=== PATIENT | female | born 1950 | race Caucasian/White ===

== ENCOUNTER → 2017-08-04 15:47 | Outpatient (CLI) | payer MEDICARE, OTHER, SELFPAY ==
[2017-08-04 18:26] LABS: Anion Gap 6 (5-15); BUN 20 mg/dL (7-18); BUN/Creat Ratio 32.7 RATIO (10-20); Calcium,Total 9.3 mg/dL (8.5-10.1); Chloride 106 mmol/L (98-107); Creatinine, Serum 0.61 mg/dL (0.55-1.02); EST Glomerular Filtration Rate 104 mL/min (>60); Est Glom Filt Rate - Afr Amer 125 mL/min (>60); Glucose 88 mg/dL (74-106); Potassium 3.8 mmol/L (3.5-5.1); Sodium Level 140 mmol/L (136-145); T4 Free Direct 0.89 ng/dL (0.76-1.46); Thyroid Stim Hormone (TSH) 2.71 uIU/mL (0.358-3.74)
== END ==
PROVIDERS: Family Provider Family Medicine; PCP Family Medicine; Visit Provider Family Medicine
DX: E03.9 Hypothyroidism, unspecified (principal); R73.01 Impaired fasting glucose
CPT/HCPCS: 36415; 80048; 84439; 84443

== ENCOUNTER 2017-12-09 03:29 | Emergency (ER) | payer MEDICARE, OTHER, SELFPAY ==
[2017-12-09 03:30] VITALS: BP 166/92; PULSE 70; RESP 17; TEMP 36.6; O2SAT 96; BMI 38.3
--- NOTE | 2017-12-09 03:46 | EKG12_ITS ---
Test Reason : ABD PAIN Blood Pressure : / mmHG Vent. Rate : 062 BPM Atrial Rate : 062 BPM P-R Int : 162 ms QRS Dur : 092 ms QT Int : 406 ms P-R-T Axes : 018 026 031 degrees QTc Int : 412 ms Normal sinus rhythm Normal ECG Confirmed by CAROLE CORRAL ([id number]), editor magazine RADHA CORDOVA ([id number]) on 12/15/2017 2:00:29 PM Referred By: NELLY Confirmed By:CAROLE CORRAL
[2017-12-09 04:03] LABS: Mucous, Urine 0 SEEN /hpf (<or=2+); Squamous Epithelial Cells - UA 0 SEEN /hpf (5-10)
[2017-12-09 04:05] LABS: Color, Urine Yellow (Yellow); Glucose, Dipstick Normal (Normal); Ketone-Dipstick Negative (Negative); Leukocyte Esterase-Dipstick 25 /ul (Negative); Nitrite-Dipstick Negative (Negative); Occult Blood-Urine 10 /ul (Negative); Protein-Dipstick Negative (Negative); Specific Gravity, Urine 1.015 (1.002-1.030); Urine Bilirubin Dipstick Negative (Negative); Urine Clarity Clear (Clear); Urine Urobilinogen Normal (Normal)
[2017-12-09] MEDS: Ondansetron 4 MG/2 ML Vial IV (04:05)
[2017-12-09] MEDS: Morphine 4 MG/ML Syringe IV (04:05)
[2017-12-09] MEDS: 0.9% Normal Saline 1,000 ML 1000 ML IV (04:05)
[2017-12-09 04:14] LABS: White Blood Cells 0-5 SEEN /hpf (0-5)
[2017-12-09 04:15] LABS: Bacteria RARE /hpf (None Seen)
[2017-12-09 04:16] LABS: Absolute Lymphocyte Count 1.74 X10^3/ul (0.83-4.51); Absolute Neutrophil Count 4.9 X10^3/uL (2.0-7.7); Basophil# 0.03 X10^3/uL; Basophil% 0.4 % (0-1); Eosinophil# 0.18 X10^3/uL; Eosinophils% 2.4 % (0-5); Hemoglobin 13.8 g/dl (12.0-15.0); Lymphocyte # 1.74 X10^3/ul (4.0); Lymphocyte % 23.6 % (19-41); Mean Corp Hgb Conc 33.7 g/gl (32-36); Mean Corpuscular Hgb 30.1 pg (27.0-32.0); Mean Corpuscular Volume 89.3 fL (81-99); Mean Platelet Vol. 10.5 fl (6.2-12.0); Monocyte# 0.49 X10^3/uL; Monocyte% 6.6 % (0-10); Neutrophil # 4.92 X10^3/uL (2.7-7.7); Neutrophil % 66.9 % (47-70); Platelet Count 280 K/mm3 (150-450); RBC Distribution Width CV 13.1 % (11.6-14.6); RBC Distribution Width SD 42.4 fl (35.1-43.9); Red Blood Count 4.59 M/mm3 (4.2-5.4); White Blood Count 7.4 K/mm3 (4.4-11.0)
--- NOTE | 2017-12-09 04:16 | ED.VISSUMM ---
- ER Visit Summary Date of Service: 12/09/17 Chief Complaint: Abdominal pain History of Present Illness: The patient is a 67 F who presents for 16 hours of abdominal pain. Pain is gradually worsened and is burning, located in the epigastrium and radiating outward into the diffuse upper abdomen bilaterally. Patient denies any associated vomiting or diarrhea but has felt nauseated. She has constipation at baseline and states she has been passing flatus and belching. No fever, chest pain, shortness of breath. No other complaints. She tried Melisa-[place] without relief. She has had decreased p.o. intake and increased bloating secondary to her pain. Patient has history of type 2 diabetes that has resolved, hypothyroidism. No cardiac history. Physical Examination: Vital signs: afebrile, hemodynamically stable, no hypoxia on room air General: well nourished, well developed, in no distress Skin: warm, dry, no rash, no pallor HEENT: normocephalic and atraumatic; PERRL, EOMI, moist mucous membranes Cardiovascular: regular rate and rhythm without murmurs, no peripheral edema, 2+ pulses all distal extremities Respiratory: No increased work of breathing, lungs are clear to auscultation bilaterally, no rales, rhonchi or wheezing Abdominal: Abdomen is soft, diffusely tender in the upper quadrants and epigastrium with hyperactive bowel sounds, no guarding or rebound, no masses MSK: Moves all extremities, no deformities, normal strength Neuro: Awake and alert, oriented ?4. No facial droop, sensation and motor function intact and symmetric Test Results: Abnormal Lab Results 12/09/17 12/09/17 12/09/17 04:00 04:05 04:05 WBC 7.4 RBC 4.59 Hgb 13.8 Hct 41.0 MCV 89.3 MCH 30.1 MCHC 33.7 RDW 13.1 RDW Differential 42.4 Plt Count 280 MPV 10.5 Immature Gran % (Auto) 0.100 Neut % (Auto) 66.9 Lymph % (Auto) 23.6 [place] % (Auto) 6.6 Eos % (Auto) 2.4 Baso % (Auto) 0.4 Absolute Neuts (auto) 4.9 Absolute Lymphs (auto) 1.74 Total Counted Not Reportable Sodium 142 Potassium 3.9 Chloride 103 Carbon Dioxide 29.0 Anion Gap 10 BUN 19 H Creatinine 0.78 Estim Creat Clear Calc 48.45 Est GFR (MDRD) Af Amer 94 Est GFR (MDRD) Non-Af 78 BUN/Creatinine Ratio 24.3 H Glucose 105 Lactic Acid Calcium 10.5 H Total Bilirubin 0.60 AST 23 ALT 26 Alkaline Phosphatase 91 Troponin I < 0.015 Total Protein 6.9 Albumin 3.3 Globulin 3.6 Albumin/Globulin Ratio 0.9 Lipase 98 Urine Color Yellow Urine Clarity Clear Urine pH 7.0 Ur Specific [place] 1.015 Urine Protein Negative Urine Glucose (UA) Normal Urine Ketones Negative Urine Occult Blood 10 H Urine Nitrite Negative Urine Bilirubin Negative Urine Urobilinogen Normal Ur Leukocyte Esterase 25 H Urine RBC 0-5 SEEN Urine WBC 0-5 SEEN Ur Squamous Epith Cells 0 SEEN Urine Bacteria RARE Urine Mucus 0 SEEN 12/09/17 04:05 WBC RBC Hgb Hct MCV MCH MCHC RDW RDW Differential Plt Count MPV Immature Gran % (Auto) Neut % (Auto) Lymph % (Auto) [place] % (Auto) Eos % (Auto) Baso % (Auto) Absolute Neuts (auto) Absolute Lymphs (auto) Total Counted Sodium Potassium Chloride Carbon Dioxide Anion Gap BUN Creatinine Estim Creat Clear Calc Est GFR (MDRD) Af Amer Est GFR (MDRD) Non-Af BUN/Creatinine Ratio Glucose Lactic Acid 1.5 Calcium Total Bilirubin AST ALT Alkaline Phosphatase Troponin I Total Protein Albumin Globulin Albumin/Globulin Ratio Lipase Urine Color Urine Clarity Urine pH Ur Specific [place] Urine Protein Urine Glucose (UA) Urine Ketones Urine Occult Blood Urine Nitrite Urine Bilirubin Urine Urobilinogen Ur Leukocyte Esterase Urine RBC Urine WBC Ur Squamous Epith Cells Urine Bacteria Urine Mucus Clinical Impression(s) from Imaging Studies Abdomen/Pelvis CT 12/09/17 03:46 IMPRESSION: No acute findings in the abdomen or pelvis. No evidence of bowel obstruction. Normal appendix. Low-attenuation lesions in the liver probably representing cysts or hemangiomas. Correlate with ultrasound. Cholelithiasis. Bilateral renal cysts. Left ovarian cyst probably representing a physiologic cyst. Additional nonemergent findings as above. Electronically Signed: Flakito King MD at 5:27 EDT , Service support , Chest X-Ray 12/09/17 04:10 IMPRESSION: Mild left basilar atelectasis. No evidence for acute cardiopulmonary pathology. Electronically Signed: Bret Garcia MD at 5:21 EDT , Service support , Medications Given Discontinued Medications Al Hydroxide/Mg Hydroxide (Mylanta Ii) 30 ml PO X1 ONE Stop: 12/09/17 05:44 Sodium Chloride () 1,000 mls @ 1,000 mls/hr IV .Q1H ONE Stop: 12/09/17 04:45 Last Admin: 12/09/17 04:05 Dose: 1,000 mls/hr Lidocaine HCl (Xylocaine Viscous) 15 ml PO X1 ONE Stop: 12/09/17 05:44 Morphine Sulfate () 4 mg IV X1 ONE Stop: 12/09/17 03:47 Last Admin: 12/09/17 04:05 Dose: 4 mg Multi-Ingredient GI Drug () 1 ea PO X1 ONE Stop: 12/09/17 05:44 Ondansetron HCl (Zofran) 4 mg IV X1 ONE Stop: 12/09/17 03:47 Last Admin: 12/09/17 04:05 Dose: 4 mg Emergency Department Course and Treatment: Patient presents with a diffuse upper abdominal pain and burning, including the epigastrium. Because of the upper abdominal pain in an elderly female, cardiac workup was included. EKG showed sinus rhythm without ischemic changes. Troponin negative. Chest x-ray showed no acute process. CBC showed no leukocytosis or anemia. Chemistry panel showed no electrolyte derangements, no hepatic abnormalities, and a normal lipase. Urine was normal and negative for infection. CT abdomen and pelvis was performed because of patient's complaints and history of prior abdominal surgery. It showed no bowel obstruction and did show cholelithiasis without cholecystitis. There was no acute findings to explain patient's symptoms. She had morphine, Zofran and IV hydration, with great improvement in her symptoms. She was given a GI cocktail for mild residual symptoms. We discussed that patient may be having biliary colic, especially if her symptoms began after rich or fatty meals. Patient will monitor this to see if this is a recurrent issue. We discussed return precautions. She was given a prescription for Mylanta or she can use [id number] medications as she needs for symptomatic relief. Patient is to follow-up with her primary care doctor. She was discharged home in improved condition. Treatment Plan: [] Disposition: [] Impression: Abdominal pain, cholelithiasis without cholecystitis, dyspepsia This note was generated with [employer] dictation software. It may contain incorrect words, spelling, and punctuation that were not noted in review of the chart prior to signing ED Disposition - Plan for ED Patient: Disposition: Home or Assisted Living Chief Complaint: Abd Pain Instructions: ED Abdominal Pain Unkn Cause, ED Abdominal Pain Gallstone Poss Prescriptions: Mag Hydrox/Al Hydrox/Simeth [Mylanta II] 15 ml PO Q4H PRN PRN #1 bottle PRN Reason: Indigestion Referrals: Negrito Méndez MD [Primary Care Provider] - 1-2 Days if not improving Additional Instructions: Your lab work today was normal. Your CAT scan of your abdomen showed a gallstone but no signs of infection, bowel obstruction, or other obvious cause of your abdominal pain and bloating/burning. It is possible that your gallstone could be causing this upper abdominal pain. If you notice that it occurs after you eat a fatty, rich or heavy meal, please follow-up with your doctor or a surgeon to discuss whether your gallbladder needs to be removed. If at any time you have severe abdominal pain, fever, uncontrolled vomiting, severe diarrhea, or any other concerning symptoms, please return immediately to the emergency department for another evaluation.
[2017-12-09 04:19] LABS: Red Blood Cells-Urine 0-5 SEEN /hpf (0-5)
--- NOTE | 2017-12-09 04:19 | ED.DCSUM_ITS ---
- ER Visit Summary Date of Service: 12/09/17 Chief Complaint: Abdominal pain History of Present Illness: The patient is a 67 F who presents for 16 hours of abdominal pain. Pain is gradually worsened and is burning, located in the epigastrium and radiating outward into the diffuse upper abdomen bilaterally. Patient denies any associated vomiting or diarrhea but has felt nauseated. She has constipation at baseline and states she has been passing flatus and belching. No fever, chest pain, shortness of breath. No other complaints. She tried Melisa-[place] without relief. She has had decreased p.o. intake and increased bloating secondary to her pain. Patient has history of type 2 diabetes that has resolved, hypothyroidism. No cardiac history. Physical Examination: Vital signs: afebrile, hemodynamically stable, no hypoxia on room air General: well nourished, well developed, in no distress Skin: warm, dry, no rash, no pallor HEENT: normocephalic and atraumatic; PERRL, EOMI, moist mucous membranes Cardiovascular: regular rate and rhythm without murmurs, no peripheral edema, 2 + pulses all distal extremities Respiratory: No increased work of breathing, lungs are clear to auscultation bilaterally, no rales, rhonchi or wheezing Abdominal: Abdomen is soft, diffusely tender in the upper quadrants and epigastrium with hyperactive bowel sounds, no guarding or rebound, no masses MSK: Moves all extremities, no deformities, normal strength Neuro: Awake and alert, oriented ?4. No facial droop, sensation and motor function intact and symmetric Test Results: Abnormal Lab Results 12/09/17 12/09/17 12/09/17 04:00 04:05 04:05 WBC 7.4 RBC 4.59 Hgb 13.8 Hct 41.0 MCV 89.3 MCH 30.1 MCHC 33.7 RDW 13.1 RDW Differential 42.4 Plt Count 280 MPV 10.5 Immature Gran % (Auto) 0.100 Neut % (Auto) 66.9 Lymph % (Auto) 23.6 [place] % (Auto) 6.6 Eos % (Auto) 2.4 Baso % (Auto) 0.4 Absolute Neuts (auto) 4.9 Absolute Lymphs (auto) 1.74 Total Counted Not Reportable Sodium 142 Potassium 3.9 Chloride 103 Carbon Dioxide 29.0 Anion Gap 10 BUN 19 H Creatinine 0.78 Estim Creat Clear Calc 48.45 Est GFR (MDRD) Af Amer 94 Est GFR (MDRD) Non-Af 78 BUN/Creatinine Ratio 24.3 H Glucose 105 Lactic Acid Calcium 10.5 H Total Bilirubin 0.60 AST 23 ALT 26 Alkaline Phosphatase 91 Troponin I < 0.015 Total Protein 6.9 Albumin 3.3 Globulin 3.6 Albumin/Globulin Ratio 0.9 Lipase 98 Urine Color Yellow Urine Clarity Clear Urine pH 7.0 Ur Specific [place] 1.015 Urine Protein Negative Urine Glucose (UA) Normal Urine Ketones Negative Urine Occult Blood 10 H Urine Nitrite Negative Urine Bilirubin Negative Urine Urobilinogen Normal Ur Leukocyte Esterase 25 H Urine RBC 0-5 SEEN Urine WBC 0-5 SEEN Ur Squamous Epith Cells 0 SEEN Urine Bacteria RARE Urine Mucus 0 SEEN 12/09/17 04:05 WBC RBC Hgb Hct MCV MCH MCHC RDW RDW Differential Plt Count MPV Immature Gran % (Auto) Neut % (Auto) Lymph % (Auto) [place] % (Auto) Eos % (Auto) Baso % (Auto) Absolute Neuts (auto) Absolute Lymphs (auto) Total Counted Sodium Potassium Chloride Carbon Dioxide Anion Gap BUN Creatinine Estim Creat Clear Calc Est GFR (MDRD) Af Amer Est GFR (MDRD) Non-Af BUN/Creatinine Ratio Glucose Lactic Acid 1.5 Calcium Total Bilirubin AST ALT Alkaline Phosphatase Troponin I Total Protein Albumin Globulin Albumin/Globulin Ratio Lipase Urine Color Urine Clarity Urine pH Ur Specific [place] Urine Protein Urine Glucose (UA) Urine Ketones Urine Occult Blood Urine Nitrite Urine Bilirubin Urine Urobilinogen Ur Leukocyte Esterase Urine RBC Urine WBC Ur Squamous Epith Cells Urine Bacteria Urine Mucus Clinical Impression(s) from Imaging Studies Abdomen/Pelvis CT 12/09/17 03:46 IMPRESSION: No acute findings in the abdomen or pelvis. No evidence of bowel obstruction. Normal appendix. Low-attenuation lesions in the liver probably representing cysts or hemangiomas. Correlate with ultrasound. Cholelithiasis. Bilateral renal cysts. Left ovarian cyst probably representing a physiologic cyst. Additional nonemergent findings as above. Electronically Signed: Flakito King MD at 5:27 EDT , Service support , Chest X-Ray 12/09/17 04:10 IMPRESSION: Mild left basilar atelectasis. No evidence for acute cardiopulmonary pathology. Electronically Signed: Bret Garcia MD at 5:21 EDT , Service support , Medications Given Discontinued Medications Al Hydroxide/Mg Hydroxide (Mylanta Ii) 30 ml PO X1 ONE Stop: 12/09/17 05:44 Sodium Chloride () 1,000 mls @ 1,000 mls/hr IV .Q1H ONE Stop: 12/09/17 04:45 Last Admin: 12/09/17 04:05 Dose: 1,000 mls/hr Lidocaine HCl (Xylocaine Viscous) 15 ml PO X1 ONE Stop: 12/09/17 05:44 Morphine Sulfate () 4 mg IV X1 ONE Stop: 12/09/17 03:47 Last Admin: 12/09/17 04:05 Dose: 4 mg Multi-Ingredient GI Drug () 1 ea PO X1 ONE Stop: 12/09/17 05:44 Ondansetron HCl (Zofran) 4 mg IV X1 ONE Stop: 12/09/17 03:47 Last Admin: 12/09/17 04:05 Dose: 4 mg Emergency Department Course and Treatment: Patient presents with a diffuse upper abdominal pain and burning, including the epigastrium. Because of the upper abdominal pain in an elderly female, cardiac workup was included. EKG showed sinus rhythm without ischemic changes. Troponin negative. Chest x-ray showed no acute process. CBC showed no leukocytosis or anemia. Chemistry panel showed no electrolyte derangements, no hepatic abnormalities, and a normal lipase. Urine was normal and negative for infection. CT abdomen and pelvis was performed because of patient's complaints and history of prior abdominal surgery. It showed no bowel obstruction and did show cholelithiasis without cholecystitis. There was no acute findings to explain patient's symptoms. She had morphine, Zofran and IV hydration, with great improvement in her symptoms. She was given a GI cocktail for mild residual symptoms. We discussed that patient may be having biliary colic, especially if her symptoms began after rich or fatty meals. Patient will monitor this to see if this is a recurrent issue. We discussed return precautions. She was given a prescription for Mylanta or she can use [id number] medications as she needs for symptomatic relief. Patient is to follow-up with her primary care doctor. She was discharged home in improved condition. Treatment Plan: [] Disposition: [] Impression: Abdominal pain, cholelithiasis without cholecystitis, dyspepsia This note was generated with [employer] dictation software. It may contain incorrect words, spelling, and punctuation that were not noted in review of the chart prior to signing ED Disposition - Plan for ED Patient: Disposition: Home or Assisted Living Chief Complaint: Abd Pain Instructions: ED Abdominal Pain Unkn Cause, ED Abdominal Pain Gallstone Poss Prescriptions: Mag Hydrox/Al Hydrox/Simeth [Mylanta II] 15 ml PO Q4H PRN PRN #1 bottle PRN Reason: Indigestion Referrals: Negrito Méndez MD [Primary Care Provider] - 1-2 Days if not improving Additional Instructions: Your lab work today was normal. Your CAT scan of your abdomen showed a gallstone but no signs of infection, bowel obstruction, or other obvious cause of your abdominal pain and bloating/burning. It is possible that your gallstone could be causing this upper abdominal pain. If you notice that it occurs after you eat a fatty, rich or heavy meal, please follow-up with your doctor or a surgeon to discuss whether your gallbladder needs to be removed. If at any time you have severe abdominal pain, fever, uncontrolled vomiting, severe diarrhea, or any other concerning symptoms, please return immediately to the emergency department for another evaluation.
[2017-12-09 04:29] LABS: POSITIVE COUNT NO; POSITIVE DIFFERENTIAL NO; POSITIVE MORPHOLOGY NO
[2017-12-09 04:40] LABS: ALB/GLOB Ratio 0.9 RATIO (0.9-2.4); AST(SGOT) 23 U/L (15-37); Alanine Aminotransfer ALT/SGPT 26 U/L (13-56); Albumin, Serum 3.3 g/dL (3.2-5.0); Alkaline Phosphatase 91 U/L (45-117); Anion Gap 10 (5-15); BUN 19 mg/dL (7-18); BUN/Creat Ratio 24.3 RATIO (10-20); Calcium,Total 10.5 mg/dL (8.5-10.1); Chloride 103 mmol/L (98-107); Creatinine, Serum 0.78 mg/dL (0.55-1.02); EST Glomerular Filtration Rate 78 mL/min (>60); Est Glom Filt Rate - Afr Amer 94 mL/min (>60); Estimated Creatinine Clearance 48.45 ml/min; Globulin 3.6 g/dL (2.2-4.2); Glucose 105 mg/dL (74-106); Lipase 98 U/L (73-393); Potassium 3.9 mmol/L (3.5-5.1); Protein, Total 6.9 g/dL (6.4-8.2); Sodium Level 142 mmol/L (136-145)
[2017-12-09 04:45] LABS: Lactic Acid 1.5 mmol/L (0.4-2.0)
--- NOTE | 2017-12-09 05:44 | ED.DEP ---
ED Disposition - Plan for ED Patient: Disposition: Home or Assisted Living Chief Complaint: Abd Pain Instructions: ED Abdominal Pain Gallstone Poss, ED Abdominal Pain Unkn Cause Prescriptions: Mag Hydrox/Al Hydrox/Simeth [Mylanta II] 15 ml PO Q4H PRN PRN #1 bottle PRN Reason: Indigestion Referrals: Negrito Méndez MD [Primary Care Provider] - 1-2 Days if not improving Additional Instructions: Your lab work today was normal. Your CAT scan of your abdomen showed a gallstone but no signs of infection, bowel obstruction, or other obvious cause of your abdominal pain and bloating/burning. It is possible that your gallstone could be causing this upper abdominal pain. If you notice that it occurs after you eat a fatty, rich or heavy meal, please follow-up with your doctor or a surgeon to discuss whether your gallbladder needs to be removed. If at any time you have severe abdominal pain, fever, uncontrolled vomiting, severe diarrhea, or any other concerning symptoms, please return immediately to the emergency department for another evaluation.
[2017-12-09] MEDS: Mag Hydrox/Al Hydrox/Simeth 30 ML UDC PO (05:53)
[2017-12-09 05:58] VITALS: BP 126/74; PULSE 59; RESP 18; O2SAT 94
== END 2017-12-09 06:05 | disposition home or self-care (01) ==
PROVIDERS: Emergency Provider Emergency Medicine; Family Provider Family Medicine; PCP Family Medicine
DX: K80.20 Calculus of gallbladder without cholecystitis without obstruction (principal); E03.9 Hypothyroidism, unspecified
CPT/HCPCS: 71045; 74177; 80053; 81001; 83605; 83690; 84484; 85025; 93005; 96361; 96374; 96375; 99285; J7030; Q9967; A4216; J2405

== ENCOUNTER → 2018-08-10 10:07 | Outpatient (CLI) | payer MEDICARE, OTHER, SELFPAY ==
[2018-03-26 10:45] VITALS: BMI 38.3
[2018-08-10 12:35] LABS: Absolute Lymphocyte Count 1.75 X10^3/ul (0.83-4.51); Absolute Neutrophil Count 3.7 X10^3/uL (2.0-7.7); Basophil# 0.03 X10^3/uL; Basophil% 0.5 % (0-1); Eosinophil# 0.19 X10^3/uL; Eosinophils% 3.2 % (0-5); Hematocrit 42.2 % (37-47); Lymphocyte # 1.75 X10^3/ul (4.0); Lymphocyte % 29.1 % (19-41); Mean Corp Hgb Conc 33.2 g/gl (32-36); Mean Corpuscular Volume 87.6 fL (81-99); Mean Platelet Vol. 11.4 fl (6.2-12.0); Monocyte# 0.39 X10^3/uL; Monocyte% 6.5 % (0-10); Neutrophil # 3.65 X10^3/uL (2.7-7.7); Neutrophil % 60.5 % (47-70); Platelet Count 269 K/mm3 (150-450); RBC Distribution Width CV 13.9 % (11.6-14.6); RBC Distribution Width SD 44.1 fl (35.1-43.9); Red Blood Count 4.82 M/mm3 (4.2-5.4)
[2018-08-10 12:42] LABS: POSITIVE COUNT NO; POSITIVE DIFFERENTIAL NO; POSITIVE MORPHOLOGY NO
[2018-08-10 13:08] LABS: Vitamin B12 463 pg/mL (211-911)
[2018-08-10 13:20] LABS: BUN 22 mg/dL (7-18); Creatinine, Serum 0.67 mg/dL (0.55-1.02); EST Glomerular Filtration Rate 92 mL/min (>60); Glucose 84 mg/dL (74-106)
[2018-08-10 13:21] LABS: Anion Gap 2 (5-15); BUN/Creat Ratio 32.7 RATIO (10-20); Calcium,Total 9.2 mg/dL (8.5-10.1); Chloride 107 mmol/L (98-107); Est Glom Filt Rate - Afr Amer 112 mL/min (>60); Sodium Level 139 mmol/L (136-145); T4 Free Direct 0.93 ng/dL (0.76-1.46); Thyroid Stim Hormone (TSH) 0.51 uIU/mL (0.358-3.74)
== END ==
PROVIDERS: Family Provider Family Medicine; PCP Family Medicine; Visit Provider Family Medicine
DX: E03.9 Hypothyroidism, unspecified (principal); R53.83 Other fatigue; E53.8 Deficiency of other specified B group vitamins
CPT/HCPCS: 36415; 80048; 82607; 84439; 84443; 85025

== ENCOUNTER → 2019-02-02 08:00 | Outpatient (CLI) | payer MEDICARE, OTHER, SELFPAY ==
[2018-09-03 13:28] VITALS: BMI 38.3
[2019-02-02 12:30] LABS: Absolute Lymphocyte Count 1.61 X10^3/uL (0.83-4.51); Absolute Neutrophil Count 3.6 X10^3/uL (2.0-7.7); Basophil# 0.05 X10^3/uL; Basophil% 0.9 % (0-1); Eosinophil# 0.13 X10^3/uL; Eosinophils% 2.2 % (0-5); Hemoglobin 13.7 g/dL (12.0-15.0); Lymphocyte # 1.61 X10^3/ul (4.0); Lymphocyte % 27.4 % (19-41); Mean Corp Hgb Conc 32.6 g/dL (32-36); Mean Corpuscular Hgb 29.7 pg (27.0-32.0); Mean Corpuscular Volume 91.1 fL (81-99); Mean Platelet Vol. 10.8 fl (6.2-12.0); Monocyte# 0.48 X10^3/uL; Monocyte% 8.2 % (0-10); NRBC Flagged by Analyzer 0 % (0-5); Neutrophil # 3.58 X10^3/uL (2.7-7.7); Platelet Count 284 K/mm3 (150-450); RBC Distribution Width CV 12.6 % (11.6-14.6); RBC Distribution Width SD 41.6 fl (35.1-43.9); Red Blood Count 4.61 M/mm3 (4.2-5.4); White Blood Count 5.9 K/mm3 (4.4-11.0)
[2019-02-02 12:50] LABS: Hemoglobin A1c 5.5 % (4.2-6.3)
[2019-02-02 13:02] LABS: ALB/GLOB Ratio 0.9 RATIO (0.9-2.4); AST(SGOT) 15 U/L (15-37); Alanine Aminotransfer ALT/SGPT 21 U/L (13-56); Albumin, Serum 3.5 g/dL (3.2-5.0); Alkaline Phosphatase 95 U/L (45-117); Anion Gap 6 (5-15); BUN 18 mg/dL (7-18); BUN/Creat Ratio 29.8 RATIO (10-20); Calcium,Total 9.1 mg/dL (8.5-10.1); Chloride 108 mmol/L (98-107); Cholesterol 191 mg/dL (200); EST Glomerular Filtration Rate 104 mL/min (>60); Est Glom Filt Rate - Afr Amer 126 mL/min (>60); Globulin 3.8 g/dL (2.2-4.2); Glucose 94 mg/dL (74-106); High Density Lipoprotein 49 mg/dL; Potassium 3.7 mmol/L (3.5-5.1); Protein, Total 7.3 g/dL (6.4-8.2); Sodium Level 141 mmol/L (136-145); T4 Free Direct 1.16 ng/dL (0.76-1.46); Thyroid Stim Hormone (TSH) 0.11 uIU/mL (0.358-3.74); Triglycerides 169 mg/dL; Very Low Density Lipoprotein 34 mg/dL (5-40)
== END ==
PROVIDERS: Family Provider Family Medicine; PCP Family Medicine; Visit Provider Family Medicine
DX: E03.9 Hypothyroidism, unspecified (principal); R73.01 Impaired fasting glucose; E78.5 Hyperlipidemia, unspecified; R53.83 Other fatigue
CPT/HCPCS: 36415; 80053; 80061; 83036; 84439; 84443; 85025

== ENCOUNTER → 2019-04-08 09:22 | Outpatient (CLI) | payer MEDICARE, OTHER, SELFPAY ==
[2018-09-03 13:28] VITALS: BMI 38.3
[2019-04-08 13:16] LABS: Anion Gap 6 (5-15); BUN 18 mg/dL (7-18); BUN/Creat Ratio 23.4 RATIO (10-20); Calcium,Total 9.3 mg/dL (8.5-10.1); Chloride 106 mmol/L (98-107); Creatinine, Serum 0.77 mg/dL (0.55-1.02); EST Glomerular Filtration Rate 79 mL/min (>60); Est Glom Filt Rate - Afr Amer 96 mL/min (>60); Glucose 85 mg/dL (74-106); Potassium 3.6 mmol/L (3.5-5.1); Sodium Level 141 mmol/L (136-145); T4 Free Direct 0.91 ng/dL (0.76-1.46); Thyroid Stim Hormone (TSH) 4.54 uIU/mL (0.358-3.74)
== END ==
PROVIDERS: Family Provider Family Medicine; PCP Family Medicine; Visit Provider Family Medicine
DX: E03.9 Hypothyroidism, unspecified (principal); E78.5 Hyperlipidemia, unspecified
CPT/HCPCS: 36415; 80048; 84439; 84443

== ENCOUNTER 2019-06-05 20:15 | Emergency (ER) | payer MEDICARE, OTHER, SELFPAY ==
[2018-09-03 13:28] VITALS: BMI 38.3
[2019-06-05 20:33] VITALS: BP 159/88; PULSE 74; RESP 15; TEMP 36.9; O2SAT 95; BMI 38.2
--- NOTE | 2019-06-05 21:34 | ED.VISSUMM ---
- ER Visit Summary Date of Service: 06/05/19 Chief Complaint: Facial swelling History of Present Illness: The patient is a [address] Negrito Méndez and Dr. Derek Young. She reports that approximately 1 hour ago they were sitting watching TV when all of a sudden she had the abrupt onset of swelling just anterior to her left ear. She denies any pain. States that when she put her hand on it it felt hot. States that the swelling has essentially resolved. She denies any dental pain. No fever or chills. She does report that she has a cough is productive green sputum without blood. However, her cough is actually been improving. She has been using Mucinex for this. She denies any other complaints. Physical Examination: Vitals: Stable. Afebrile. General: Well-nourished and well-developed. Head: Normocephalic atraumatic. Mild swelling just anterior to her left ear. She has a normal Stensen's duct. There is narrowing edema or warmth to suggest infection. I do not appreciate any cervical lymphadenopathy or palpable submandibular glands. Neck: Supple, no lymphadenopathy. No JVD. Nontender. Cardiovascular: Regular rate and rhythm. No murmurs. Respiratory: No respiratory distress. Clear to auscultation bilaterally. Abdominal: Soft, nontender, nondistended, normal bowel sounds. No guarding, rebound, or peritoneal signs. Back: Nontender. Extremities: Nontender, no edema. Skin: Normal color, no rash. Neurologic: Alert and oriented ?3. Cranial nerves II through XII are intact. Normal strength and sensation. Psych: Normal affect. Emergency Department Course and Treatment: Patient was reassured. With abrupt onset of swelling and swelling that is resolved already I really do not think that there is anything it could be other than a salivary duct. She refused an x-ray for her cough. Treatment Plan: Patient be discharged with instructions to push fluids. Use lemon drops. Follow-up with Dr. Derek Young in 3 to 5 days for another exam. Return to the emergency department for any worsening symptoms. Disposition: To home in improved and stable condition. Impression: 1. Facial swelling. This note was generated with [employer] dictation software. It may contain incorrect words, spelling, and punctuation that were not noted in review of the chart prior to signing ED Disposition - Plan for ED Patient: Disposition: Home or Assisted Living Instructions: SALIVARY GLAND SWELLING, Unk Cause Referrals: Derek Alberts MD [STAFF PHYSICIAN] - 3-5 Days
== END 2019-06-05 21:49 | disposition home or self-care (01) ==
LOC: ED 21:23
PROVIDERS: Emergency Provider Emergency Medicine; PCP Family Medicine
DX: R22.0 Localized swelling, mass and lump, head (principal); R05 Cough
CPT/HCPCS: 99282

== ENCOUNTER → 2019-10-27 14:11 | Outpatient (CLI) | payer MEDICARE, OTHER, SELFPAY ==
[2018-09-03 13:28] VITALS: BMI 38.3
[2019-10-27 17:10] LABS: Thyroid Stim Hormone (TSH) 0.12 uIU/mL (0.358-3.74)
[2019-10-28 08:23] LABS: SARS-COV-2 TOTAL ABS Nonreactive (Nonreactive)
== END ==
PROVIDERS: Family Provider Family Medicine; PCP Family Medicine; Visit Provider Family Medicine
DX: E03.9 Hypothyroidism, unspecified (principal); Z13.0 Encounter for screening for diseases of the blood and blood-forming organs and certain disorders involving the immune mechanism; Z03.818 Encounter for observation for suspected exposure to other biological agents ruled out
CPT/HCPCS: 84443; 86769; 86900; 86901; G2023

== ENCOUNTER → 2020-02-01 10:07 | Outpatient (CLI) | payer MEDICARE, OTHER, SELFPAY ==
[2020-02-01 12:27] LABS: Absolute Lymphocyte Count 1.64 X10^3/uL (0.83-4.51); Absolute Neutrophil Count 3.7 X10^3/uL (2.0-7.7); Basophil# 0.05 X10^3/uL; Basophil% 0.9 % (0-1); Eosinophil# 0.12 X10^3/uL; Eosinophils% 2.1 % (0-5); Hematocrit 42.9 % (37-47); Hemoglobin 13.7 g/dL (12.0-15.0); Lymphocyte # 1.64 X10^3/ul (4.0); Mean Corp Hgb Conc 31.9 g/dL (32-36); Mean Corpuscular Hgb 29.5 pg (27.0-32.0); Mean Corpuscular Volume 92.3 fL (81-99); Mean Platelet Vol. 10.8 fl (6.2-12.0); Monocyte# 0.37 X10^3/uL; Monocyte% 6.3 % (0-10); NRBC Flagged by Analyzer 0 % (0-5); Neutrophil # 3.65 X10^3/uL (2.7-7.7); Neutrophil % 62.4 % (47-70); Platelet Count 322 K/mm3 (150-450); RBC Distribution Width CV 13.5 % (11.6-14.6); RBC Distribution Width SD 45.8 fl (35.1-43.9); Red Blood Count 4.65 M/mm3 (4.2-5.4); White Blood Count 5.9 K/mm3 (4.4-11.0)
[2020-02-01 13:16] LABS: ALB/GLOB Ratio 0.8 RATIO (0.9-2.4); AST(SGOT) 24 U/L (15-37); Alanine Aminotransfer ALT/SGPT 28 U/L (13-56); Albumin, Serum 3.5 g/dL (3.2-5.0); Alkaline Phosphatase 98 U/L (45-117); Anion Gap 7 (5-15); BUN 17 mg/dL (7-18); BUN/Creat Ratio 25.2 RATIO (10-20); Calcium,Total 8.9 mg/dL (8.5-10.1); Chloride 103 mmol/L (98-107); Creatinine, Serum 0.67 mg/dL (0.55-1.02); EST Glomerular Filtration Rate 92 mL/min (>60); Est Glom Filt Rate - Afr Amer 111 mL/min (>60); Globulin 4.3 g/dL (2.2-4.2); Glucose 93 mg/dL (74-106); Potassium 3.8 mmol/L (3.5-5.1); Protein, Total 7.8 g/dL (6.4-8.2); Sodium Level 138 mmol/L (136-145); T4 Free Direct 1.15 ng/dL (0.76-1.46); Thyroid Stim Hormone (TSH) 4.25 uIU/mL (0.358-3.74)
== END ==
PROVIDERS: PCP Family Medicine; Visit Provider Family Medicine
DX: E03.9 Hypothyroidism, unspecified (principal); E78.5 Hyperlipidemia, unspecified; R53.83 Other fatigue
CPT/HCPCS: 36415; 80053; 84439; 84443; 85025

== ENCOUNTER 2020-06-12 06:10 | Outpatient (RCR) | payer MEDICARE, SELFPAY ==
[2020-06-12] MEDS: COVID-19 VACC, MRNA(PFIZER)/PF 30 MCG/0.3 ML SYRINGE IM (08:18)
[2020-07-03] MEDS: COVID-19 VACC, MRNA(PFIZER)/PF 30 MCG/0.3 ML SYRINGE IM (08:12)
== END 2020-09-11 23:59 ==
LOC: IMMUN 06:10
PROVIDERS: PCP Family Medicine; Referring Provider Family Medicine; Visit Provider Family Medicine
DX: Z23 Encounter for immunization (principal)
CPT/HCPCS: 0001A; 0002A; 91300

== ENCOUNTER → 2021-03-14 10:06 | Outpatient (CLI) | payer MEDICARE, SELFPAY ==
--- NOTE | 2021-03-14 15:17 | PFTCOMP_ITS ---
COMPLETE PULMONARY FUNCTION TEST INTERPRETATION Brief HPI: Patient is a 70 year old female, currently under the care of Dr. Méndez, who presents to [facility] [place] for complete pulmonary function tests secondary to diagnosis of dyspnea. Respiratory therapist reports good effort and reproducible results. Interpretation: Forced expiration spirometry shows no large airways obstructive ventilatory defect with an FEV1 of 85% predicted. There is no significant bronchodilator response by strict ATS criteria. Spirograms are of good quality and plateau normally. The respiratory flow volume loop shows a normal pattern. Lung volumes by body plethysmography show a decreased total lung capacity at 4 L, 80% predicted. All other lung volumes are reduced symmetrically. Diffusion capacity by carbon monoxide is at the lower limit of normal at 68% predicted. The airway resistance is elevated. No previous pulmonary function tests were available for review. Impression: Mild restrictive ventilatory defect with a symmetric reduction in diffusion capacity. Consider chest imaging if not completed previously.
== END ==
PROVIDERS: PCP Family Medicine; Referring Provider Family Medicine; Visit Provider Family Medicine
DX: U09.9 Post COVID-19 condition, unspecified (principal); R06.00 Dyspnea, unspecified; R53.83 Other fatigue
CPT/HCPCS: 94060; 94726; 94729

== ENCOUNTER → 2021-03-18 10:11 | Outpatient (CLI) | payer MEDICARE, SELFPAY ==
[2021-03-18 10:47] VITALS: PULSE 100; PULSE 101; PULSE 73; PULSE 74; PULSE 87; PULSE 99; O2SAT 96; O2SAT 97; O2SAT 98
--- NOTE | 2021-03-21 08:36 | PCM.PSN.6M ---
PSN 6 Minute Walk Test 6 Minute Walk Test 6 Minute Walk Test: 6 Minute Walk Test PSN:6-Minute Walk Test Start: 03/18/21 10:47 Freq: Status: Active Protocol: [id number] Document 03/18/21 10:47 MAI (Rec: 03/18/21 10:50 MAI [id number]) 6 Minute Walk Test Date Performed 03/18/21 Time Performed 10:30 Height 5 ft 5 in Weight: 102.965 kg Weight in Pounds 227.[address]: Negrito Méndez Assistive device used: None Pre-test Oxygen Delivery Method Room Air Pulse Ox (%) 98 Pulse Rate (60-100 beats/min) 73 Dyspnea Sharif Scale (0-10) 0 Exertion Sharif Scale (6-20) 6 1st minute Oxygen Delivery Method Room Air Pulse Ox (%) 96 Pulse Rate (60-100 beats/min) 87 2nd minute Oxygen Delivery Method Room Air Pulse Ox (%) 96 Pulse Rate (60-100 beats/min) 99 3rd minute Oxygen Delivery Method Room Air Pulse Ox (%) 96 Pulse Rate (60-100 beats/min) 101 H 4th minute Oxygen Delivery Method Room Air Pulse Ox (%) 97 Pulse Rate (60-100 beats/min) 100 5th minute Oxygen Delivery Method Room Air Pulse Ox (%) 96 Pulse Rate (60-100 beats/min) 99 6th minute Oxygen Delivery Method Room Air Pulse Ox (%) 97 Pulse Rate (60-100 beats/min) 99 Dyspnea Sharif Scale (0-10) 3 Exertion Sharif Scale (6-20) 12 Post-test Oxygen Delivery Method Room Air Pulse Ox (%) 98 Pulse Rate (60-100 beats/min) 74 Full Laps Walked 20 Partial Lap, Number of Tiles Walked 26 Total Distance Walked (ft) 1206 Interpretation Interpretation: The patient ambulated 1206 feet over the course of 6 minutes beginning on room air without assistive devices. Pretesting oxygen saturation was noted to be 98% on room air. With ambulation, the kartik oxygen saturation was 96%. There was no significant exertional oxygen desaturation. Recommendations Recommendations: There is no indication for the use of supplemental oxygen at this time.
== END ==
PROVIDERS: PCP Family Medicine; Referring Provider Family Medicine; Visit Provider Family Medicine
DX: U09.9 Post COVID-19 condition, unspecified (principal); R06.00 Dyspnea, unspecified; R53.83 Other fatigue
CPT/HCPCS: 94618

== ENCOUNTER → 2021-03-21 12:55 | Outpatient (CLI) | payer MEDICARE, SELFPAY ==
--- NOTE | 2021-03-21 12:58 | US_ITS ---
STUDY: ULTRASOUND OF THE FEMALE PELVIS - COMPLETE REASON FOR EXAM: Female, 70 years old. Right pelvic pain LMP: The patient is postmenopausal. TECHNIQUE: Transabdominal and Transvaginal TECHNICAL QUALITY: Adequate. COMPARISON: None. FINDINGS: The uterus is anteverted and is in a midline position. The uterus measures 5.2 cm x 4.2 cm x 2.9 cm. There is a Nabothian cyst of the cervix. The endometrium is slightly thickened and measures 2.8 mm in thickness, and is hyperechoic. There is no demonstrated endometrial mass. There is no demonstrated myometrial mass. I.U.D. - The patient does not have an I.U.D. The right ovary is non-visualized. The left ovary is visualized. The left ovary measures 2.7 cm x 2 cm x 1.6 cm. There is a 1 cm x 1 cm x 1 cm follicle in the left ovary. There is no visualized left adnexal mass or complex lesion. There is normal arterial and normal venous vascularity. There is no fluid in the cul-de-sac. The pre void volume of the bladder was 461 ml. US/Transvaginal Non- IMPRESSION: Slightly thickened endometrium. 1 cm x 1 cm x 1 cm left ovarian follicle. Electronically Signed: Manoj Moraes MD at 15:39 EST , Service support ,
--- NOTE | 2021-03-21 12:58 | BI_ITS ---
MAMMOGRAPHY - BILATERAL SCREENING REASON FOR EXAM: Female, 70 years old. Routine annual screening examination. PERTINENT HISTORY: Grandmother with breast cancer. TECHNIQUE: Digital bilateral breast shawnee (3D mammographic acquisition) in the CC and MLO projections. 2-D mediolateral oblique (MLO) and craniocaudad (CC) views of both breasts were obtained. CAD: Full Field Digital Mammography with Computer Added Detection was performed. COMPARISON: No comparison mammograms available at this time. If any prior films become available, an addendum to this report can be generated. FINDINGS: Breast Composition: There are scattered areas of fibroglandular density. There are no dominant masses or suspicious calcifications. There are small benign appearing bilateral axillary lymph nodes. No other significant abnormalities are identified. BI/SCRN MAMM (CAD)W/SHAWNEE BILAT IMPRESSION: Negative screening mammogram. Yearly followup mammogram recommended. (A) ASSESSMENT CATEGORY: BIRADS Category 2: Benign. A letter regarding these results will be sent to the patient by the facility within 30 days. Approximately 10% of breast cancers are not detected by mammography. A normal mammogram should not delay biopsy of a clinically suspicious abnormality. [id number] Electronically Signed: Manoj Moraes MD at 15:13 EST , Service support ,
--- NOTE | 2021-03-21 12:58 | US_ITS ---
STUDY: ULTRASOUND OF THE FEMALE PELVIS - COMPLETE REASON FOR EXAM: Female, 70 years old. Right pelvic pain LMP: The patient is postmenopausal. TECHNIQUE: Transabdominal and Transvaginal TECHNICAL QUALITY: Adequate. COMPARISON: None. FINDINGS: The uterus is anteverted and is in a midline position. The uterus measures 5.2 cm x 4.2 cm x 2.9 cm. There is a Nabothian cyst of the cervix. The endometrium is slightly thickened and measures 2.8 mm in thickness, and is hyperechoic. There is no demonstrated endometrial mass. There is no demonstrated myometrial mass. I.U.D. - The patient does not have an I.U.D. The right ovary is non-visualized. The left ovary is visualized. The left ovary measures 2.7 cm x 2 cm x 1.6 cm. There is a 1 cm x 1 cm x 1 cm follicle in the left ovary. There is no visualized left adnexal mass or complex lesion. There is normal arterial and normal venous vascularity. There is no fluid in the cul-de-sac. The pre void volume of the bladder was 461 ml. US/Pelvic (Non ) IMPRESSION: Slightly thickened endometrium. 1 cm x 1 cm x 1 cm left ovarian follicle. Electronically Signed: Manoj Moraes MD at 15:39 EST , Service support ,
== END ==
PROVIDERS: PCP Family Medicine; Referring Provider Nurse Practitioner Women's Health; Visit Provider Nurse Practitioner Women's Health
DX: Z12.31 Encounter for screening mammogram for malignant neoplasm of breast (principal); R10.2 Pelvic and perineal pain
CPT/HCPCS: 76830; 76856; 77063; 77067

== ENCOUNTER 2021-07-30 12:36 | Observation (INO) | payer MEDICARE, SELFPAY ==
[2021-07-30 12:37] VITALS: BP 158/87; PULSE 71; RESP 18; TEMP 37.2; O2SAT 94; BMI 38.2
--- NOTE | 2021-07-30 12:58 | US_ITS ---
STUDY: ABDOMINAL ULTRASOUND - RIGHT UPPER QUADRANT REASON FOR VISIT: Female, 70 years old. Pain TECHNIQUE: Ultrasound evaluation of the right upper quadrant was performed with real-time and static greenberg-scale imaging. TECHNICAL QUALITY: Adequate. COMPARISON: [address] FINDINGS: Liver: The liver measures 14.4 cm. There is increased echogenicity of the liver. The bile ducts are within normal limits. There is hepatic color flow. The direction of portal flow is hepatopetal. There is no demonstrated mass lesion. There is a 1.5 cm left hepatic lobe cyst. Gallbladder: Normal distended gallbladder. The gallbladder wall measures 3 mm. There is a negative sonographic Diehl''s sign. There is no pericholecystic fluid. There are multiple gallstones Common Bile Duct (C.B.D.): The common bile duct measures 7 mm. Pancreas: Normal size of the head, body and tail of the pancreas. There is normal echogenicity of the pancreas. There is no demonstrated pancreatic mass or cyst. Right Kidney: Normal size of the right kidney. The right kidney measures 11.4 x 5.1 x 5.1 cm. Normal renal cortex. The right cortex measures 1.8 cm. There is no demonstrated renal mass or cyst. There is no right hydronephrosis. US/Gallbladder IMPRESSION: Hepatic steatosis. Cholecystolithiasis without cholecystitis. Electronically Signed: Guillermo Ron MD at 14:29 EDT ,
--- NOTE | 2021-07-30 12:58 | EKG12_ITS ---
Test Reason : ABDOMINAL PAIN Blood Pressure : / mmHG Vent. Rate : 068 BPM Atrial Rate : 068 BPM P-R Int : 180 ms QRS Dur : 094 ms QT Int : 406 ms P-R-T Axes : 069 022 063 degrees QTc Int : 431 ms Normal sinus rhythm Normal ECG Confirmed by IDALIA HECK, JUDITH ([id number]), brands editor ESME MOTLEY ([id number]) on 08/01/2021 7:24:00 AM Referred By: JERICA Confirmed By:JUDITH FRIEDMAN MD
--- NOTE | 2021-07-30 12:59 | EX.ED.DYSGE1 ---
HPI History of Present Illness Chief Complaint: Abd Pain Informant: patient and spouse/S.O. Narrative Narrative: Patient presents with abdominal pain that woke her up at 3 AM this morning. She tried tramadol which she takes for arthritis and this did not help. She tried Maalox and Tums. Most of the pain is in the right upper quadrant. However it seems to spread over the entire torso at times. She has a history of gallbladder problems but is never had cholecystectomy. For dinner last night she had a [employer] mora cheese hamburger along with [place] fries. Nothing so far is made the pain better or worse. She has no history of any intra-abdominal surgery other than tubal ligation. [facility] Medical History (Updated 07/30/21 @ 14:[address] Freedom Navarro MD) Diabetes Hemorrhoids Knee pain Thyroid disease unexplained bruising Home Medications atorvastatin 10 mg tablet 10 mg PO DAILY 03/12/21 [History Last Taken Unknown] clobetasol 0.05 % topical cream 1 applic TOPICAL .COMPLEX #30 g 03/12/21 [Rx Last Taken Unknown] levothyroxine 150 mcg tablet 150 mcg PO DAILY 30 Days #30 tab 03/12/21 [History Last Taken Unknown] multivitamin 1 tab PO DAILY 03/12/21 [History Last Taken Unknown] nirvia PO 03/12/21 [History Last Taken Unknown] omega-3 fatty acids 1,000 mg capsule 1,000 mg PO DAILY 03/12/21 [History Last Taken Unknown] Allergy/AdvReac Type Severity Reaction Status Date / Time No Known Allergies Allergy Verified 07/30/21 12:38 Family History Other Colon cancer Heart disease Social History household members: spouse current occupational status: retired Smoking Status: Former smoker alcohol intake: current alcohol intake frequency: holidays/special occasions only substance use type: does not use what type of physical activity do you participate in: none seatbelt use: always do you feel safe at home: Yes additional social history: - Noel GUPTA ED Constitutional Constitutional ED: Denies chills or fever(s) ENT ENT ED: Denies rhinorrhea Cardiovascular Cardiovascular: Reports other Details: Pain has referred up into the chest but not the main source of pain and it is not there now. ; Denies chest pain or palpitations Respiratory/Chest Respiratory/Chest: Denies cough or dyspnea Gastrointestinal Gastrointestinal: Reports abdominal pain, nausea and vomiting; Denies constipation, diarrhea or melena Genitourinary Genitourinary ED: Denies dysuria or hematuria Musculoskeletal Musculoskeletal: Denies back pain or myalgias Integumentary Denies rash Neurologic Neurologic: Denies headache(s) Psychiatric Psychiatric: Denies anxiety or depression Endocrine Endocrinology: Denies polydipsia or polyuria Allergic/Immunologic Allergic/Immunologic ED: Denies urticaria EXAM Physical Exam Const Vital Signs: 07/30/21 12:37 Temperature 98.9 F Temperature Source Temporal Pulse Rate 71 Respiratory Rate 18 Blood Pressure 158/87 H Blood Pressure Mean 110 Pulse Ox 94 Oxygen Delivery Method Room Air Positive well nourished, well developed and obese Constitutional Narrative: Patient does look mildly uncomfortable General Appearance ED: well developed; Negative for cyanotic or diaphoretic Nutritional Appearance: obese HEENT Reports moist mucous membranes Negative for trauma Eyes General Eye ED: Negative for pale conjunctiva or scleral icterus Neck no JVD Chest Wall inspection of chest normal Resp normal respiratory effort and clear to auscultation bilaterally Effort and Inspection: Negative for pain with movement Auscultation: Negative for rales, rhonchi or wheezes Cardio regular rate and regular rhythm GI normal to inspection, nondistended, normoactive bowel sounds GI Narrative: Patient has mostly right upper quadrant tenderness without rebound or guarding. She has a mildly positive Diehl sign. Mild epigastric tenderness. Rest of her abdomen is relatively benign. Auscultation: normoactive bowel sounds Palpation: soft Back/Spine no CVA tenderness Extremity normal to inspection Neuro oriented x3 Sensorium / Orientation: alert MDM MDM MDM Narrative Medical decision making narrative: Patient CBC is overall normal. Electrolytes are normal. However, her LFTs are all elevated. Lipase is normal. I did do troponin because this had radiated up toward her chest. But her troponin after well over 8 hours of symptoms is still negative. I do not think this is heart disease. Her ultrasound showed multiple gallstones but no pericholecystic fluid or ultrasonic Diehl's. Common bile duct was upper limit of normal at 7 mm for her age. I rechecked the patient. She had gotten good relief from pain meds but the pain is starting to come back and she is uncomfortable again. She still has tenderness in that area although it is less. I will redose her pain meds. I did discuss the case with surgery, Dr. Quevedo. He is going to come down to evaluate the patient in the ED. Lab Data Attestation: I reviewed the patient's lab results. Labs: Laboratory Results - last 24 hr 07/30/21 07/30/21 13:00 13:00 WBC 6.6 RBC 5.01 Hgb 15.3 H Hct 44.8 MCV 89.4 MCH 30.5 MCHC 34.2 RDW Std Deviation 42.3 RDW Coeff of Rona 12.9 Plt Count 316 MPV 10.8 Immature Gran % (Auto) 0.300 Neut % (Auto) 72.4 H Lymph % (Auto) 18.4 L Drew % (Auto) 7.5 Eos % (Auto) 0.8 Baso % (Auto) 0.6 Absolute Neuts (auto) 4.8 Absolute Lymphs (auto) 1.22 Nucleated RBC % 0 Sodium 137 Potassium 3.9 Chloride 101 Carbon Dioxide 31.0 Anion Gap 5 BUN 15 Creatinine 0.68 Estim Creat Clear Calc 46.43 Est GFR (MDRD) Af Amer 109 Est GFR (MDRD) Non-Af 90 BUN/Creatinine Ratio 21.9 H Glucose 133 H Calcium 10.4 H Total Bilirubin 2.20 H AST 518 H ALT 415 H Alkaline Phosphatase 141 H Troponin I High Sens < 3 L Total Protein 8.0 Albumin 3.5 Globulin 4.5 H Albumin/Globulin Ratio 0.8 L Lipase 68 L Radiography Diagnostic Testing: Clinical Impression(s) from Imaging Studies Gallbladder Ultrasound 07/30/21 12:58 IMPRESSION: Hepatic steatosis. Cholecystolithiasis without cholecystitis. Electronically Signed: Guillermo Ron MD at 14:29 EDT , EKG Initial EKG: Comments: EKG done for upper abdominal pain in a 70-year-old female. EKG read by me shows normal sinus rhythm with overall rate of 68. No ventricular ectopy. No acute ST elevation or depression. TN interval, QRS duration and QTc normal. Discharge Plan Triage Chief Complaint: Abd Pain ED Provider: Freedom Navarro Dx/Rx/DC Orders Clinical Impression: Cholelithiasis, Biliary colic Prescriptions: No Action levothyroxine 150 mcg tablet 150 mcg PO DAILY 30 Days Qty: 30 RF: 0 atorvastatin 10 mg tablet 10 mg PO DAILY RF: 0 multivitamin Tablet 1 tab PO DAILY RF: 0 omega-3 fatty acids 1,000 mg capsule 1,000 mg PO DAILY RF: 0 nirvia PO RF: 0 clobetasol 0.05 % cream 1 applic TOPICAL .COMPLEX Qty: 30 RF: 2 Primary Care Provider: Negrito Méndez Referrals: Negrito Méndez MD [Primary Care Provider] -
[2021-07-30] MEDS: Morphine 4 MG/ML Syringe IV ×2 (13:10→14:53)
[2021-07-30] MEDS: Ondansetron 4 MG/2 ML Vial IV ×2 (13:10→18:35)
[2021-07-30 13:30] LABS: Absolute Lymphocyte Count 1.22 X10^3/uL (0.83-4.51); Absolute Neutrophil Count 4.8 X10^3/uL (2.0-7.7); Basophil# 0.04 X10^3/uL; Basophil% 0.6 % (0-1); Eosinophil# 0.05 X10^3/uL; Eosinophils% 0.8 % (0-5); Hematocrit 44.8 % (37-47); Hemoglobin 15.3 g/dL (12.0-15.0); Lymphocyte # 1.22 X10^3/ul (0.83-4.51); Lymphocyte % 18.4 % (19-41); Mean Corp Hgb Conc 34.2 g/dL (32-36); Mean Corpuscular Hgb 30.5 pg (27.0-32.0); Mean Corpuscular Volume 89.4 fL (81-99); Mean Platelet Vol. 10.8 fl (6.2-12.0); Monocyte% 7.5 % (0-10); NRBC Flagged by Analyzer 0 % (0-5); Neutrophil % 72.4 % (47-70); Platelet Count 316 K/mm3 (150-450); RBC Distribution Width CV 12.9 % (11.6-14.6); RBC Distribution Width SD 42.3 fl (35.1-43.9); Red Blood Count 5.01 M/mm3 (4.2-5.4); White Blood Count 6.6 K/mm3 (4.4-11.0)
[2021-07-30 13:57] LABS: ALB/GLOB Ratio 0.8 RATIO (0.9-2.4); AST(SGOT) 518 U/L (15-37); Alanine Aminotransfer ALT/SGPT 415 U/L (13-56); Albumin, Serum 3.5 g/dL (3.2-5.0); Alkaline Phosphatase 141 U/L (45-117); Anion Gap 5 (5-15); BUN 15 mg/dL (7-18); BUN/Creat Ratio 21.9 RATIO (10-20); Calcium,Total 10.4 mg/dL (8.5-10.1); Chloride 101 mmol/L (98-107); Creatinine, Serum 0.68 mg/dL (0.55-1.02); EST Glomerular Filtration Rate 90 mL/min (>60); Est Glom Filt Rate - Afr Amer 109 mL/min (>60); Estimated Creatinine Clearance 46.43 ml/min; Globulin 4.5 g/dL (2.2-4.2); Glucose 133 mg/dL (74-106); Lipase 68 U/L (73-393); Potassium 3.9 mmol/L (3.5-5.1); Sodium Level 137 mmol/L (136-145); Troponin-I HS < 3 pg/mL (3.0-54.0)
[2021-07-30 15:05] VITALS: BP 175/87; PULSE 69; RESP 18; O2SAT 94
--- NOTE | 2021-07-30 16:42 | HP.PCM_ITS ---
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 Patient states that she was woken out of sleep with pain that began in her shoulders and upper chest but then moved to the right upper quadrant of her abdomen. This pain became associated with nausea and vomiting. Given this constellation, patient was concerned for food poisoning initially. She states that last evening she had a mora cheesenator from [employer] and thought this may be causing her upset stomach. She tried to control her symptoms unsuccessfully with Tums, Mylanta, and tramadol (prescribed for a chronic back pain issue). Patient's then awoke around 7 AM and heard his 's complaints and recommended they proceed to the ER for evaluation given this could be her gallbladder. Patient notes that this is not the first time she has had gallbladder problems as she was told approximately 3 to 5 years ago that she may have gallstones. Her ER work-up is notable for a CBC that demonstrates normal white blood count, but there is evidence of a left shift. Patient's comprehensive metabolic panel demonstrated transaminitis and hyperbilirubinemia. Right upper quadrant ultra sound was ordered on hearing patient's history and noting these lab abnormalities, but was read as relatively unremarkable. Gallbladder wall is of normal thickness, the common bile duct was measured at 7 mm. There is no pericholecystic fluid noted. There is no sonographic Diehl sign appreciated. Patient states that she normally enjoys rather good health, but was just recently overcoming cold?like symptoms which she believed came from spending time outside watching her grandchildren's sporting events. She admits to being told she has long haulers from a COVID infection in the fall 2019. In the room, her oxygen saturation alarms repeatedly. [facility] Medical History (Updated 07/30/21 @ 16:[address] Doug Quevedo MD) Diabetes Hemorrhoids Knee pain Thyroid disease unexplained bruising Home Medications atorvastatin 10 mg tablet 10 mg PO DAILY 03/12/21 [History Last Taken Unknown] clobetasol 0.05 % topical cream 1 applic TOPICAL .COMPLEX #30 g 03/12/21 [Rx Last Taken Unknown] levothyroxine 150 mcg tablet 150 mcg PO DAILY 30 Days #30 tab 03/12/21 [History Last Taken Unknown] multivitamin 1 tab PO DAILY 03/12/21 [History Last Taken Unknown] nirvia PO 03/12/21 [History Last Taken Unknown] omega-3 fatty acids 1,000 mg capsule 1,000 mg PO DAILY 03/12/21 [History Last Taken Unknown] Allergy/AdvReac Type Severity Reaction Status Date / Time No Known Allergies Allergy Verified 07/30/21 12:38 Family History Other Colon cancer Heart disease Social History household members: spouse current occupational status: retired Smoking Status: Former smoker alcohol intake: current alcohol intake frequency: holidays/special occasions only substance use type: does not use what type of physical activity do you participate in: none seatbelt use: always do you feel safe at home: Yes additional social history: - Noel Vital Signs Vital Signs Vital Signs: 07/30/21 12:37 07/30/21 15:05 Temperature 98.9 F Temperature Source Temporal Pulse Rate 71 69 Respiratory Rate 18 18 Blood Pressure 158/87 H 175/87 H Blood Pressure Mean 110 116 Pulse Ox 94 94 Oxygen Delivery Method Room Air Room Air Weight Weight: 230 lb Body Mass Index (BMI) 38.2 Physical Exam Const alert and oriented x3 Constitutional Narrative: Mild distress from abdomen and back discomfort General Appearance: cooperative Eyes Eyes Narrative: No scleral icterus Resp normal respiratory effort GI GI Narrative: Obese, nondistended, soft. Tender to palpation across the epigastrium and right upper quadrant. Mildly positive Diehl sign Results Lab / Micro Data Result Diagrams: 07/30/21 13:00 07/30/21 13:00 Labs: Laboratory Results - last 24 hr 07/30/21 13:00: WBC 6.6, RBC 5.01, Hgb 15.3 H, Hct 44.8, MCV 89.4, MCH 30.5, MCHC 34.2, RDW Std Deviation 42.3, RDW Coeff of Rona 12.9, Plt Count 316, MPV 10.8, Immature Gran % (Auto) 0.300, Neut % (Auto) 72.4 H, Lymph % (Auto) 18.4 L, Dundy % (Auto) 7.5, Eos % (Auto) 0.8, Baso % (Auto) 0.6, Absolute Neuts (auto) 4 .8, Absolute Lymphs (auto) 1.22, Nucleated RBC % 0 07/30/21 13:00: Sodium 137, Potassium 3.9, Chloride 101, Carbon Dioxide 31.0, Anion Gap 5, BUN 15, Creatinine 0.68, Estim Creat Clear Calc 46.43, Est GFR (MDRD) Af Amer 109, Est GFR (MDRD) Non-Af 90, BUN/Creatinine Ratio 21.9 H, Glucose 133 H, Calcium 10.4 H, Total Bilirubin 2.20 H, AST 518 H, ALT 415 H, Alkaline Phosphatase 141 H, Troponin I High Sens < 3 L, Total Protein 8.0, Albumin 3.5, Globulin 4.5 H, Albumin/Globulin Ratio 0.8 L, Lipase 68 L Radiology Impression Gallbladder Ultrasound 07/30/21 12:58 IMPRESSION: Hepatic steatosis. Cholecystolithiasis without cholecystitis. Electronically Signed: Guillermo Ron MD at 14:29 EDT , Assessment & Plan Assessment/Plan (1) Cholelithiasis: PLAN: This is a 70-year-old female who presents with acute onset right upper quadrant pain that is associated with nausea and vomiting. Signs and symptoms are concerning for possible early cholecystitis with possible choledocholithiasis (given elevated LFTs). Patient's discomfort is improved but not remitted with the use of IV pain medications. Given her discomfort and the possibility of an obstructing biliary stone, I recommend admission and laparoscopic cholecystectomy with intraoperative cholangiogram. Patient and her agree with this recommendation and the remaining questions around the operation as well as postoperative expectations were discussed in detail include schematic drawings. Patient has no antibiotic allergies I have requested initi ation of Zosyn monotherapy while patient is in the ER. We will plan to make her n.p.o. at midnight in anticipation of surgery tomorrow. Additionally, patient is mildly hypoxic and hypertensive in the room and has a history of diabetes?for these issues, I have requested hospitalist consultation (2) Abnormal LFTs: Charges/Coding Visit Charges Inpatient E&M: 02927 Init Hosp L2
--- NOTE | 2021-07-30 16:47 | NURSING ---
MED SURG WHITE CHOLECYSTITIS
[2021-07-30 16:48] VITALS: BP 163/78; PULSE 71; RESP 18; TEMP 36.5; O2SAT 93
--- NOTE | 2021-07-30 16:52 | NURSING ---
DR CHEEMA FOR DR LONG
--- NOTE | 2021-07-30 17:03 | PCM.CONS.GEN ---
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 She rates pain 8 out of 10 in severity, worse with any movement or palpation of the region. #1. Cholelithiasis with elevated LFTs, bilirubin with possible choledocholithiasis: Patient is being admitted to medical surgical floor per general surgery, diet per surgery discretion especially given acute presentation, plan repeat CBC, CMP in a.m., noted intention per ER discussions for continuation of Zosyn therapy, continue judicious fluids, PPI/famotidine per surgery discretion given plan transition n.p.o. status, as needed pain regimen. #2. Diet-Controlled Diabetes mellitus type II: Not on regimen, notes its been sometime since an A1c, will obtain hemoglobin A1c be cautious, n.p.o. per surgery discretion given acute presentation as noted, will maintain on every 6 hours accu checks w/ ISS. #3. Hypertension: Noted history however patient not on regimen, potentially improved with weight loss and lifestyle changes especially given patient is a diet-controlled diabetic, will monitor and if oral regimen is appropriate we will add, as needed IV hydralazine in interim. #4. Hyperlipidemia: Not on statin therapy current regimen however she has been prescribed this in the past. #5. Hypothyroidism: Continue home synthroid regimen. #6. Obesity: Weight loss and lifestyle changes encouraged. #7. History COVID-19 illness with long hauler syndrome: Patient with history of COVID with long-haul her symptoms, following outpatient with pulmonary medicine, mild hypoxia with oxygenation 93-94 upon ED presentation. #8. Former tobacco use: Encourage continued tobacco cessation. #9. DVT prophylaxis: SCDs, defer chemoprophylaxis to general surgery given planned OR. HPI Consult Data Date of Consult: 07/30/21 HPI Narrative Reason for Consultation: Medical management. 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 She rates pain 8 out of 10 in severity, worse with any movement or palpation of the region. She notes that the discomfort is more dull aching and throbbing and describes it sometimes as a burning. Work-up in the ED included T98.9, heart rate 71, BP 115/87, respiratory rate 18, 94% on room air, CBC with WC 6.6, hemoglobin 15.3, platelets 316 without marked shift, CMP with glucose 133, total bilirubin 2.20, AST/ALT 518/415, alk phos 141, troponin less than 3, lipase 68, gallbladder ultrasound with hepatic steatosis and cholecystolithiasis with a negative sonographic Diehl sign and no pericholecystic fluid with multiple stones evident. ED physician discussed case with Dr. Quevedo, general surgeon who admitted patient with initiation of IV Zosyn therapy to be cautious and planned cholecystectomy 07/31/2021. General surgery requested medical consultation. [facility] Medical History (Updated 07/30/21 @ 17:[address] Shama Bajwa MD) Diet-controlled type 2 diabetes mellitus Former tobacco use HLD (hyperlipidemia) HTN (hypertension) Hypothyroidism Lichen sclerosus et atrophicus of the vulva Obesity Home Medications levothyroxine 150 mcg tablet 150 mcg PO DAILY 30 Days #30 tab 03/12/21 [History Last Taken 07/29/21] omega-3 fatty acids 1,000 mg capsule 2,000 mg PO DAILY 03/12/21 [History Last Taken 07/29/21] Collagen Gummies 4 ea PO/SL DAILY 07/30/21 [History Last Taken 07/29/21] clobetasol 1 applic TOPICAL PRN PRN 07/30/21 [History Last Taken 1 Week Ago ~07/23/21] diclofenac sodium [Voltaren] 1 g TOPICAL DAILY PRN 07/30/21 [History Last Taken 07/28/21] magnesium oxide 400 mg PO QHS 07/30/21 [History Last Taken 07/29/21] multivit with min-folic acid [Multivitamin Gummies] 1 tab PO DAILY 07/30/21 [History Last Taken 07/29/21] nabumetone 500 mg PO BID 07/30/21 [History Last Taken 07/29/21] Allergy/AdvReac Type Severity Reaction Status Date / Time No Known Allergies Allergy Verified 07/30/21 12:38 Family History (Updated 07/30/21 @ 17:[address] Shama Bajwa MD) Father Colon cancer Diagnosed age 76. Mother Heart disease CHF (congestive heart failure) Surgical History (Updated 07/30/21 @ 17:[address] Shama Bajwa MD) History of bilateral tubal ligation S/P endometrial ablation Social History (Updated 07/30/21 @ 17:[address] Shama Bajwa MD) household members: spouse current occupational status: retired Smoking Status: Former smoker how long ago did patient quit smoking: Quit 33 years prior, smoked intermittently since college, ~ 1/2 ppd. alcohol intake: current alcohol intake frequency: holidays/special occasions only substance use type: does not use what type of physical activity do you participate in: none seatbelt use: always do you feel safe at home: Yes additional social history: - Noel GUPTA CANDY Narrative Admission Review of Systems: CONSTITUTIONAL: No weight loss, fever, chills, + weakness or fatigue. HEENT: Eyes: No visual loss, blurred vision, double vision or yellow sclerae. Ears, Nose, Throat: No hearing loss, sneezing, congestion, runny nose or sore throat. SKIN: No rash or itching, lesions, wounds. CARDIOVASCULAR: No chest pain, chest pressure or chest discomfort, palpitations, edema, orthopnea, syncopal events. RESPIRATORY: No shortness of breath, cough or sputum, wheezing, hemoptysis. GASTROINTESTINAL: + Anorexia, nausea, vomiting, abdominal pain, constipation, No diarrhea, melena, BRBPR. GENITOURINARY: + Hx atrophic vaginitis, No dysuria, frequency, urgency or retention. NEUROLOGICAL: No headache, dizziness, syncope, paralysis, ataxia, numbness or tingling in the extremities, focal weakness, change in bowel or bladder control, seizure. MUSCULOSKELETAL: No muscle, back pain, joint pain or stiffness. HEMATOLOGIC: No anemia, bleeding or bruising. LYMPHATICS: No enlarged nodes. No history of splenectomy. PSYCHIATRIC: No history of depression or anxiety. ENDOCRINOLOGIC: No reports of sweating, cold or heat intolerance. No polyuria or polydipsia. ALLERGIES: No history of asthma, hives, eczema or rhinitis. Physical Exam Narrative Physical Examination: General: Awake, alert, oriented x 3 and cooperative, laying in the ED bed, fatigued appearing, notes pain still present RUQ. Skin: Normal color, normal turgor, no icterus, no cyanosis. HEENT: AT/NC, EOMI, PERRLA, moderately dry MM, no carotid bruits or JVD noted. Lungs: Diminished, > bases, distant, moderate effor, no rales, ronchi or wheezing. Heart: Currently regular rate and rhythm; no gallop, rub audible. Abdomen: Soft, obese, RUQ pain with palpation, no marked rebound/guarding noted, no marked distention, distant BS, no obvious HSM however, pain makes exam difficult. Extremities: No cyanosis, clubbing, or edema. Neurological: Patient awake, alert, oriented as noted, cognitive function intact; pupils equally reactive to light and accommodation, cranial nerves II-XII grossly normal, moving all 4 extremities, no focal deficits, strength moderately globally decreased secondary to acute presentation. Psychiatric: Affect appears fatigued, no acute evidence of depressive or anxiety feelings. Lab / Micro Data Result Diagrams: 07/30/21 13:00 07/30/21 13:00 Labs: Laboratory Results - last 24 hr 07/30/21 13:00: WBC 6.6, RBC 5.01, Hgb 15.3 H, Hct 44.8, MCV 89.4, MCH 30.5, MCHC 34.2, RDW Std Deviation 42.3, RDW Coeff of Rona 12.9, Plt Count 316, MPV 10.8, Immature Gran % (Auto) 0.300, Neut % (Auto) 72.4 H, Lymph % (Auto) 18.4 L, [place] % (Auto) 7.5, Eos % (Auto) 0.8, Baso % (Auto) 0.6, Absolute Neuts (auto) 4.8, Absolute Lymphs (auto) 1.22, Nucleated RBC % 0 07/30/21 13:00: Sodium 137, Potassium 3.9, Chloride 101, Carbon Dioxide 31.0, Anion Gap 5, BUN 15, Creatinine 0.68, Estim Creat Clear Calc 46.43, Est GFR (MDRD) Af Amer 109, Est GFR (MDRD) Non-Af 90, BUN/Creatinine Ratio 21.9 H, Glucose 133 H, Calcium 10.4 H, Total Bilirubin 2.20 H, AST 518 H, ALT 415 H, Alkaline Phosphatase 141 H, Troponin I High Sens < 3 L, Total Protein 8.0, Albumin 3.5, Globulin 4.5 H, Albumin/Globulin Ratio 0.8 L, Lipase 68 L Radiology Impression Gallbladder Ultrasound 07/30/21 12:58 IMPRESSION: Hepatic steatosis. Cholecystolithiasis without cholecystitis. Electronically Signed: Guillermo Ron MD at 14:29 EDT , Charges/Coding Visit Charges Office Visits / Consults: [id number] IP Consult L3
[2021-07-30 18:07] VITALS: BMI 38.8
[2021-07-30 18:15] VITALS: BP 144/74; PULSE 62; RESP 18; TEMP 36.6; O2SAT 95
[2021-07-30 18:26] LABS: Bedside Glucose 115 mg/dL (74-106)
[2021-07-30] MEDS: 0.9% Normal Saline 1,000 ML 125 ML IV (18:35)
[2021-07-30] MEDS: HYDROmorphone 0.5 MG/0.5 ML SYRINGE IV (18:37)
[2021-07-30] MEDS: 0.9% Saline Lock 10 ML Syringe IV (18:38)
[2021-07-30 19:09] LABS: Hemoglobin A1c 5.3 % (3.8-5.6)
[2021-07-30 22:02] VITALS: BP 128/66; PULSE 89; RESP 18; TEMP 36.6; O2SAT 93
[2021-07-30 22:10] VITALS: O2SAT 93
[2021-07-31] VITALS (14 sets, daily range): BP systolic 107–146; BP diastolic 63–84; PULSE 65–88; RESP 12–18; TEMP 36.5–37.1; O2SAT 91–99; BMI 38.8
--- NOTE | 2021-07-31 | GALL_PTH ---
PATIENT: ISAURO PLUNKETT LOC: MS3 U#:[id number] AGE/SX: 70/F ROOM: [facility] RE07/30/[address]: Dr. Doug Quevedo MD : 1950 BED: 1 DIS: 08/02/2021 SPEC #: [id number] RECD: 07/31/21 13:58 STATUS: LATONIA HURD #: [id number] RENETTA: 07/31/21 00:[address]: Doug Quevedo DEPT: SURGICAL PATHOLOGY RECD BY: Judson Carbajal ENTERED: 08/01/21 08:35 SP TYPE: MARIO ELIZABETH DR: Dr. Negrito Méndez MD Tissues: Gallbladder, NOS Procedures: Special Stain Group II Surgery Specimen Level III Alcian Blue/PAS (control) HEADER OPERATION: Laparoscopic cholecystectomy with IOC PRE-OP DIAGNOSIS: Cholelithiasis TISSUE SUBMITTED: Gallbladder MICROSCOPIC DIAGNOSIS Gallbladder, cholecystectomy: Chronic cholecystitis and cholelithiasis. Focal reactive epithelial changes and intestinal metaplasia. See comment. /SJ 08/02/21 COMMENT Inflammatory cells infiltrates consist of lymphocytes and numerous eosinophils. Alcian blue/PAS stain with matched control is used in the evaluation of the specimen. MICROSCOPIC DESCRIPTION Slides are reviewed. GROSS DESCRIPTION Received is one container labeled with the patient's name and designated gallbladder. The specimen consists of a gallbladder measuring 8.5 cm in length and up to 4 cm in diameter. The external surface is pink-smith, smooth and glistening for the most part. Focally it is granular, hemorrhagic and contains cautery artifact. The gallbladder contains green-yellow mucoid bile and multiple multifaceted zpefxaxc-sroxyy-jyfxqa stones and stone fragments measuring in aggregate 5.0 x 4.0 x 3.0 cm and 0.1 to 0.3 cm in greatest dimension. The mucosa is bile-stained and without any mass lesions. The gallbladder wall measures up to 0.3 cm in thickness. Manager Clinical Applications sections from the gallbladder and the cystic duct are submitted in one cassette. / ALIYA:FREDDY 08/02/2021 TC:3 CPT: 19615, 85190
[2021-07-31 01:06] LABS: Bedside Glucose 119 mg/dL (74-106)
[2021-07-31 05:40] LABS: Absolute Lymphocyte Count 1.24 X10^3/uL (0.83-4.51); Absolute Neutrophil Count 3.6 X10^3/uL (2.0-7.7); Basophil# 0.04 X10^3/uL; Basophil% 0.7 % (0-1); Eosinophil# 0.12 X10^3/uL; Eosinophils% 2.2 % (0-5); Hemoglobin 12.5 g/dL (12.0-15.0); Lymphocyte # 1.24 X10^3/ul (0.83-4.51); Lymphocyte % 22.3 % (19-41); Mean Corp Hgb Conc 32.9 g/dL (32-36); Mean Corpuscular Hgb 29.9 pg (27.0-32.0); Mean Corpuscular Volume 90.9 fL (81-99); Mean Platelet Vol. 10.5 fl (6.2-12.0); Monocyte# 0.54 X10^3/uL; Monocyte% 9.7 % (0-10); NRBC Flagged by Analyzer 0 % (0-5); Neutrophil % 64.7 % (47-70); Platelet Count 238 K/mm3 (150-450); RBC Distribution Width CV 13.2 % (11.6-14.6); RBC Distribution Width SD 44.2 fl (35.1-43.9); Red Blood Count 4.18 M/mm3 (4.2-5.4); White Blood Count 5.6 K/mm3 (4.4-11.0)
[2021-07-31] MEDS: 0.9% Normal Saline 1,000 ML 125 ML IV ×3 (06:09→22:23)
[2021-07-31 06:41] LABS: Bedside Glucose 111 mg/dL (74-106)
[2021-07-31 06:57] LABS: ALB/GLOB Ratio 0.8 RATIO (0.9-2.4); AST(SGOT) 721 U/L (15-37); Alanine Aminotransfer ALT/SGPT 801 U/L (13-56); Albumin, Serum 2.8 g/dL (3.2-5.0); Alkaline Phosphatase 144 U/L (45-117); Anion Gap 7 (5-15); BUN 11 mg/dL (7-18); BUN/Creat Ratio 17.2 RATIO (10-20); Calcium,Total 8.4 mg/dL (8.5-10.1); Chloride 107 mmol/L (98-107); Creatinine, Serum 0.64 mg/dL (0.55-1.02); EST Glomerular Filtration Rate 97 mL/min (>60); Est Glom Filt Rate - Afr Amer 118 mL/min (>60); Estimated Creatinine Clearance 46.43 ml/min; Globulin 3.3 g/dL (2.2-4.2); Glucose 108 mg/dL (74-106); Potassium 3.8 mmol/L (3.5-5.1); Protein, Total 6.1 g/dL (6.4-8.2); Sodium Level 140 mmol/L (136-145)
[2021-07-31 07:09] LABS: Thyroid Stim Hormone (TSH) 0.28 uIU/mL (0.358-3.74)
--- NOTE | 2021-07-31 07:27 | PN.SURG_ITS ---
Subjective Subjective Patient seen and examined during AM rounds. She is found resting peacefully. She states that her abdominal pain is significantly improved and has not required any pain medication overnight. Objective Data Objective Data Vital Signs: Vital Signs Temp Pulse Resp BP Pulse Ox 98 F 77 18 113/66 92 07/31/21 03:12 07/31/21 03:12 07/31/21 03:12 07/31/21 03:12 07/31/21 03:12 Oxygen Delivery Method Room Air Weight: 233 lb 6.4 oz Body Mass Index (BMI) 38.8 Intake & Output: Intake and Output for Last 24 Hours 07/29/21 07/30/21 07/31/21 23:59 23:59 23:59 Intake Total 100 / 100 1450 / 1450 Output Total 400 / 400 Balance 100 / 100 1050 / 1050 Lab / Micro Data Result Diagrams: 07/31/21 05:17 07/31/21 05:17 Labs: Laboratory Results - last 24 hr 07/30/21 13:00: WBC 6.6, RBC 5.01, Hgb 15.3 H, Hct 44.8, MCV 89.4, MCH 30.5, MCHC 34.2, RDW Std Deviation 42.3, RDW Coeff of Rona 12.9, Plt Count 316, MPV 1 0.8, Immature Gran % (Auto) 0.300, Neut % (Auto) 72.4 H, Lymph % (Auto) 18.4 L, [place] % (Auto) 7.5, Eos % (Auto) 0.8, Baso % (Auto) 0.6, Absolute Neuts (auto) 4.8, Absolute Lymphs (auto) 1.22, Nucleated RBC % 0 07/30/21 13:00: Sodium 137, Potassium 3.9, Chloride 101, Carbon Dioxide 31.0, Anion Gap 5, BUN 15, Creatinine 0.68, Estim Creat Clear Calc 46.43, Est GFR (MDRD) Af Amer 109, Est GFR (MDRD) Non-Af 90, BUN/Creatinine Ratio 21.9 H, Glucose 133 H, Calcium 10.4 H, Total Bilirubin 2.20 H, AST 518 H, ALT 415 H, Alkaline Phosphatase 141 H, Troponin I High Sens < 3 L, Total Protein 8.0, Albumin 3.5, Globulin 4.5 H, Albumin/Globulin Ratio 0.8 L, Lipase 68 L 07/30/21 13:00: Hemoglobin A1c 5.3 07/30/21 18:17: POC Glucose 115 H 07/31/21 00:53: POC Glucose 119 H 07/31/21 05:17: WBC 5.6, RBC 4.18 L, Hgb 12.5, Hct 38.0, MCV 90.9, MCH 29.9, MCHC 32.9, RDW Std Deviation 44.2 H, RDW Coeff of Rona 13.2, Plt Count 238, MPV 10.5, Immature Gran % (Auto) 0.400, Neut % (Auto) 64.7, Lymph % (Auto) 22.3, [place] % (Auto) 9.7, Eos % (Auto) 2.2, Baso % (Auto) 0.7, Absolute Neuts (auto) 3.6, Absolute Lymphs (auto) 1.24, Nucleated RBC % 0 07/31/21 05:17: Sodium 140, Potassium 3.8, Chloride 107, Carbon Dioxide 26.0, Anion Gap 7, BUN 11, Creatinine 0.64, Estim Creat Clear Calc 46.43, Est GFR (MDRD) Af Amer 118, Est GFR (MDRD) Non-Af 97, BUN/Creatinine Ratio 17.2, Glucose 108 H, Calcium 8.4 L, Total Bilirubin 4.10 H, AST 721 H, ALT 801 H, Alkaline Phosphatase 144 H, Total Protein 6.1 L, Albumin 2.8 L, Globulin 3.3, Albumin/Globulin Ratio 0.8 L 07/31/21 05:17: TSH 0.28 L 07/31/21 05:46: POC Glucose 111 H Micro: Microbiology 07/31/21 01:00 Nasal Secretion SARS-CoV-2 Antigen (Rapid) - Final Radiography Diagnostic Testing: Radiology Impression Gallbladder Ultrasound 07/30/21 12:58 IMPRESSION: Hepatic steatosis. Cholecystolithiasis without cholecystitis. Electronically Signed: Guillermo Ron MD at 14:29 EDT , Physical Exam Const oriented x3 and no apparent distress Resp normal respiratory effort GI GI Narrative: Soft, mildly distended, significantly decreased tenderness of the right upper quadrant Assessment & Plan Assessment/Plan (1) Cholelithiasis: QUALIFIERS: Cholelithiasis location: gallbladder and bile duct Cholecystitis presence: without cholecystitis Biliary obstruction: without biliary obstruction Qualified Code(s): K80.70 - Calculus of gallbladder and bile duct without cholecystitis without obstruction PLAN: Patient with significantly improved right upper quadrant abdominal tenderness now hospital day 2 for this complaint as well as laboratory abnormalities demonstrating transaminitis and hyperbilirubinemia. Patient currently n.p.o. on IV antibiotics anticipating laparoscopic cholecystectomy with intraoperative cholangiogram. (2) Abnormal LFTs: PLAN: Total bilirubin and LFTs both further increased today. We will assess biliary drainage via cholangiogram during today's operative procedure. (3) Constipation: PLAN: Patient complains preadmission constipation with no further bowel activity overnight. Administer 1 dose of MiraLAX this a.m.
[2021-07-31] MEDS: Acetaminophen 325 MG Tablet 650 MG PO ×2 (08:21→23:02)
[2021-07-31] MEDS: Polyethylene Glycol 3350 17 GM PACKET PO (08:22)
--- NOTE | 2021-07-31 10:31 | RAD_ITS ---
EXAM: FL CHOLANGIOGRAPHY AND/OR PANCREATOGRAPHY CLINICAL INDICATION: PAIN TECHNIQUE: Fluoroscopic cholangiogram and/or pancreatography of the right upper quadrant. Fluoroscopic guidance was provided by a physician. This report was created using [employer] report Ezetap technology. COMPARISON: None. FINDINGS: GALLBLADDER: Unremarkable. No gallbladder filling defects. BILE DUCTS: Imaging of the biliary tree performed in the OR with contrast injected into the cystic duct remnant. 2. Videofluoroscopy segments are reviewed. No filling defects within the biliary tree. Contrast extends into the duodenum. RAD/Cholangiogram/ O R,Initial IMPRESSION: Normal operative cholangiogram. Electronically Signed: Nikos Gonzalez MD at 12:07 EDT ,
--- NOTE | 2021-07-31 11:43 | PCM.OPRPT ---
Report of Operation Date of Procedure: 07/31/21 Pre-Operative Diagnosis: Cholelithiasis with abnormal LFTs Post-Operative Diagnosis: 1. Cholecystitis with abnormal LFTs 2. Nilson-Jassi Santo syndrome Surgery/Procedure Performed:: Laparoscopic cholecystectomy with intraoperative cholangiogram Description of Surgical Findings:: ? Numerous adhesions between the anterior abdominal wall and the liver capsule ? Adhesions between the gallbladder and the duodenum as well as the omentum at the infundibulum Surgeon: Doug Quevedo hot knife cutter: Richard Benítez Type of Anesthesia: General/Supplemental Anesthesiologist: Lm Lombardi Specimen's removed: Gallbladder Estimated Blood Loss (mL): 50 Description of Procedure: After proper identification in the preoperative holding area the patient was brought to the operating room where she was positioned supine on the operating room table. Preoperatively SCDs were administered (antibiotics were being given continuously since ER admission). General anesthesia was then induced. Patient's abdomen was prepped and draped in usual sterile fashion. A formal timeout was conducted to confirm both patient and the procedure. Procedure was begun with a stab incision at Merino's point in the left upper quadrant. A Veress needle was carefully inserted after ensuring that the area was appropriate water drop, and low flow insufflation was started while anesthesia monitored end-tidal CO2 until peritoneal pressures 12 mmHg. A supraumbilical incision was created and an optical entry was made with direct laparoscopic visualization at this location using a 5 mm trocar. Laparoscopic investigation revealed no inadvertent injury from the Veress needle in the left upper quadrant and the needle was removed. The bottom margin of the right lobe of the liver was identified and a stab incision was made in the right upper quadrant after administration of local. A 5 mm trocar was placed. Laparoscope was transitioned to this point and the 5 mm trocar in the supraumbilical position was swapped out for a 12 mm trocar. Then I proceeded with placement of a second 5 mm trocar in the right upper quadrant and a second 12 mm trocar in the subxiphoid position?both under laparoscopic guidance. The gallbladder was visualized with a mild degree of inflammation, but there were numerous thin adhesions between the anterior abdominal wall and the liver capsule consistent with Nilson-Jassi Santo syndrome. A number of these adhesions were sharply lysed to facilitate gallbladder retraction. The gallbladder fundus was then grasped and elevated cephalad. Then, using careful dissection, the duodenum was bluntly swept away and the the peritoneum was opened so that the structures of the hepatocystic triangle were delineated. Once the critical view of safety was obtained, A cholangiocatheter was fed into the proximal segment of the cystic duct and clipped into place. A cholangiogram was then obtained showing a standard length cystic duct flowing into a common bile duct with unobstructed antegrade flow of contrast into the duodenum. There was also retrograde flow through the common hepatic duct into the right and left hepatic ducts. The cystic duct was triply clipped and sharply divided. The same process was used for the cystic artery. The gallbladder was then removed from the gallbladder fossa with the use of electrocautery. During this process, an inadvertent rent was made in the body of the gallbladder resulting in local spillage of bile and gallstones. This bile was promptly suctioned free of the peritoneum with a suction daily release and dupe printer and the gallstones were retrieved with a laparoscopic grasper. Copious irrigation was then used in this area to dilute contamination. Selective electrocautery was used to obtain hemostasis adjacent to the gallbladder fossa where there had been a thin adhesion to the liver capsule and was now slightly oozing. The gallbladder was placed in an Endo Catch bag and removed from the peritoneum. Morison's pouch was irrigated and the effluent was suctioned free of the peritoneum. Hemostasis was again confirmed. The fascia of the 12 mm port sites was closed in a [id number] fashion using a José-Linda suture passer under laparoscopic guidance. Pneumoperitoneum was evacuated A total of 20 mL of 0.75% bupivacaine local anesthetic was injected at the port sites for postoperative pain control. The skin of each port site was then closed in subcuticular fashion using 4-0 Monocryl. Steri-Strips and bandages were applied as dressings for both the port sites and the Veress needle insufflation site in the left upper quadrant. Patient tolerated the procedure well without any apparent complications. On emergence from their anesthetic the patient was taken to PACU for ongoing recovery. Procedures Digestive [id number]-[id number]: [id number] Laparo cholecystectomy/graph
[2021-07-31 12:10] LABS: Bedside Glucose 139 mg/dL (74-106)
--- NOTE | 2021-07-31 15:22 | PN.HOSP_ITS ---
Subjective Subjective Seen post operatively. Has some pain in RUQ. Tolerated Jello and coffee. No flatus. Objective Data Objective Data Vital Signs: Vital Signs Temp Pulse Resp BP Pulse Ox 36.5 C L 81 12 135/76 H 98 07/31/21 14:08 07/31/21 14:08 07/31/21 14:08 07/31/21 14:08 07/31/21 14:08 Oxygen Flow Rate (L/min) 3 Oxygen Delivery Method Nasal Cannula Weight: 105.868 kg Body Mass Index (BMI) 38.8 Intake & Output: Intake and Output for Last 24 Hours 07/29/21 07/30/21 07/31/21 23:59 23:59 23:59 Intake Total 100 / 100 2500.25 / 2500.25 Output Total 600 / 600 Balance 100 / 100 1900.25 / 1900.25 Lab / Micro Data Result Diagrams: 07/31/21 05:17 07/31/21 05:17 Labs: Laboratory Results - last 24 hr 07/30/21 13:00: Hemoglobin A1c 5.3 07/30/21 18:17: POC Glucose 115 H 07/31/21 00:53: POC Glucose 119 H 07/31/21 05:17: WBC 5.6, RBC 4.18 L, Hgb 12.5, Hct 38.0, MCV 90.9, MCH 29.9, MCHC 32.9, RDW Std Deviation 44.2 H, RDW Coeff of Rona 13.2, Plt Count 238, MPV 10.5, Immature Gran % (Auto) 0.400, Neut % (Auto) 64.7, Lymph % (Auto) 22.3, [place] % (Auto) 9.7, Eos % (Auto) 2.2, Baso % (Auto) 0.7, Absolute Neuts (auto) 3.6, Absolute Lymphs (auto) 1.24, Nucleated RBC % 0 07/31/21 05:17: Sodium 140, Potassium 3.8, Chloride 107, Carbon Dioxide 26.0, Anion Gap 7, BUN 11, Creatinine 0.64, Estim Creat Clear Calc 46.43, Est GFR (MDRD) Af Amer 118, Est GFR (MDRD) Non-Af 97, BUN/Creatinine Ratio 17.2, Glucose 108 H, Calcium 8.4 L, Total Bilirubin 4.10 H, AST 721 H, ALT 801 H, Alkaline Phosphatase 144 H, Total Protein 6.1 L, Albumin 2.8 L, Globulin 3.3, Albumin/Globulin Ratio 0.8 L 07/31/21 05:17: TSH 0.28 L 07/31/21 05:46: POC Glucose 111 H 07/31/21 12:06: POC Glucose 139 H Micro: Microbiology 07/31/21 01:00 Nasal Secretion SARS-CoV-2 Antigen (Rapid) - Final Radiography Diagnostic Testing: Radiology Impression Cholangiogram 07/31/21 10:31 IMPRESSION: Normal operative cholangiogram. Electronically Signed: Nikos Gonzalez MD at 12:07 EDT , Physical Exam Const Constitutional Narrative: groggy. pleasant. non-toxic. HEENT head/scalp atraumatic and moist oral mucous membranes Head and Scalp: normocephalic Resp normal respiratory effort, no retractions, no use of accessory muscles and clear to auscultation bilaterally Cardio regular rate, regular rhythm, S1 normal heart sound and S2 normal heart sound GI GI Narrative: distended. hypoactive BS. Extremity normal to inspection Assessment & Plan Assessment/Plan (1) Cholelithiasis: QUALIFIERS: Cholelithiasis location: gallbladder and bile duct Cholecystitis presence: without cholecystitis Biliary obstruction: without biliary obstruction Qualified Code(s): K80.70 - Calculus of gallbladder and bile duct without cholecystitis without obstruction (2) Abnormal LFTs: (3) Biliary colic: PLAN: 1. acute cholecystitis * s/p lap ana. complicated by numerous adhesions. * mgmt per general surgery * on pip/tazo 2. DM2 * diet-controlled at baseline * on SSI * fair control at this time. 3. HTN * per history * normotensive here 4. VTE prophylaxis: SCDs DW patient's family at bedside. Charges/Coding Visit Charges Inpatient E&M: 17356 Subs Hosp L2
--- NOTE | 2021-07-31 15:30 | CASEMGMT ---
SHAHEED MARY Assessment: Face to Face with pt for initial transition planning/care coordination assessment. SHAHEED MARY introduced self and role at [facility], pt voices understanding and consents to assessment. Pt is A/O x4 and answers all questions appropriately at this time. Pt lying in bed with dtr and at bedside. Care providers, pharmacy, and demographics verified/updated. Admitting Dx: cholecystitis with abnormal LFT's PCP:[facility]: benjamin Sheppard Preferred Pharmacy: [facility] if covered by insurance. TC to pharmacy [facility] to verify. She states some plans are taken and some not and she cannot tell until a med is prescribed. Pt would like to try [facility] and if expensive, would like changed to [facility] [place]. Insurance: Prescription Benefit: yes LW/HPOA: Pt has a LW/DPOA and her DPOA is her Noel Wisdom. She is aware that this is not on file at [facility] and she may bring in to be scanned into her chart. LNOK: Noel Wisdom, Living Arrangements: Pt lives with in a single story house with a ramp to enter. Pt reports she is I in ADL's and denies concerns at home. Transportation: Pt drives self and denies concerns with transportation. DME/HHC/SNF: Pt mother lived with her and pt has acquired the following DME- cane, FWW, and w/c. Pt denies use of AD. Pt denies hx of HHC or SNF stays. Pt states no concerns with going home at time of dc. Pt dtr will be staying with her for a few days. Pt states no further concerns/needs. CM to follow. Advised pt to ask CM if any further question/concerns/needs arise, voices understanding. Pt Goal: Home Plan: Home
[2021-07-31 16:30] LABS: Bedside Glucose 148 mg/dL (74-106)
[2021-07-31] MEDS: Acetaminophen 500 MG Tablet PO (17:01)
[2021-07-31] MEDS: oxyCODONE 5 MG Tablet PO ×2 (17:01→23:03)
[2021-07-31 23:11] LABS: Bedside Glucose 143 mg/dL (74-106)
[2021-08-01 02:42] VITALS: BP 165/85; PULSE 64; RESP 18; TEMP 36.6; O2SAT 98
[2021-08-01 02:52] VITALS: BP 165/85; PULSE 64
[2021-08-01] MEDS: hydrALAZINE 20 MG/ML Vial 10 MG IV (02:52)
[2021-08-01] MEDS: Acetaminophen 325 MG Tablet 650 MG PO ×2 (03:02→21:38)
[2021-08-01 05:15] LABS: Absolute Lymphocyte Count 1.27 X10^3/uL (0.83-4.51); Absolute Neutrophil Count 6.9 X10^3/uL (2.0-7.7); Basophil# 0.02 X10^3/uL; Basophil% 0.2 % (0-1); Hemoglobin 12.9 g/dL (12.0-15.0); Lymphocyte # 1.27 X10^3/ul (0.83-4.51); Mean Corp Hgb Conc 32.3 g/dL (32-36); Mean Corpuscular Hgb 29.7 pg (27.0-32.0); Mean Corpuscular Volume 92.2 fL (81-99); Mean Platelet Vol. 10.6 fl (6.2-12.0); Monocyte# 0.78 X10^3/uL; Monocyte% 8.6 % (0-10); NRBC Flagged by Analyzer 0 % (0-5); Neutrophil # 6.93 X10^3/uL (2.7-7.7); Neutrophil % 76.5 % (47-70); Platelet Count 244 K/mm3 (150-450); RBC Distribution Width SD 45.1 fl (35.1-43.9); Red Blood Count 4.34 M/mm3 (4.2-5.4); White Blood Count 9.1 K/mm3 (4.4-11.0)
[2021-08-01] MEDS: 0.9% Normal Saline 1,000 ML 125 ML IV ×3 (06:21→21:37)
[2021-08-01] MEDS: oxyCODONE 5 MG Tablet PO ×2 (06:24→13:47)
[2021-08-01 06:26] LABS: ALB/GLOB Ratio 0.8 RATIO (0.9-2.4); AST(SGOT) 633 U/L (15-37); Alanine Aminotransfer ALT/SGPT 991 U/L (13-56); Alkaline Phosphatase 188 U/L (45-117); Anion Gap 3 (5-15); BUN 9 mg/dL (7-18); BUN/Creat Ratio 12.8 RATIO (10-20); Calcium,Total 8.4 mg/dL (8.5-10.1); Chloride 107 mmol/L (98-107); EST Glomerular Filtration Rate 87 mL/min (>60); Est Glom Filt Rate - Afr Amer 105 mL/min (>60); Estimated Creatinine Clearance 46.43 ml/min; Globulin 3.7 g/dL (2.2-4.2); Glucose 122 mg/dL (74-106); Potassium 3.8 mmol/L (3.5-5.1); Protein, Total 6.7 g/dL (6.4-8.2); Sodium Level 138 mmol/L (136-145)
[2021-08-01 06:26] LABS: Bedside Glucose 115 mg/dL (74-106)
--- NOTE | 2021-08-01 08:38 | PN.SURG_ITS ---
Subjective Subjective Patient seen and examined during AM rounds. She states that her abdominal discomfort is improved, however, she remains uncomfortable from her lack of bowel movement. She states that she is burping but not passing gas at this point. She is drinking plenty of fluids and walking the halls. Objective Data Objective Data Vital Signs: Vital Signs Temp Pulse Resp BP Pulse Ox 97.8 F 64 18 165/85 H 98 08/01/21 02:42 08/01/21 02:52 08/01/21 02:42 08/01/21 02:52 08/01/21 02:42 Oxygen Flow Rate (L/min) 2 Oxygen Delivery Method Nasal Cannula Weight: 233 lb 6.4 oz Body Mass Index (BMI) 38.8 Intake & Output: Intake and Output for Last 24 Hours 07/30/21 07/31/21 08/01/21 23:59 23:59 23:59 Intake Total 100 / 100 3550.25 / 3550.25 2009.33 / 2009.33 Output Total 600 / 600 300 / 300 Balance 100 / 100 2950.25 / 2950.25 1710.33 / 1710.33 Lab / Micro Data Result Diagrams: 08/01/21 04:52 08/01/21 04:52 Labs: Laboratory Results - last 24 hr 07/31/21 12:06: POC Glucose 139 H 07/31/21 16:15: POC Glucose 148 H 07/31/21 23:07: POC Glucose 143 H 08/01/21 04:52: WBC 9.1, RBC 4.34, Hgb 12.9, Hct 40.0, MCV 92.2, MCH 29.7, MCHC 32.3, RDW Std Deviation 45.1 H, RDW Coeff of Rona 13.0, Plt Count 244, MPV 10.6, Immature Gran % (Auto) 0.700, Neut % (Auto) 76.5 H, Lymph % (Auto) 14.0 L, [place] % (Auto) 8.6, Eos % (Auto) 0.0, Baso % (Auto) 0.2, Absolute Neuts (auto) 6.9, Absolute Lymphs (auto) 1.27, Nucleated RBC % 0 08/01/21 04:52: Sodium 138, Potassium 3.8, Chloride 107, Carbon Dioxide 28.0, Anion Gap 3 L, BUN 9, Creatinine 0.70, Estim Creat Clear Calc 46.43, Est GFR (MDRD) Af Amer 105, Est GFR (MDRD) Non-Af 87, BUN/Creatinine Ratio 12.8, Glucose 122 H, Calcium 8.4 L, Total Bilirubin 2.60 H, AST 633 H, ALT 991 H, Alkaline [place] sphatase 188 H, Total Protein 6.7, Albumin 3.0 L, Globulin 3.7, Albumin/Globulin Ratio 0.8 L 08/01/21 06:20: POC Glucose 115 H Micro: Microbiology 07/31/21 01:00 Nasal Secretion SARS-CoV-2 Antigen (Rapid) - Final Radiography Diagnostic Testing: Radiology Impression Cholangiogram 07/31/21 10:31 IMPRESSION: Normal operative cholangiogram. Electronically Signed: Nikos Gonzalez MD at 12:07 EDT , Physical Exam Const Constitutional Narrative: Mild distress from her abdominal discomfort Resp normal respiratory effort GI GI Narrative: Mildly distended, surgical dressings intact to right upper quadrant are clean and dry. Appropriately tender to palpation about port sites particularly just lateral to her subxiphoid port site. Assessment & Plan Assessment/Plan (1) Constipation: PLAN: Patient with persistent constipation postoperative day 1. Given the concurrent use of narcotics we will plan to administer a dose of lactulose after providing MiraLAX yesterday without relief. Patient encouraged to continue walking today. (2) Abnormal LFTs: PLAN: Patient with improved T bili and AST today. ALT and alk phos are modestly increased. Cholangiogram yesterday failed to demonstrate any filling defects of the common bile duct. Suspect that there was spontaneous passage of a gallstone. We will plan to obtain outpatient comprehensive metabolic panel to trend these labs. (3) S/P laparoscopic cholecystectomy: PLAN: Postoperative day 1. Patient with some expected right upper quadrant discomfort. Given her discomfort from not having a bowel movement, will try to manage her constipation aggressively this morning. However, a bowel movement is not a precondition for discharge. Charges/Coding Visit Charges Inpatient E&M: 00190 Subs Hosp L2
[2021-08-01] MEDS: Lactulose 20 GM/30 ML UDC PO (08:44)
--- NOTE | 2021-08-01 10:28 | PN.HOSP_ITS ---
Subjective Subjective Feels slightly better. Abdomen is distended. Objective Data Objective Data Vital Signs: Vital Signs Temp Pulse Resp BP Pulse Ox 36.6 C 64 18 165/85 H 98 08/01/21 02:42 08/01/21 02:52 08/01/21 02:42 08/01/21 02:52 08/01/21 02:42 Oxygen Flow Rate (L/min) 2 Oxygen Delivery Method Nasal Cannula Weight: 105.868 kg Body Mass Index (BMI) 38.8 Intake & Output: Intake and Output for Last 24 Hours 07/30/21 07/31/21 08/01/21 23:59 23:59 23:59 Intake Total 100 / 100 3550.25 / 3550.25 2060.33 / 2060.33 Output Total 600 / 600 300 / 300 Balance 100 / 100 2950.25 / 2950.25 1760.33 / 1760.33 Lab / Micro Data Result Diagrams: 08/01/21 04:52 08/01/21 04:52 Labs: Laboratory Results - last 24 hr 07/31/21 12:06: POC Glucose 139 H 07/31/21 16:15: POC Glucose 148 H 07/31/21 23:07: POC Glucose 143 H 08/01/21 04:52: WBC 9.1, RBC 4.34, Hgb 12.9, Hct 40.0, MCV 92.2, MCH 29.7, MCHC 32.3, RDW Std Deviation 45.1 H, RDW Coeff of Rona 13.0, Plt Count 244, MPV 10.6, Immature Gran % (Auto) 0.700, Neut % (Auto) 76.5 H, Lymph % (Auto) 14.0 L, [place] % (Auto) 8.6, Eos % (Auto) 0.0, Baso % (Auto) 0.2, Absolute Neuts (auto) 6.9, Absolute Lymphs (auto) 1.27, Nucleated RBC % 0 08/01/21 04:52: Sodium 138, Potassium 3.8, Chloride 107, Carbon Dioxide 28.0, Anion Gap 3 L, BUN 9, Creatinine 0.70, Estim Creat Clear Calc 46.43, Est GFR (MDRD) Af Amer 105, Est GFR (MDRD) Non-Af 87, BUN/Creatinine Ratio 12.8, Glucose 122 H, Calcium 8.4 L, Total Bilirubin 2.60 H, AST 633 H, ALT 991 H, Alkaline Phosphatase 188 H, Total Protein 6.7, Albumin 3.0 L, Globulin 3.7, Albumin/Globulin Ratio 0.8 L 08/01/21 06:20: POC Glucose 115 H Micro: Microbiology 07/31/21 01:00 Nasal Secretion SARS-CoV-2 Antigen (Rapid) - Final Radiography Diagnostic Testing: Radiology Impression Cholangiogram 07/31/21 10:31 IMPRESSION: Normal operative cholangiogram. Electronically Signed: Nikos Gonzalez MD at 12:07 EDT , Physical Exam Const alert and no apparent distress HEENT head/scalp atraumatic Head and Scalp: normocephalic Resp normal respiratory effort, no retractions, no use of accessory muscles and clear to auscultation bilaterally Cardio regular rate, regular rhythm, S1 normal heart sound and S2 normal heart sound GI normal to inspection, nondistended, normoactive bowel sounds, soft to palpation, non-tender and non-distended GI Narrative: distended. hypoactive BS. Extremity normal to inspection Neuro Sensorium / Orientation: awake and alert Assessment & Plan Assessment/Plan (1) Cholelithiasis: QUALIFIERS: Cholelithiasis location: gallbladder and bile duct Cholecystitis presence: without cholecystitis Biliary obstruction: without biliary obstruction Qualified Code(s): K80.70 - Calculus of gallbladder and bile duct without cholecystitis without obstruction (2) Abnormal LFTs: (3) Biliary colic: PLAN: 1. acute cholecystitis * s/p lap ana. complicated by numerous adhesions. * mgmt per general surgery * on pip/tazo 2. DM2 * diet-controlled at baseline * on SSI * fair control at this time. 3. HTN * per history * normotensive here 4. VTE prophylaxis: SCDs 5. Ileus * suspected * lactulose given * defer to general surgery Charges/Coding Visit Charges Inpatient E&M: 67289 Subs Hosp L2
[2021-08-01 11:31] LABS: Bedside Glucose 120 mg/dL (74-106)
[2021-08-01] MEDS: Bisacodyl 10 MG Suppository RC (14:11)
[2021-08-01 15:04] VITALS: BP 169/82; PULSE 73; RESP 18; TEMP 36.5; O2SAT 95
[2021-08-01] MEDS: Ondansetron 4 MG/2 ML Vial IV (15:10)
[2021-08-01] MEDS: 0.9% Saline Lock 10 ML Syringe IV ×2 (15:10→21:43)
[2021-08-01] MEDS: HYDROmorphone 0.5 MG/0.5 ML SYRINGE IV (15:10)
[2021-08-01 17:05] LABS: Bedside Glucose 114 mg/dL (74-106)
[2021-08-01 21:34] VITALS: BP 154/88; PULSE 82; RESP 18; TEMP 36.4; O2SAT 96
--- NOTE | 2021-08-01 22:01 | NURSING ---
Patient requests four side rails up when sleeping.
[2021-08-01 23:26] LABS: Bedside Glucose 111 mg/dL (74-106)
[2021-08-01 23:42] LABS: Chlamydia Trachomatis by PCR Negative (Negative); Neisserai gonorrhoeae by PCR Negative (Negative); Probe Check PASS; Sample Adequacy Control PASS; Specimen Processing Control PASS
[2021-08-02] VITALS (10 sets, daily range): BP systolic 135–181; BP diastolic 61–89; PULSE 82–95; RESP 16–18; TEMP 36.3–37.1; O2SAT 93–97
[2021-08-02] MEDS: 0.9% Normal Saline 1,000 ML 125 ML IV (05:17)
[2021-08-02] MEDS: hydrALAZINE 20 MG/ML Vial 10 MG IV (05:23)
[2021-08-02 06:50] LABS: Bedside Glucose 100 mg/dL (74-106)
[2021-08-02 07:30] LABS: ALB/GLOB Ratio 0.8 RATIO (0.9-2.4); AST(SGOT) 647 U/L (15-37); Alanine Aminotransfer ALT/SGPT 997 U/L (13-56); Alkaline Phosphatase 191 U/L (45-117); Anion Gap 6 (5-15); BUN 10 mg/dL (7-18); BUN/Creat Ratio 14.4 RATIO (10-20); Calcium,Total 8.9 mg/dL (8.5-10.1); Chloride 110 mmol/L (98-107); EST Glomerular Filtration Rate 88 mL/min (>60); Est Glom Filt Rate - Afr Amer 107 mL/min (>60); Estimated Creatinine Clearance 46.43 ml/min; Globulin 3.8 g/dL (2.2-4.2); Glucose 115 mg/dL (74-106); Potassium 4.1 mmol/L (3.5-5.1); Protein, Total 6.8 g/dL (6.4-8.2); Sodium Level 140 mmol/L (136-145)
[2021-08-02] MEDS: oxyCODONE 5 MG Tablet PO ×2 (07:49→16:13)
[2021-08-02 08:28] LABS: Bilirubin, Direct 2.11 mg/dL (0.00-0.30); Ferritin 45 ng/mL (8-252); Iron 140 ug/dL (50-170); Iron Binding Capacity,Total 266 ug/dL (250-450); PERCENT IRON SATURATION 52.6 % (15.0-55.0)
--- NOTE | 2021-08-02 09:03 | PN.SURG_ITS ---
Subjective Subjective Patient seen and examined during AM rounds. She is found sitting out of bed in a chair. She states that she is feeling better today after having several bowel movements overnight. She does confess that she did not get great sleep but she had a number of trips to the bathroom to urinate. She also expresses an ap petite and wishes to have her diet advanced. Objective Data Objective Data Vital Signs: Vital Signs Temp Pulse Resp BP Pulse Ox 98.8 F 82 18 164/84 H 93 08/02/21 05:13 08/02/21 05:23 08/02/21 05:13 08/02/21 05:23 08/02/21 07:06 Oxygen Flow Rate (L/min) 2 Oxygen Delivery Method Room Air Weight: 233 lb 6.4 oz Body Mass Index (BMI) 38.8 Intake & Output: Intake and Output for Last 24 Hours 07/31/21 08/01/21 08/02/21 23:59 23:59 23:59 Intake Total 3550.25 / 3550.25 4037.66 / 4037.66 1358.33 / 1358.33 Output Total 600 / 600 300 / 300 Balance 2950.25 / 2950.25 3737.66 / 3737.66 1358.33 / 1358.33 Lab / Micro Data Result Diagrams: 08/01/21 04:52 08/02/21 05:58 Labs: Laboratory Results - last 24 hr 08/01/21 11:03: POC Glucose 120 H 08/01/21 16:59: POC Glucose 114 H 08/01/21 20:34: Chlam trachomat DNA PCR Negative, N.gonorrhoeae DNA (PCR) Negative 08/01/21 21:41: POC Glucose 111 H 08/02/21 05:28: POC Glucose 100 08/02/21 05:58: Sodium 140, Potassium 4.1, Chloride 110 H, Carbon Dioxide 24.0, Anion Gap 6, BUN 10, Creatinine 0.70, Estim Creat Clear Calc 46.43, Est GFR (MDRD) Af Amer 107, Est GFR (MDRD) Non-Af 88, BUN/Creatinine Ratio 14.4, Glucose 115 H, Calcium 8.9, Total Bilirubin 2.70 H, AST 647 H, ALT 997 H, Alkaline Phosphatase 191 H, Total Protein 6.8, Albumin 3.0 L, Globulin 3.8, Albumin/Globulin Ratio 0.8 L 08/02/21 05:58: Iron 140, TIBC 266, Iron Saturation 52.6, Ferritin 45, Direct Bilirubin 2.11 H Micro: Microbiology 07/31/21 01:00 Nasal Secretion SARS-CoV-2 Antigen (Rapid) - Final Physical Exam Const oriented x3 and no apparent distress Resp normal respiratory effort GI GI Narrative: Mildly distended, mild ecchymosis about port site incisions. Softer, appropriately tender to palpation in the right upper quadrant about port site incisions Assessment & Plan Assessment/Plan (1) S/P laparoscopic cholecystectomy: PLAN: Postoperative day 2 patient seems to be recovering as expected from a clinical standpoint. She is experiencing left abdominal discomfort and seems to only be tender about her port site incisions. Her incision sites remain appropriate beneath her operative dressings. Unfortunately, her comprehensive metabolic panel today shows further evidence of hepatocellular injury and possible acute hepatitis. Gastroenterology notified of this change and consult has been placed. (2) Constipation: PLAN: Patient with several small bowel movements overnight after use of MiraLAX and lactulose yesterday. Requesting a diet today, however, we must hold on a diet advancement given work-up for abnormal CMP values. (3) Abnormal LFTs: PLAN: Patient with further elevation of ALT and AST as well as bilirubin. Cholangiogram was reviewed and there are certainly no filling defects to see. Patient previously related to a strong family history of hemochromatosis. ? Iron studies ordered ? Acute hepatitis panel ? Gastroenterology consult made?have requested MRCP and coags Charges/Coding Visit Charges Inpatient E&M: 01402 Subs Hosp L2
[2021-08-02] MEDS: 0.9% Saline Lock 10 ML Syringe IV (09:17)
[2021-08-02] MEDS: LORazepam 2 MG/ML Syringe 0.5 MG IV (09:17)
--- NOTE | 2021-08-02 09:35 | MRI_ITS ---
EXAM: MR ABDOMEN WITHOUT INTRAVENOUS CONTRAST, MRCP PROTOCOL CLINICAL INDICATION: eval intrahepatic bile ducts -- Pt w some claustrophobia TECHNIQUE: Multiplanar and multisequence MR images of the abdomen without intravenous contrast obtained with MRCP sequence. Three-dimensional post-processing reconstructions were performed. This report was created using [email or web address] report generation technology. COMPARISON: Operative cholangiogram July 31, 2021 FINDINGS: LOWER THORAX: Minimal right pleural effusion and right lower lobe atelectasis. LIVER: Unremarkable. Normal morphology. GALLBLADDER AND BILE DUCTS: Gallbladder is surgically absent. No intra- or extrahepatic biliary ductal dilation. No choledochal filling defect. PANCREAS: Unremarkable. No focal cystic mass. No pancreatic duct dilation. SPLEEN: Unremarkable. Non-enlarged. ADRENALS: Unremarkable. No nodules. KIDNEYS AND URETERS: 2 cm right renal lesion suggestive of a cyst incompletely interrogated on this exam. Normal renal size and position. No hydronephrosis. INTRAPERITONEAL SPACE: Unremarkable. No ascites or other fluid collection. VASCULATURE: Unremarkable. Abdominal aorta is non-dilated. LYMPH NODES: No enlarged lymph nodes. MRI/MRCP Abdomen without Contrast IMPRESSION: Normal biliary tree. Electronically Signed: Nikos Gonzalez MD at 11:40 EDT ,
[2021-08-02 11:20] LABS: Bedside Glucose 102 mg/dL (74-106)
[2021-08-02 12:01] LABS: Prothrombin Time (Protime)PT. 13.1 SECONDS (11.7-14.9)
[2021-08-02 12:02] LABS: Partial Thromboplast Time 27.2 Seconds (24.1-36.2)
--- NOTE | 2021-08-02 13:22 | PN.HOSP_ITS ---
Subjective Subjective Had BM yesterday and has been able to tolerate PO. Objective Data Objective Data Vital Signs: Vital Signs Temp Pulse Resp BP Pulse Ox 36.3 C L 95 18 178/89 H 95 08/02/21 09:06 08/02/21 10:10 08/02/21 10:10 08/02/21 10:10 08/02/21 10:10 Oxygen Flow Rate (L/min) 2 Oxygen Delivery Method Room Air Weight: 105.868 kg Body Mass Index (BMI) 38.8 Intake & Output: Intake and Output for Last 24 Hours 07/31/21 08/01/21 08/02/21 23:59 23:59 23:59 Intake Total 3550.25 / 3550.25 4037.66 / 4037.66 1358.33 / 1358.33 Output Total 600 / 600 300 / 300 Balance 2950.25 / 2950.25 3737.66 / 3737.66 1358.33 / 1358.33 Lab / Micro Data Result Diagrams: 08/01/21 04:52 08/02/21 05:58 Labs: Laboratory Results - last 24 hr 08/01/21 16:59: POC Glucose 114 H 08/01/21 20:34: Chlam trachomat DNA PCR Negative, N.gonorrhoeae DNA (PCR) Negative 08/01/21 21:41: POC Glucose 111 H 08/02/21 05:28: POC Glucose 100 08/02/21 05:58: Sodium 140, Potassium 4.1, Chloride 110 H, Carbon Dioxide 24.0, Anion Gap 6, BUN 10, Creatinine 0.70, Estim Creat Clear Calc 46.43, Est GFR (MDRD) Af Amer 107, Est GFR (MDRD) Non-Af 88, BUN/Creatinine Ratio 14.4, Glucose 115 H, Calcium 8.9, Total Bilirubin 2.70 H, AST 647 H, ALT 997 H, Alkaline Phosphatase 191 H, Total Protein 6.8, Albumin 3.0 L, Globulin 3.8, Albumin/Globu hanane Ratio 0.8 L 08/02/21 05:58: Iron 140, TIBC 266, Iron Saturation 52.6, Ferritin 45, Direct Bilirubin 2.11 H 08/02/21 11:16: POC Glucose 102 08/02/21 11:45: PT 13.1, INR 1.0, APTT 27.2 Micro: Microbiology 07/31/21 01:00 Nasal Secretion SARS-CoV-2 Antigen (Rapid) - Final Radiography Diagnostic Testing: Radiology Impression MRCP 08/02/21 09:35 IMPRESSION: Normal biliary tree. Electronically Signed: Nikos Gonzalez MD at 11:40 EDT Reading Location ID and State: [address] [place] [address] Tel , Service support , Physical Exam Const alert and no apparent distress GI GI Narrative: distended, but slightly softer than 08/01. Assessment & Plan Assessment/Plan (1) Cholelithiasis: QUALIFIERS: Cholelithiasis location: gallbladder and bile duct Cholecystitis presence: without cholecystitis Biliary obstruction: without biliary obstruction Qualified Code(s): K80.70 - Calculus of gallbladder and bile duct without cholecystitis without obstruction (2) Abnormal LFTs: (3) Biliary colic: PLAN: 1. acute cholecystitis * s/p lap ana. complicated by numerous adhesions. * mgmt per general surgery 2. DM2 * diet-controlled at baseline * on SSI * fair control at this time. 3. HTN * increasing * add amlodipine 4. Elevated liver transaminases and bilirubin * MRCP today showed normal billiary tree * US on admission noted hepatic steatosis * DW pt and her . She had brothers with hemochromatosis, 1 requiring a liver transplant. Thinks she may have been check for it before. * Transferrin ordered * GI consulted. 5. VTE prophylaxis: SCDs 6. Ileus * suspected and now resolved * lactulose given * defer to general surgery Greater than 35 minutes of which greater than 50% was reviewing data and history with the patient and her about cirrhosis. abnormal liver tests. Charges/Coding Visit Charges Inpatient E&M: 08176 Subs Hosp L3
[2021-08-02] MEDS: amLODIPine 5 MG Tablet PO (14:30)
[2021-08-02 15:32] LABS: AST(SGOT) 176 U/L (15-37); Alanine Aminotransfer ALT/SGPT 612 U/L (13-56); Albumin, Serum 2.9 g/dL (3.2-5.0); Alkaline Phosphatase 173 U/L (45-117); Bilirubin, Direct 0.47 mg/dL (0.00-0.30); Globulin 3.6 g/dL (2.2-4.2); Protein, Total 6.5 g/dL (6.4-8.2)
--- NOTE | 2021-08-02 17:32 | PCM.DC ---
Discharge Instructions Diet Discharge Diet: No restrictions (Low-fat diet recommended) and - (Avoid any alcohol for first week postop) Activity Discharge Activity: May Not Drive (May not drive while taking narcotic pain medications) and May Shower (May begin showering 48hours postop. Please avoid baths or submerging surgical incisions before skin is completely healed.) May resume sexual activity in: 2 weeks Ice area for (Minutes): 20 Lifting Restrictions: Limit lifting to <15lbs for 2 weeks following surgery Dressing / Incision Call your doctor if your incision/area has: Sudden Increased Bleeding, Increased Pain/ Swelling, Increased Redness, Foul Smelling Discharge and Swelling at the incision site Call your doctor if you observe: Fever of 101 or Higher, Inability to urinate, Inability to have a bowel movement and Uncontrolled pain Suture Line Care: Avoid Pulling/Pushing Remove Dressing in: 2 days (Please leave steri strips (medical tape) in place until they fall off spontaneously or are removed at your follow-up appointment) Cleanse incision/area with: Keep Dressing Clean & Dry Follow Up Care Please Follow Up With: Doug Quevedo MD When: 7 to 10 days postop Test Results: Test results from this visit will be discussed in further detail at your follow-up appointment, if applicable. Discharge Plan Admission Admit Date/Time: 07/30/21 16:45 Primary Reason for Your Visit: Cholecystitis with abnormal LFTs Attending Provider: Doug Quevedo Primary Care Provider: Negrito Méndez Consulting Providers: Vince Perez Instructions Patient Instructions: After Gallbladder Surgery Additional Instructions / Restrictions: Patient should be instructed to continue MiraLAX while using narcotics. Patient should be cautioned with overuse of NSAIDs given concurrent nabumetone prescription. Discharge Orders/Prescriptions Prescriptions: New oxycodone 5 mg Tablet 5 mg PO Q6H PRN PRN (Reason: Pain Score 6-10) 3 Days Qty: 14 RF: 0 Continued levothyroxine 150 mcg tablet 150 mcg PO DAILY 30 Days Qty: 30 RF: 0 omega-3 fatty acids 1,000 mg capsule 2,000 mg PO DAILY RF: 0 nabumetone 500 mg tablet 500 mg PO BID RF: 0 diclofenac sodium 1 % Gel 1 g TOPICAL DAILY PRN (Reason: ARTHRITIS) RF: 0 Multivitamin Gummies 200 mcg Tablet,Chewable 1 tab PO DAILY RF: 0 magnesium oxide 400 mg magnesium Tablet 400 mg PO QHS RF: 0 Collagen Gummies 4 ea PO/SL DAILY RF: 0 clobetasol 0.05 % cream 1 applic TOPICAL PRN PRN (Reason: Skin Cleansing) RF: 0 Referrals / Follow Up: Negrito Méndez MD [Primary Care Provider] - Disposition Disposition (needs filled in before D/C Order can be placed): Home, Self Care
[2021-08-02 17:36] LABS: Bedside Glucose 145 mg/dL (74-106)
--- NOTE | 2021-08-02 17:41 | PCM.DC.SUM ---
Providers Date of Admission: 07/30/21 Primary Care Physician: Dr. Negrito Méndez MD Consultations 08/02/21 08:39 Consult: Gastroenterology Routine Consulting Provider: Vince Perez Reason for Consult: evidence of acute hepatitis EMERGENT Consult: No MD Notified: Yes Date Notified: 08/02/21 Time Notified: 08:40 Method of Notification: Verbal Reason For Visit: CHOLECYSTITIS WITH ABNORMAL LFTs Diagnosis Discharge Diagnosis (1) Cholelithiasis: Status: Acute Code(s): K80.20 - Calculus of gallbladder without cholecystitis without obstruction Qualifiers: Cholelithiasis location: gallbladder and bile duct Cholecystitis presence: without cholecystitis Biliary obstruction: without biliary obstruction Qualified Code(s): K80.70 - Calculus of gallbladder and bile duct without cholecystitis without obstruction Plan: Status post lap ana (2) Abnormal LFTs: Status: Acute Code(s): R79.89 - Other specified abnormal findings of blood chemistry Plan: Continue to trend CMP (3) Biliary colic: Status: Acute Code(s): K80.50 - Calculus of bile duct without cholangitis or cholecystitis without obstruction Plan: Status post lap ana Medications at Discharge Home Medications levothyroxine 150 mcg tablet 150 mcg PO DAILY 30 Days #30 tab 03/12/21 omega-3 fatty acids 1,000 mg capsule 2,000 mg PO DAILY 03/12/21 Collagen Gummies 4 ea PO/SL DAILY 07/30/21 Multivitamin Gummies 1 tab PO DAILY 07/30/21 clobetasol 1 applic TOPICAL PRN PRN 07/30/21 diclofenac sodium 1 g TOPICAL DAILY PRN 07/30/21 magnesium oxide 400 mg PO QHS 07/30/21 nabumetone 500 mg PO BID 07/30/21 oxycodone 5 mg PO Q6H PRN PRN 3 Days #14 tab 08/02/21 Hospital Course Operations cholecystecomy (With intraoperative cholangiogram on 07/31/2021) Summary of Care Provided Minutes Spent on Discharge: 20 Hospital Course: Patient was admitted through the emergency department at [facility] on 07/30/2021 after a presentation for acute onset abdominal pain that was associated with nausea. ED investigation uncovered abnormal LFTs, left shift, and sonographic evidence of cholelithiasis. Patient has significant tenderness of the right upper quadrant on exam that was only partially responsive to IV narcotics. Combining this with patient's LFTs, I recommended admission and laparoscopic cholecystectomy with intraoperative cholangiogram the following day. Along with this, a consultation was made for the hospitalist service as the patient was noted to be mildly hypoxic and hypertensive during her ER evaluation. Her operation proceeded in a uncomplicated manner on 07/31/2021. Postoperatively, patient complained of abdominal pain of her right upper quadrant as well as cramping in her bilateral lower quadrants. She had made known that she was dealing with constipation prior to her emergency department evaluation. Therefore, more aggressive or measures were made at addressing patient's constipation. Postoperative day 1, patient had ongoing abdominal pain of the right upper quadrant as well as migratory pains of the bilateral lower quadrants. She denied passage of flatus and was quite uncomfortable. Therefore, additional measures were taken to improve her constipated state. Notably, a.m. labs showed some downtrending of her T bili and AST, persistent elevation of her alk phos and ALT. Overnight, patient did experience several bowel movements with some improvement in her abdominal discomfort. However, a.m. labs on postoperative day 2 showed worsening of her transaminitis and hyperbilirubinemia. She had given a history of hereditary hemochromatosis and all 3 of her brothers so a investigation was made for this diagnosis, as well as acute hepatitis. Along with this laboratory evaluation, a consultation was made to gastroenterology. Gastroenterology requested an MRCP to better evaluate the patient's intrahepatic biliary tree. All of the above laboratories (save the acute hepatitis panel which is still pending) returned within normal limits as well as the patient's MRCP. Repeat LFTs were requested by gastroenterology and were shown to be spontaneously downtrending. Patient was also given a regular diet and tolerated this without issue. Now feeling better, patient requested discharge to home. Coupling this with her clinical improvements, and verifying with gastroenterology, her request was granted. Upon granting discharge, I requested patient follow-up with me in 1 week with repeat comprehensive metabolic panel. I also recommended she abstain from any alcohol during this next week as her liver recovered. Patient expressed agreement with these requests and was subsequently discharged. Weight / BMI Weight Weight: 233 lb 7.512 oz Body Mass Index (BMI) 38.8 ABG / Lab / Microbiology Data Result Diagrams: 08/01/21 04:52 08/02/21 05:58 Laboratory: Laboratory Results - last 24 hr 08/01/21 20:34: Chlam trachomat DNA PCR Negative, N.gonorrhoeae DNA (PCR) Negative 08/01/21 21:41: POC Glucose 111 H 08/02/21 05:28: POC Glucose 100 08/02/21 05:58: Sodium 140, Potassium 4.1, Chloride 110 H, Carbon Dioxide 24.0, Anion Gap 6, BUN 10, Creatinine 0.70, Estim Creat Clear Calc 46.43, Est GFR (MDRD) Af Amer 107, Est GFR (MDRD) Non-Af 88, BUN/Creatinine Ratio 14.4, Glucose 115 H, Calcium 8.9, Total Bilirubin 2.70 H, AST 647 H, ALT 997 H, Alkaline Phosphatase 191 H, Total Protein 6.8, Albumin 3.0 L, Globulin 3.8, Albumin/Globulin Ratio 0.8 L 08/02/21 05:58: Iron 140, TIBC 266, Iron Saturation 52.6, Ferritin 45, Direct Bilirubin 2.11 H 08/02/21 11:16: POC Glucose 102 08/02/21 11:45: PT 13.1, INR 1.0, APTT 27.2 08/02/21 14:51: Total Bilirubin 1.30 H, Direct Bilirubin 0.47 H, AST 176 H, ALT 612 H, Alkaline Phosphatase 173 H, Total Protein 6.5, Albumin 2.9 L, Globulin 3.6 08/02/21 17:29: POC Glucose 145 H Microbiology: Microbiology 07/31/21 01:00 Nasal Secretion SARS-CoV-2 Antigen (Rapid) - Final Radiography Diagnostic Testing: Radiology Impression Cholangiogram 07/31/21 10:31 IMPRESSION: Normal operative cholangiogram. Electronically Signed: Nikos Gonzalez MD at 12:07 EDT , ADDENDUM: 08/02/21 1421 IMPRESSION: undefined MRCP 08/02/21 09:35 IMPRESSION: Normal biliary tree. Electronically Signed: Nikos Gonzalez MD at 11:40 EDT , D/C Instructions Discharge Diet: No restrictions (Low-fat diet recommended) and - (Avoid any alcohol for first week postop) May resume sexual activity in: 2 weeks Ice area for (Minutes): 20 Call your doctor if your incision/area has: Sudden Increased Bleeding, Increased Pain/ Swelling, Increased Redness, Foul Smelling Discharge and Swelling at the incision site Call your doctor if you observe: Fever of 101 or Higher, Inability to urinate, Inability to have a bowel movement and Uncontrolled pain Suture Line Care: Avoid Pulling/Pushing Cleanse incision/area with: Keep Dressing Clean & Dry Please Follow Up With: Doug Quevedo MD When: 7 to 10 days postop Meaningful Use Info Meaningful Use Diagnoses (Choose all that apply): None applicable Discharge Plan Admission Admit Date/Time: 07/30/21 16:45 Primary Reason for Your Visit: Cholecystitis with abnormal LFTs Attending Provider: Doug Quevedo Primary Care Provider: Negrito Méndez Consulting Providers: Vince Perez Instructions Patient Instructions: After Gallbladder Surgery Additional Instructions / Restrictions: Patient should be instructed to continue MiraLAX while using narcotics. Patient should be cautioned with overuse of NSAIDs given concurrent nabumetone prescription. Discharge Orders/Prescriptions Prescriptions: New oxycodone 5 mg Tablet 5 mg PO Q6H PRN PRN (Reason: Pain Score 6-10) 3 Days Qty: 14 RF: 0 Continued levothyroxine 150 mcg tablet 150 mcg PO DAILY 30 Days Qty: 30 RF: 0 omega-3 fatty acids 1,000 mg capsule 2,000 mg PO DAILY RF: 0 nabumetone 500 mg tablet 500 mg PO BID RF: 0 diclofenac sodium 1 % Gel 1 g TOPICAL DAILY PRN (Reason: ARTHRITIS) RF: 0 Multivitamin Gummies 200 mcg Tablet,Chewable 1 tab PO DAILY RF: 0 magnesium oxide 400 mg magnesium Tablet 400 mg PO QHS RF: 0 Collagen Gummies 4 ea PO/SL DAILY RF: 0 clobetasol 0.05 % cream 1 applic TOPICAL PRN PRN (Reason: Skin Cleansing) RF: 0 Referrals / Follow Up: Negrito Méndez MD [Primary Care Provider] - Disposition Disposition (needs filled in before D/C Order can be placed): Home, Self Care Charges/Coding Visit Charges Inpatient E&M: 64921 Disch Hosp
[2021-08-03 08:10] LABS: HEPATITIS B SURFACE AG Negative (Negative); Hepatitis A IgM Antibody Negative (Negative); Hepatitis B Core AB IgM Negative (Negative)
[2021-08-03 09:41] LABS: Hep C Antibodies <0.1 s/co ratio (0.0-0.9)
--- NOTE | 2021-08-03 16:29 | PCM.CONS.GEN ---
Assessment & Plan Assessment/Plan (1) Hepatocellular injury: PLAN: Liver function tests possibly secondary to retained gallstone. MRCP did not show any signs of filling defect however that would be the only thing that I could see with normal imaging that it could be. It is high probability that she had an intrahepatic stone states down into the common bile duct and resulted in increased LFTs. At this time she is doing very well. She denies any nausea or abdominal pain. She denies any chest pain shortness of breath. She is tolerating a diet. I think since her labs are improving she can follow-up as an outpatient. There was some concerns about hemochromatosis. I do not think this is an acute exacerbation of chronic disease. By imaging she does have nonalcoholic steatohepatitis which can be addressed as an outpatient. 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 She rates pain 8 out of 10 in severity, worse with any movement or palpation of the region. She notes that the discomfort is more dull aching and throbbing and describes it sometimes as a burning. Work-up in the ED included T98.9, heart rate 71, BP 115/87, respiratory rate 18, 94% on room air, CBC with WC 6.6, hemoglobin 15.3, platelets 316 without marked shift, CMP with glucose 133, total bilirubin 2.20, AST/ALT 518/415, alk phos 141, troponin less than 3, lipase 68, gallbladder ultrasound with hepatic steatosis and cholecystolithiasis with a negative sonographic Diehl sign and no pericholecystic fluid with multiple stones evident. ED physician discussed case with Dr. Quevedo, general surgeon who admitted patient with initiation of IV Zosyn therapy to be cautious and planned cholecystectomy 07/31/2021. General surgery requested medical consultation cholecystectomy and her liver enzymes are starting to trend up. I ordered an MRCP and did not show any signs of obstruction. She get her labs repeated and they have been decreasing accordingly. [facility] Medical History (Updated 08/03/21 @ 16:[address] Clarke Friend, DO) Alcohol use Chronic cough Diabetes Diet-controlled type 2 diabetes mellitus Former tobacco use High cholesterol History of steroid therapy HLD (hyperlipidemia) HTN (hypertension) Hypothyroidism Lichen sclerosus et atrophicus of the vulva Obesity Restless legs Thyroiditis Home Medications levothyroxine 150 mcg tablet 150 mcg PO DAILY 30 Days #30 tab 03/12/21 [History Last Taken 07/29/21] omega-3 fatty acids 1,000 mg capsule 2,000 mg PO DAILY 03/12/21 [History Last Taken 07/29/21] Collagen Gummies 4 ea PO/SL DAILY 07/30/21 [History Last Taken 07/29/21] Multivitamin Gummies 1 tab PO DAILY 07/30/21 [History Last Taken 07/29/21] clobetasol 1 applic TOPICAL PRN PRN 07/30/21 [History Last Taken 1 Week Ago ~07/23/21] diclofenac sodium 1 g TOPICAL DAILY PRN 07/30/21 [History Last Taken 07/28/21] magnesium oxide 400 mg PO QHS 07/30/21 [History Last Taken 07/29/21] nabumetone 500 mg PO BID 07/30/21 [History Last Taken 07/29/21] oxycodone 5 mg PO Q6H PRN PRN 3 Days #14 tab 08/02/21 [Rx Last Taken Unknown] Allergy/AdvReac Type Severity Reaction Status Date / Time No Known Allergies Allergy Verified 07/30/21 12:38 Family History (Updated 07/30/21 @ 17:[address] Shama Bajwa MD) Father Colon cancer Diagnosed age 76. Mother Heart disease CHF (congestive heart failure) Surgical History (Updated 08/01/21 @ 08:[address] Doug Quevedo MD) History of bilateral tubal ligation S/P endometrial ablation S/P tubal ligation Social History (Updated 07/30/21 @ 17:[address] Shama Bajwa MD) household members: spouse current occupational status: retired Smoking Status: Former smoker how long ago did patient quit smoking: Quit 33 years prior, smoked intermittently since college, ~ 1/2 ppd. alcohol intake: current alcohol intake frequency: holidays/special occasions only substance use type: does not use what type of physical activity do you participate in: none seatbelt use: always do you feel safe at home: Yes additional social history: - Noel GUPTA Review of Systems ROS Unobtainable: other Constitutional Constitutional: Denies fatigue, fever(s), poor appetite, weight gain or weight loss ENT HEENT: Denies mouth lesions Cardiovascular Cardiovascular: Denies abdominal bloating, abdominal edema or abdominal pain Respiratory/Chest Respiratory/Chest: Denies change in mental status, change in phlegm color, chest congestion or chest tightness Gastrointestinal Gastrointestinal: Denies belching, bloating, change in bowel habits, change in stool character, chewing difficulty, coffee ground emesis, constipation, cramping, diarrhea, dyspepsia, dysphagia, early satiety, excessive flatus, fecal incontinence, heartburn, hematemesis, hematochezia, hemorrhoids, loose stools, melena, nausea, odynophagia, rectal bleeding, tenesmus, vomiting or weight changes Genitourinary Genitourinary: Denies abdominal discomfort, burning urination or itching Musculoskeletal Musculoskeletal: Reports as per HPI; Denies muscle weakness or myalgias Integumentary Integumentary: Denies jaundice Neurologic Neurologic: Denies lack of coordination or weakness Psychiatric Psychiatric: Denies confusion, depression, memory loss, mood swings, paranoia or suicidal ideation Endocrine Endocrinology: Denies systems reviewed and no addt'l complaints, except as documented Hematologic/Lymphatic Hematologic/Lymphatic: Denies anemia, easy bleeding, easy bruising or lymphadenopathy Allergic/Immunologic Allergic/Immunologic: Denies systems reviewed and no addt'l complaints, except as documented Physical Exam Const alert General Appearance: cooperative Orientation / Consciousness: oriented to person HEENT hearing grossly normal bilaterally Head and Scalp: normal to inspection Face and Sinus: face symmetric Nose: external nose normal Mouth: oral and palatal mucosa normal Eyes conjunctivae normal General Eye: normal appearance of both eyes Neck full ROM General: normal visual inspection Lymph Lymphatic: no lymphadenopathy noted Chest inspection of chest normal and palpation of chest normal Chest: symmetrical chest wall rise Resp normal respiratory effort Effort and Inspection: able to speak in complete sentences Cardio regular rate GI non-distended Percussion: normal to percussion Rectal Exam: deferred Neuro Speech: speech normal Gait (Neuro): normal gait Lab / Micro Data Result Diagrams: 08/01/21 04:52 08/02/21 05:58 Labs: Laboratory Results - last 24 hr 08/02/21 05:58: Hepatitis A IgM Ab Negative, Hep Bs Antigen Negative, Hep B Core IgM Ab Negative, Hepatitis C Ab (EIA) <0.1 08/02/21 17:29: POC Glucose 145 H Charges/Coding Visit Charges Inpatient E&M: 80501 Init Hosp L3
[2021-08-05 08:49] LABS: Transferrin 236 mg/dL (192-364)
== END 2021-08-02 20:28 | disposition home or self-care (01) | DRG 417 ==
LOC: ED 16:54 → MS3 17:01
PROVIDERS: Anesthesiology; Family Medicine; Physician Assistant; Admitting Provider Surgery; Emergency Provider Emergency Medicine; PCP Family Medicine; Visit Provider Surgery
PROC: (CPT 47610; principal; 2021-07-31 09:25)
DX: K80.62 Calculus of gallbladder and bile duct with acute cholecystitis without obstruction (principal); K56.7 Ileus, unspecified; E11.9 Type 2 diabetes mellitus without complications; K85.80 Other acute pancreatitis without necrosis or infection; K75.81 Nonalcoholic steatohepatitis (NASH); E03.9 Hypothyroidism, unspecified; I10 Essential (primary) hypertension; M19.90 Unspecified osteoarthritis, unspecified site; E78.00 Pure hypercholesterolemia, unspecified; Z87.891 Personal history of nicotine dependence; E66.9 Obesity, unspecified; R09.02 Hypoxemia; U09.9 Post COVID-19 condition, unspecified; R74.8 Abnormal levels of other serum enzymes; Z87.42 Personal history of other diseases of the female genital tract; Z79.899 Other long term (current) drug therapy
CPT/HCPCS: 47563; 00790; 36415; 74181; 74300; 76000; 76705; 80053; 80074; 80076; 82248; 82728; 82962; 83036; 83540; 83550; 83690; 84443; 84466; 84484; 85025; 85610; 85730; 87426; 87491; 87591; 88304; 88313; 93005; 96361; 96365; 96366; 96375; 96376; 99218; 99251; 99284; J7030; J7050; A4216; G0378; G0463; J2405

== ENCOUNTER → 2021-08-09 | Outpatient (CLI) | payer MEDICARE, SELFPAY ==
[2021-08-09 14:04] LABS: ALB/GLOB Ratio 0.8 RATIO (0.9-2.4); AST(SGOT) 19 U/L (15-37); Alanine Aminotransfer ALT/SGPT 109 U/L (13-56); Albumin, Serum 3.3 g/dL (3.2-5.0); Alkaline Phosphatase 142 U/L (45-117); Anion Gap 3 (5-15); BUN 23 mg/dL (7-18); BUN/Creat Ratio 33.1 RATIO (10-20); Calcium,Total 9.2 mg/dL (8.5-10.1); Chloride 105 mmol/L (98-107); EST Glomerular Filtration Rate 88 mL/min (>60); Est Glom Filt Rate - Afr Amer 107 mL/min (>60); Globulin 3.9 g/dL (2.2-4.2); Glucose 108 mg/dL (74-106); Potassium 3.8 mmol/L (3.5-5.1); Protein, Total 7.2 g/dL (6.4-8.2); Sodium Level 140 mmol/L (136-145)
== END | disposition home or self-care (01) ==
LOC: LAB 12:58
PROVIDERS: PCP Family Medicine; Referring Provider Surgery; Visit Provider Surgery
DX: K76.9 Liver disease, unspecified (principal)
CPT/HCPCS: 36415; 80053

== ENCOUNTER → 2022-03-19 | Outpatient (CLI) | payer MEDICARE, SELFPAY ==
[2022-03-19 12:03] LABS: Absolute Neutrophil Count 4.2 X10^3/uL (2.0-7.7); Basophil# 0.06 X10^3/uL; Basophil% 0.9 % (0-1); Eosinophil# 0.12 X10^3/uL; Eosinophils% 1.8 % (0-5); Hematocrit 43.6 % (37-47); Hemoglobin 14.2 g/dL (12.0-15.0); Lymphocyte % 26.4 % (19-41); Mean Corp Hgb Conc 32.6 g/dL (32-36); Mean Corpuscular Hgb 30.8 pg (27.0-32.0); Mean Corpuscular Volume 94.6 fL (81-99); Mean Platelet Vol. 10.8 fl (6.2-12.0); Monocyte# 0.57 X10^3/uL; Monocyte% 8.4 % (0-10); NRBC Flagged by Analyzer 0 % (0-5); Neutrophil # 4.24 X10^3/uL (2.7-7.7); Neutrophil % 62.1 % (47-70); Platelet Count 337 K/mm3 (150-450); RBC Distribution Width CV 12.6 % (11.6-14.6); RBC Distribution Width SD 43.8 fl (35.1-43.9); Red Blood Count 4.61 M/mm3 (4.2-5.4); White Blood Count 6.8 K/mm3 (4.4-11.0)
[2022-03-19 12:40] LABS: ALB/GLOB Ratio 0.9 RATIO (0.9-2.4); AST(SGOT) 20 U/L (15-37); Alanine Aminotransfer ALT/SGPT 29 U/L (13-56); Albumin, Serum 3.6 g/dL (3.2-5.0); Alkaline Phosphatase 90 U/L (45-117); Anion Gap 5 (5-15); BUN 19 mg/dL (7-18); BUN/Creat Ratio 26.2 RATIO (10-20); Calcium,Total 9.7 mg/dL (8.5-10.1); Chloride 102 mmol/L (98-107); Creatinine, Serum 0.73 mg/dL (0.55-1.02); EST Glomerular Filtration Rate 84 mL/min (>60); Est Glom Filt Rate - Afr Amer 101 mL/min (>60); Glucose 100 mg/dL (74-106); Potassium 4.2 mmol/L (3.5-5.1); Protein, Total 7.6 g/dL (6.4-8.2); Sodium Level 138 mmol/L (136-145); T4 Free Direct 1.26 ng/dL (0.76-1.46)
== END | disposition home or self-care (01) ==
LOC: BFHLAB 10:33
PROVIDERS: PCP Family Medicine; Visit Provider Family Medicine
DX: E03.9 Hypothyroidism, unspecified (principal); E78.5 Hyperlipidemia, unspecified; R73.01 Impaired fasting glucose
CPT/HCPCS: 36415; 80053; 84439; 84443; 85025

== ENCOUNTER → 2022-03-26 | Outpatient (CLI) | payer MEDICARE, SELFPAY ==
--- NOTE | 2022-03-26 07:48 | BI_ITS ---
MAMMOGRAPHY - BILATERAL SCREENING REASON FOR EXAM: Female, 71 years old. Routine annual screening examination. PERTINENT HISTORY: Grandmother with breast cancer. TECHNIQUE: Digital bilateral breast shawnee (3D mammographic acquisition) in the CC and MLO projections. 2-D mediolateral oblique (MLO) and craniocaudad (CC) views of both breasts were obtained. CAD: Full Field Digital Mammography with Computer Added Detection was performed. COMPARISON: Comparison is made with prior examination dated 03/21/2021. FINDINGS: Breast Composition: There are scattered areas of fibroglandular density. There are no dominant masses or suspicious calcifications. Stable small benign-appearing bilateral axillary lymph nodes. No other significant abnormalities are identified. There has been no significant change since the prior study. BI/SCRN MAMM (CAD)W/SHAWNEE BILAT IMPRESSION: Stable bilateral screening mammogram. Yearly follow-up mammogram recommended. (A) ASSESSMENT CATEGORY: BIRADS Category 2: Benign. A letter regarding these results will be sent to the patient by the facility within 30 days. Approximately 10% of breast cancers are not detected by mammography. A normal mammogram should not delay biopsy of a clinically suspicious abnormality. [id number] Electronically Signed: Manoj Moraes MD at 10:03 [facility] ,
== END | disposition home or self-care (01) ==
LOC: OPBI 07:45
PROVIDERS: PCP Family Medicine; Visit Provider Family Medicine
DX: Z12.31 Encounter for screening mammogram for malignant neoplasm of breast (principal); Z80.3 Family history of malignant neoplasm of breast
CPT/HCPCS: 77063; 77067

== ENCOUNTER → 2022-05-29 | Outpatient (CLI) | payer MEDICARE, SELFPAY ==
[2022-05-29 15:38] LABS: ALB/GLOB Ratio 0.9 RATIO (0.9-2.4); AST(SGOT) 17 U/L (15-37); Alanine Aminotransfer ALT/SGPT 26 U/L (13-56); Albumin, Serum 3.4 g/dL (3.2-5.0); Alkaline Phosphatase 93 U/L (45-117); Anion Gap 6 (5-15); BUN 22 mg/dL (7-18); BUN/Creat Ratio 34.8 RATIO (10-20); Calcium,Total 9.5 mg/dL (8.5-10.1); Chloride 106 mmol/L (98-107); Cholesterol 198 mg/dL (200); Creatinine, Serum 0.63 mg/dL (0.55-1.02); EST Glomerular Filtration Rate 98 mL/min (>60); Est Glom Filt Rate - Afr Amer 119 mL/min (>60); Globulin 3.9 g/dL (2.2-4.2); Glucose 86 mg/dL (74-106); High Density Lipoprotein 55 mg/dL; Potassium 4.2 mmol/L (3.5-5.1); Protein, Total 7.3 g/dL (6.4-8.2); Sodium Level 142 mmol/L (136-145); Triglycerides 113 mg/dL; Very Low Density Lipoprotein 23 mg/dL (5-40)
== END | disposition home or self-care (01) ==
LOC: BFHLAB 12:06
PROVIDERS: PCP Family Medicine; Visit Provider Family Medicine
DX: E78.5 Hyperlipidemia, unspecified (principal); M19.90 Unspecified osteoarthritis, unspecified site
CPT/HCPCS: 36415; 80053; 80061

== ENCOUNTER 2022-09-02 01:31 | Emergency (ER) | payer MEDICARE, SELFPAY ==
[2022-09-02 01:32] VITALS: BP 106/78; PULSE 137; RESP 24; TEMP 36.5; O2SAT 95; BMI 38.4
[2022-09-02 01:42] VITALS: O2SAT 95
[2022-09-02] MEDS: Adenosine 6 MG/2 ML Syringe IV (01:54)
[2022-09-02] MEDS: 0.9% Normal Saline 1,000 ML 999 ML IV (01:54)
[2022-09-02 01:58] LABS: Absolute Lymphocyte Count 3.49 X10^3/uL (0.83-4.51); Absolute Neutrophil Count 6.3 X10^3/uL (2.0-7.7); Basophil# 0.16 X10^3/uL; Basophil% 1.4 % (0-1); Eosinophil# 0.74 X10^3/uL; Eosinophils% 6.4 % (0-5); Hemoglobin 13.6 g/dL (12.0-15.0); Lymphocyte # 3.49 X10^3/ul (0.83-4.51); Lymphocyte % 30.1 % (19-41); Mean Corp Hgb Conc 31.6 g/dL (32-36); Mean Corpuscular Hgb 29.6 pg (27.0-32.0); Mean Corpuscular Volume 93.5 fL (81-99); Mean Platelet Vol. 9.8 fl (6.2-12.0); Monocyte# 0.81 X10^3/uL; NRBC Flagged by Analyzer 0 % (0-5); Neutrophil % 54.3 % (47-70); Platelet Count 410 K/mm3 (150-450); White Blood Count 11.6 K/mm3 (4.4-11.0)
[2022-09-02 01:59] VITALS: BP 122/82; PULSE 94; PULSE 96; RESP 16; O2SAT 95
--- NOTE | 2022-09-02 02:01 | CT_ITS ---
STUDY: CTA CHEST REASON FOR EXAM: Female, 71 years old. Dyspnea s/p surgery RADIATION DOSAGE (If Supplied By Facility): CTDIvol = ( 12.63 ) mGy, DLP = ( 521.14 ) mGycm TECHNIQUE: The examination was performed with the intravenous administration of IV 100mL [id number]-370. Post-processing of the angiographic images was performed, with multiplanar reformation and 3D reconstruction. Individualized dose optimization techniques were used for this CT. COMPARISON: Chest X-ray December 09, 2017 FINDINGS: There is a homogeneous but enlarged appearance of the thyroid. Normal enhancement of the main pulmonary artery and right and left pulmonary arteries. Normal enhancement of the bilateral peripheral pulmonary arteries. There is no demonstrated pulmonary embolism. Normal thoracic aorta and visualized great vessels. There is no demonstrated aortic dissection. Normal heart and pericardium. Normal mediastinum. Normal hilar regions. Normal visualized trachea and bronchi. The lungs are well expanded. There is minimal left lower lobe atelectasis. There is a minimal focus of scarring and/or atelectasis within the left lingula and lung base. Normal pleura. Normal chest wall structures. There are degenerative changes of thoracic spine. Normal visualized upper abdomen. CT/CTA Chest W/WO Contrast IMPRESSION: Left greater than right lower lobe atelectasis. No visualized pulmonary embolism. Homogeneous enlarged thyroid recommend correlation with thyroid laboratory values and appropriate. Electronically Signed: Lizzy Sharp MD at 2:59 EDT ,
[2022-09-02 02:05] LABS: International Normalized Ratio 0.9; Prothrombin Time (Protime)PT. 12.3 SECONDS (11.7-14.9)
[2022-09-02 02:06] LABS: Partial Thromboplast Time 29.9 Seconds (24.1-36.2)
[2022-09-02 02:27] LABS: Anion Gap 9 (5-15); BUN 25 mg/dL (7-18); BUN/Creat Ratio 28.9 RATIO (10-20); Calcium,Total 9.8 mg/dL (8.5-10.1); Chloride 105 mmol/L (98-107); Creatinine, Serum 0.87 mg/dL (0.55-1.02); EST Glomerular Filtration Rate 68 mL/min (>60); Est Glom Filt Rate - Afr Amer 83 mL/min (>60); Glucose 131 mg/dL (74-106); Magnesium 2.4 mg/dL (1.6-2.6); Potassium 3.8 mmol/L (3.5-5.1); Sodium Level 141 mmol/L (136-145); Thyroid Stim Hormone (TSH) 0.89 uIU/mL (0.358-3.74)
--- NOTE | 2022-09-02 02:47 | EX.ED.DYSGE1 ---
HPI History of Present Illness Chief Complaint: Shortness of Breath Narrative Narrative: Patient is a 69-year-old female with past medical history of hypertension hyperlipidemia and hypothyroidism. She had a right knee replacement on August 20. She states she has been doing well and went to bed normally but then awoke around 2 AM with shortness of breath. She denies any chest pain or pleuritic chest pain but states that with the sudden onset shortness of breath she is concerned about a PE because of the recent surgery. Secondary to this she presents for evaluation [facility] Medical History Alcohol use Chronic cough Diabetes Diet-controlled type 2 diabetes mellitus Former tobacco use High cholesterol History of steroid therapy HLD (hyperlipidemia) HTN (hypertension) Hypothyroidism Lichen sclerosus et atrophicus of the vulva Obesity Restless legs Thyroiditis Home Medications levothyroxine 150 mcg tablet 150 mcg PO DAILY THYROID 30 days #30 tabs 03/12/21 [History Last Taken 07/29/21] magnesium oxide 400 mg PO QHS LEGS 07/30/21 [History Last Taken 07/29/21] atorvastatin 10 mg tablet 10 mg PO QHS 09/02/22 [History Last Taken Unknown] celecoxib 100 mg capsule (Celebrex) 100 mg PO BID 09/02/22 [History Last Taken Unknown] gabapentin 300 mg capsule 300 mg PO TID 09/02/22 [History Last Taken Unknown] oxycodone 5 mg tablet 5 mg PO Q6H PRN PRN Pain Score 6-10 09/02/22 [History Last Taken Unknown] Allergy/AdvReac Type Severity Reaction Status Date / Time No Known Allergies Allergy Verified 07/30/21 12:38 Family History (Updated 07/30/21 @ 17:[address] Shama Bajwa MD) Father Colon cancer Diagnosed age 76. Mother Heart disease CHF (congestive heart failure) Surgical History (Updated 08/12/21 @ 18:[address] Doug Quevedo MD) History of bilateral tubal ligation S/P endometrial ablation S/P laparoscopic cholecystectomy S/P tubal ligation Social History (Updated 07/30/21 @ 17:[address] Shama Bajwa MD) household members: spouse current occupational status: retired Smoking Status: Former smoker how long ago did patient quit smoking: Quit 33 years prior, smoked intermittently since college, ~ 1/2 ppd. alcohol intake: current alcohol intake frequency: holidays/special occasions only substance use type: does not use what type of physical activity do you participate in: none seatbelt use: always do you feel safe at home: Yes additional social history: - Noel GUPTA ROS ED Constitutional Constitutional ED: Denies chills or fever(s) ENT ENT ED: Denies sore throat Cardiovascular Cardiovascular: Reports racing heartbeat; Denies chest pain or palpitations Respiratory/Chest Respiratory/Chest: Reports dyspnea; Denies cough Gastrointestinal Gastrointestinal: Denies abdominal pain, diarrhea, nausea or vomiting Genitourinary Genitourinary ED: Denies dysuria Musculoskeletal Musculoskeletal: Reports other Details: Positive right knee pain Integumentary Denies rash Neurologic Neurologic: Denies headache(s) or paresthesias Hematologic/Lymphatic Hematologic/Lymphatic: Denies easy bleeding or easy bruising EXAM Physical Exam Const Vital Signs: 09/02/22 01:32 09/02/22 01:42 09/02/22 01:44 Temperature 97.7 F L Temperature Source Temporal Pulse Rate 137 H Respiratory Rate 24 H Respiratory Effort Short of Breath Labored Short of Breath Labored Respiratory Depth Deep Respiratory Pattern Tachypnea Blood Pressure 106/78 Blood Pressure Mean 87 Pulse Ox 95 Oxygen Delivery Method Room Air Room Air 09/02/22 01:59 09/02/22 01:59 Temperature Temperature Source Pulse Rate 94 96 Respiratory Rate 16 Respiratory Effort Respiratory Depth Respiratory Pattern Blood Pressure 122/82 H Blood Pressure Mean 95 Pulse Ox 95 Oxygen Delivery Method Room Air Positive well nourished, well developed and obese General Appearance ED: well developed Nutritional Appearance: obese HEENT Reports moist mucous membranes HEENT Narrative: No tongue or lip swelling no oral lesions no airway edema or compromise Eyes PERRL and EOMs intact bilaterally Neck supple and no JVD Chest Wall palpation of chest normal Chest Narrative: No bony deformity or crepitance noted Resp normal respiratory effort and clear to auscultation bilaterally Resp Narrative: Patient has mild tachypnea and breath sounds are diminished throughout but overall clear to auscultation Cardio regular rhythm Rate: tachycardic and other Other Details: Tachycardic rate with regular rhythm. Radial pulses are plus 2 out of 4 bilateral they are equal and symmetric GI non-tender, non-distended and no masses GI Narrative: Abdomen is obese soft nontender nondistended with hypoactive bowel sounds. No voluntary guarding or rigidity no pulsatile mass or fluid wave. Auscultation: hypoactive bowel sounds Palpation: soft Extremity Extremity Narrative: Patient has mild soft tissue swelling to the right knee consistent with recent knee surgery and to the dorsal aspect there is a surgical incision that is clean dry and intact without secondary changes to suggest infection Neuro oriented x3 and CN's II-XII intact bilaterally Sensorium / Orientation: alert Psych mental status grossly normal Skin no rashes or lesions noted MDM MDM MDM Narrative Medical decision making narrative: Patient presented to the ER slightly tachypneic but otherwise had a room air pulse ox in the mid to high 90s. With her recent right knee surgery there is concern for pulmonary embolus pneumonia pneumothorax or atelectasis as a cause of her shortness of breath. Cardiac dysrhythmia or acute coronary syndrome is possible as well. A EKG was obtained upon arrival and patient was found to be in supraventricular tachycardia at a rate of approximate 140 bpm. As she did not have chest pain or pleuritic chest pain I felt the chance for PE was less likely despite her recent surgery. Therefore I opted to start with a 6 mg push of adenosine. After giving the patient this her heart rate converted to sinus tachycardia. After a few minutes she then returned to normal sinus rhythm and reported feeling better. Because of her recent surgery and concern for PE a CTA was then added. CT revealed no acute lung pathology or pulmonary embolus. Patient blood work revealed no signs of electrolyte derangement or anemia. Patient was watched in the ER for few hours and she remained in normal sinus rhythm and reported feeling much better at this time and her pulse ox remained in the high 90s on room air. Therefore this time as there is no need for electrolyte replacement she does not have a PE or signs of infection and she is remained in normal sinus rhythm for the ER stay ever since receiving adenosine she is otherwise safe for discharge and can have her SVT worked up on an outpatient basis History & Record Review Discussion w/independent historian: Patient and Significant other Lab Data Attestation: I reviewed the patient's lab results. Labs: Laboratory Results - last 24 hr 09/02/22 09/02/22 09/02/22 01:37 01:37 01:37 WBC 11.6 H RBC 4.60 Hgb 13.6 Hct 43.0 MCV 93.5 MCH 29.6 MCHC 31.6 L RDW Std Deviation 44.0 H RDW Coeff of Rona 13.0 Plt Count 410 MPV 9.8 Immature Gran % (Auto) 0.800 Neut % (Auto) 54.3 Lymph % (Auto) 30.1 Terry % (Auto) 7.0 Eos % (Auto) 6.4 H Baso % (Auto) 1.4 H Absolute Neuts (auto) 6.3 Absolute Lymphs (auto) 3.49 Nucleated RBC % 0 PT 12.3 INR 0.9 APTT 29.9 Sodium 141 Potassium 3.8 Chloride 105 Carbon Dioxide 27.0 Anion Gap 9 BUN 25 H Creatinine 0.87 Estim Creat Clear Calc 52.60 Est GFR (MDRD) Af Amer 83 Est GFR (MDRD) Non-Af 68 BUN/Creatinine Ratio 28.9 H Glucose 131 H Calcium 9.8 Magnesium 2.4 TSH 0.89 Radiography Diagnostic Testing: Clinical Impression(s) from Imaging Studies Chest CTA 09/02/22 02:01 IMPRESSION: Left greater than right lower lobe atelectasis. No visualized pulmonary embolism. Homogeneous enlarged thyroid recommend correlation with thyroid laboratory values and appropriate. Electronically Signed: Lizzy Sharp MD at 2:59 EDT , Discharge Plan Triage Chief Complaint: Shortness of Breath ED Provider: Lee Heredia Dx/Rx/DC Orders Clinical Impression: Supraventricular tachycardia, Type 2 diabetes mellitus, Hypothyroidism Instructions: ED Understanding Supraventricular Tachycardia (SVT), Treatment for Supraventricular ... Prescriptions: No Action levothyroxine 150 mcg tablet 150 mcg PO DAILY 30 Days Qty: 30 Label Comments: magnesium oxide 400 mg magnesium Tablet 400 mg PO QHS atorvastatin 10 mg tablet 10 mg PO QHS Label Comments: 1 tablet by mouth once a day gabapentin 300 mg capsule 300 mg PO TID Label Comments: 1 capsule by mouth three times a day celecoxib [Celebrex] 100 mg capsule 100 mg PO BID Label Comments: Take 1 capsule by mouth twice a day as needed for pain oxycodone 5 mg tablet 5 mg PO Q6H PRN PRN (Reason: Pain Score 6-10) Primary Care Provider: Nel Engle Referrals: Kd Petersen MD [Med Staff - Active Staff] - Nel Engle MD [Primary Care Provider] - Activity Restrictions/Additional Instructions: Please follow-up with cardiology as you went into an abnormal heart rhythm this evening. If the symptoms happen again you may try massaging 1 side of your neck or blowing into a straw or submerging your face in ice water bath which can sometimes help resolve the abnormal heart rhythm. If you have any further concerns please return to the hospital for repeat evaluation Disposition Disposition: Home, Self Care Discharge Date/Time: 09/02/22 03:28
[2022-09-02 03:27] VITALS: BP 145/91; PULSE 89; RESP 16; O2SAT 96
== END 2022-09-02 03:28 | disposition home or self-care (01) ==
PROVIDERS: Emergency Provider Emergency Medicine; PCP Family Medicine; Visit Provider Emergency Medicine
DX: R06.02 Shortness of breath (principal); I47.1 Supraventricular tachycardia; E11.9 Type 2 diabetes mellitus without complications; E78.00 Pure hypercholesterolemia, unspecified; Z87.891 Personal history of nicotine dependence; I10 Essential (primary) hypertension; E03.9 Hypothyroidism, unspecified; Z79.899 Other long term (current) drug therapy; Z90.49 Acquired absence of other specified parts of digestive tract; Z96.651 Presence of right artificial knee joint
CPT/HCPCS: 71275; 80048; 83735; 84443; 85025; 85610; 85730; 93005; 99284; J7030; Q9967; A4216; J0153

== ENCOUNTER 2022-10-30 11:30 | Outpatient (RCR) | payer MEDICARE, SELFPAY ==
--- NOTE | 2022-08-29 16:01 | HP.PTEVAL ---
Patient's Visit Information ISAURO PLUNKETT is a 71 year old F referred to Physical Therapy by Dr. Sp De Jesus MD with a diagnosis of L TKR. Date of Evaluation: 08/29/22 Physical Therapist: Abiel Apple, PT, PRADEEP, SCS, CSCS - Visit Plan Frequency: 2x /Week Duration: 6 Weeks Plan: Lite ROM strengtening, manual therapy to reduce swelling, vaso to reduce swelling,gait training. Gather fucntional outcomes next visit. - Subjective Mrs. Plunkett is a pleasant 71 yo who was referred to our care by Dr De Jesus following L TKR on August 21. She states that she has had a long standing history of knee pain dating back at least 8 years. She states that her knee pain was okay following surgery but it has increase significantly since. - Objective Ambulating with a walker slower than normal. Was using cane at times for long distances. Girth measurement indicate almost 2 inches swelling at patella. 20.0 inc vs 18.5, 3 inches above 21.5 vs 20.5 3 inches below 17 vs 16. ROM -5 ext 80 arom 90 PRM. Tenderness in calf, dorsal peddle pulse palpable. Incision site is healing well with no seeping or drainage. We discussed over the holiday weekend if she has increased swelling, increase pain in calf that she should go to ER to rule out a DVT which she is taking injections preventatively. - Goals Goal 1:: Return demo HEP, Understand symptoms of DVT Goal Time Frame: 1 Week Goal 2:: Improve ROM 10% with 2 weeks Goal Time Frame: 2 Weeks Goal 3:: Wean from walked as appropriate, increase walking distance to community 500+ feet Goal Time Frame: 4-6 Weeks - Rehabilitation Potential Physical Therapy Diagnosis: L TKR with increased swelling Rehabilitation Potential: Good - Anticipated Interventions Patient/Client Instruction: Educate patient on: Condition, Plan of Care, Risk Factors For the Purpose of:: To decrease pain, To decrease swelling/inflammation, To increase ROM, To assume or resume ADL's Therapeutic Exercise to Include: Strength training, Balance training, Coordination, Gait and locomotor training For the Purpose of:: To decrease pain, To decrease swelling/inflammation, To increase ROM, To assume or resume ADL's Manual Therapy Techniques to Include: Massage, Manual lymph drainage, Mobilization, Passive ROM, Soft tissue mobilization For the Purpose of:: To decrease pain, To decrease swelling/inflammation, To increase ROM, To improve safety Functional electric stimulation: Yes TENS: Yes Vasopneumatic device: Yes For the Purpose of:: To decrease pain, To decrease swelling/inflammation, To increase ROM, To assume or resume ADL's Thank you for the opportunity to evaluate your patient. For Medicare and Medicare HMO plans, please review the plan of care and approve it. It will need to be FAXED BACK to us at [phone] for Medicare purposes. For Medicare only, by signing this I certify the plan of care. Please let me know if there are questions or concerns regarding this plan of care. Physician Signature: Date:
--- NOTE | 2022-10-30 14:22 | HP.PTDCSUM_ITS ---
Discharge Summary D/C summary: It has been my pleasure to treat ANA PAULA PLUNKETT referred by Dr. Sp De Jesus MD, with the diagnosis of R TKR for a total of 13 visit(s). Discharge Date: 10/30/22 Please see the following information for a summary of their discharge status. Subjective Subjective: I'm doing pretty good although I may have over did it this week as both my knees are sore. I feel a little over 90% better. I've been working at . Couple of questions for you, can I kneel and how to get up off the floor. Told Ana Paula we would prefer not to kneel but okay once in a while and demo'd a split lunge to get up Pain R knee: Pain Intensity (Out of 10): 1 Overall Improvement % Improvement: 93 Objective Objective/Function: MMT R 39.5 ext. 25 L 40.5 ext R 0 ext 125 flexion which are excellent Goals Goal 1:: Return demo [facility], Understand symptoms of DVT Goal Progress: Goal Met Goal 2:: Improve ROM 10% with 2 weeks Goal Progress: Goal Met Goal 3:: Wean from walker as appropriate, increase walking distance to community 500+ feet Goal Progress: Goal Met Plan Plan: Discharge to [facility] call with any questions D/C Information Discharge Comments: Ana Puala progressed nicely. It appears as her Left knee is giving her issues now. May hold off on another replacement. Couple months out from f/u with ROM , MMT and activity level all improving. d/c sentence: If there are questions or concerns regarding this patient's physical therapy, please feel free to call me at [phone]. Thank you for the referral of this patient. Sincerely, Abiel Apple, PT, PARDEEP, SCS, CSCS Balance/Gait/Functional tests Balance/Special Test Scores WOMAC Total Score: 16 WOMAC Percentage: 82.6100
== END 2022-10-30 19:00 | disposition home or self-care (01) ==
LOC: PT 11:30
PROVIDERS: PCP Family Medicine; Referring Provider Orthopaedic Surgery; Visit Provider Orthopaedic Surgery
DX: M17.11 Unilateral primary osteoarthritis, right knee (principal)
CPT/HCPCS: 97016; 97110; 97140; 97162; 97164

== ENCOUNTER → 2023-03-31 | Outpatient (CLI) | payer MEDICARE, SELFPAY ==
[2023-03-31 12:15] LABS: Absolute Lymphocyte Count 1.88 X10^3/uL (0.83-4.51); Absolute Neutrophil Count 3.7 X10^3/uL (2.0-7.7); Basophil# 0.04 X10^3/uL; Basophil% 0.6 % (0-1); Eosinophil# 0.19 X10^3/uL; Eosinophils% 2.9 % (0-5); Hemoglobin 13.4 g/dL (12.0-15.0); Lymphocyte # 1.88 X10^3/ul (0.83-4.51); Mean Corp Hgb Conc 32.7 g/dL (32-36); Mean Corpuscular Hgb 30.1 pg (27.0-32.0); Mean Corpuscular Volume 92.1 fL (81-99); Mean Platelet Vol. 10.5 fl (6.2-12.0); Monocyte# 0.63 X10^3/uL; Monocyte% 9.7 % (0-10); NRBC Flagged by Analyzer 0 % (0-5); Neutrophil # 3.72 X10^3/uL (2.7-7.7); Neutrophil % 57.5 % (47-70); Platelet Count 264 K/mm3 (150-450); RBC Distribution Width SD 44.1 fl (35.1-43.9); Red Blood Count 4.45 M/mm3 (4.2-5.4); White Blood Count 6.5 K/mm3 (4.4-11.0)
[2023-03-31 12:52] LABS: ALB/GLOB Ratio 0.9 RATIO (0.9-2.4); AST(SGOT) 16 U/L (15-37); Alanine Aminotransfer ALT/SGPT 23 U/L (13-56); Albumin, Serum 3.3 g/dL (3.2-5.0); Alkaline Phosphatase 97 U/L (45-117); Anion Gap 4 (5-15); BUN 19 mg/dL (7-18); BUN/Creat Ratio 33.9 RATIO (10-20); Calcium,Total 8.8 mg/dL (8.5-10.1); Chloride 111 mmol/L (98-107); Cholesterol 194 mg/dL (200); Creatinine, Serum 0.56 mg/dL (0.55-1.02); EST Glomerular Filtration Rate 113 mL/min (>60); Est Glom Filt Rate - Afr Amer 136 mL/min (>60); Globulin 3.7 g/dL (2.2-4.2); Glucose 85 mg/dL (74-106); High Density Lipoprotein 60 mg/dL; Potassium 3.9 mmol/L (3.5-5.1); Sodium Level 142 mmol/L (136-145); Thyroid Stim Hormone (TSH) 0.04 uIU/mL (0.358-3.74); Triglycerides 168 mg/dL; Very Low Density Lipoprotein 34 mg/dL (5-40)
== END | disposition home or self-care (01) ==
LOC: MTLAB 10:21
PROVIDERS: PCP Family Medicine; Referring Provider Family Medicine; Visit Provider Family Medicine
DX: Z00.00 Encounter for general adult medical examination without abnormal findings (principal); E03.9 Hypothyroidism, unspecified; E78.5 Hyperlipidemia, unspecified
CPT/HCPCS: 36415; 80053; 80061; 84443; 85025

== ENCOUNTER → 2023-07-03 | Outpatient (CLI) | payer MEDICARE, SELFPAY ==
[2023-07-03 16:09] LABS: Vitamin B12 911 pg/mL (211-911)
[2023-07-03 16:12] LABS: T4 Free Direct 0.92 ng/dL (0.76-1.46); Thyroid Stim Hormone (TSH) 0.28 uIU/mL (0.358-3.74)
== END | disposition home or self-care (01) ==
LOC: MTLAB 14:19
PROVIDERS: PCP Family Medicine; Referring Provider Family Medicine; Visit Provider Family Medicine
DX: R00.2 Palpitations (principal); E03.9 Hypothyroidism, unspecified; R53.83 Other fatigue
CPT/HCPCS: 36415; 82607; 84439; 84443

== ENCOUNTER 2023-11-16 17:30 | Outpatient (RCR) | payer MEDICARE, SELFPAY ==
--- NOTE | 2023-09-28 19:58 | HP.PTEVAL ---
Patient's Visit Information Visit Information Visit Information: ISAURO PLUNKETT is a 73 year old F referred to Physical Therapy by Dr. Sp De Jesus MD with a diagnosis of S/P L TKR 09/22/2023. Date of Evaluation: 09/28/23 Physical Therapist: Denita Wills, PT, Cert MDT Visit Plan Frequency: 2-3x /Week Duration: 4-6 Weeks Plan: GAIT TRAINING WBAT. EDEMA CONTROL. TKR REHAB FOR ROM AND STRENGTHENING. 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 BABYSIT 2 YEAR OLD GRANDCHILD DURING THE SCHOOL YEAR A COUPLE DAYS A WEEK. Present symptoms: L THIGH, KNEE AND LOWER LEG PAIN. A LOT OF SWELLING AND MORE SWELLING THAN SHE REMEMBERS HAVING THE LAST TIME. Present since: CHRONIC L KNEE PAIN Pain Scale: WORST 9/10, LEAST 4/10 Currently: 7/10 Is it getting better, worse or staying the same: STAYING THE SAME Commenced as a result of: ARTHRITIS Worse: STANDING AND WALKING, EXERCISES, VISITING WITH FAMILY Better: ICING AND ELEVATING, OXICODONE, TYLONOL Disturbed sleep: YES. SLEEPING IN BED Previous history/Previous treatment: GEL AND CORTISNE SHOTS PRIOR TO THIS L TKR. Treatment this episode: ONE PT SESSION. HEP 2X'S A DAY 10 TO 20 REPS Gait: USING FWW Bowel or Bladder Dysfunction: URINARY INCONTINENCE Unexplained weight loss: NO PMH/Recent major surgery: R TKR AUGUST 2022. JULY 2021 GALLBLADDER REMOVAL. HYPOTHYROIDISM. HIGH CHOLESTEROL. RLS. OA. SVT ATTACK SEP 02 2022 AFTER LAST TKR BUT CLEARED BY CARDIO FOR THIS TKR. Objective Objective: GAIT: THIS PATIENT AMBULATES INDEP'LY INTO PT TODAY WITH A FWW, DECREASED CADANCE AND A MILD LIMP ON THE LLE. NO LOB. WOMAC score: 83/96 TU.03 SEC WITH FFW Girth L Patella 52 cm Girth 6 inch suprapatella 69.5 cm L knee flexion AROM: 76 degress L knee ext AROM: -9 MEASURED IN POUNDS OF PEAK FORCE: L knee flex MMT: 8.6, R 11.6 L knee ext MMT: 7.3, R 16.9 L hip MMT: 6.4, R 14.7 MARSHA ANKLE DORSI FLEX MMT: 5/5. Sensory deficit: L LE LIGHT TOUCH SENSATION GROSSLY INTACT EXCEPT DECREASED R LATERAL KNEE DECREASED LIGHT TOUCH SINCE TKR LAST YEAR PER PATIENT REPORT. L TKR BANDAGE PREVENTS FULL L KNEE TESTING. Observation: Large amt. of LLE ecchymosis. There is a small amt. of red drainage on L knee bandage. patient reports she is allowed to remove it tomorrow. Balance/Special Test Scores WOMAC Total Score: 83 WOMAC Percentatge: 13.5500 Goals Goal 1:: PATIENT TO REPORT 3/10 LEFT LE PAIN OR LESS WITH ALL ACTIVITIES. Goal Time Frame: 8-12 Weeks Goal 2:: PATIENT WILL HAVE DECREASED EDEMA IN LLE SYMMETRICAL TO RLE. Goal Time Frame: 8-12 Weeks Goal 3:: PATIENT WILL HAVE INCREASED L KNEE ROM TO AT LEAST 0-120 DEG FLEXION. Goal Time Frame: 8-12 Weeks Goal 4:: PATIENT WILL HAVE INCREASED LLE STRENGTH TO SYMMETRICAL WITH RLE ALLOWING FOR INCREASED STABILITY WITH ALL GAIT ACTIVITIES. Goal Time Frame: 8-12 Weeks Goal 5:: PATIENT WILL HAVE NORMAL GAIT PATTERN WITHOUT USE OF AD. Goal Time Frame: 8-12 Weeks Goal 6:: PATIENT WILL BE ABLE TO NEGOTIATE STEPS WITH 1 HR WITH RECIPROCAL PATTERN WITHOUT LIMITATIONS. Goal Time Frame: 8-12 Weeks Rehabilitation Potential Physical Therapy Diagnosis: PATIENT HAS SIGNS AND SYMPTOMS CONSISTENT WITH L TKA. SHE HAS SUBSEQUENT HYPOMOBILITY, WEAKNESS, SWELLING, DIFFICULTY WALKING AND INCREASED PAIN. SHE WOULD BENEFIT FROM PT TO ADDRESS THE ABOVE LIMITATIONS TO PROGRESS BACK TO ALL RECREATIONAL ACTIVITIES WITHOUT LIMITATIONS. Rehabilitation Potential: Good Anticipated Interventions Patient/Client Instruction: Educate patient on: Condition, Plan of Care and Risk Factors For the Purpose of:: To improve self management Therapeutic Exercise to Include: Strength training, Flexibilty training, Gait and locomotor training, Neuromotor development, Passive ROM and Active ROM For the Purpose of:: To decrease pain, To decrease swelling/inflammation, To increase ROM, To improve muscle performance and motor function, To improve ability to perform ADL's, To increase tolerance to activity/condition/position, To improve performance and independence with ADL's, To improve ability of physical actions for home/community/work/leisure, To improve gait and locomotor functions, To decrease soft tissue restriction and To increase flexibility/ROM Manual Therapy Techniques to Include: Mobilization and Passive ROM Comment: KNEE INCLUDING PATELLA For the Purpose of:: To increase ROM Cryotherapy (ice pack, ice massage): Yes Vasopneumatic device: Yes For the Purpose of:: To decrease pain and To decrease swelling/inflammation Text: Thank you for the opportunity to evaluate your patient. For Medicare and Medicare HMO plans, please review the plan of care and approve it. It will need to be FAXED BACK to us at [phone] for Medicare purposes. For Medicare only, by signing this I certify the plan of care. Please let me know if there are questions or concerns regarding this plan of care. Physician Signature: Date:
--- NOTE | 2023-10-07 13:52 | HP.PTDCSUM_ITS ---
Discharge Summary D/C summary: It has been my pleasure to treat ISAURO PLUNKETT referred by Dr. Sp De Jesus MD, with the diagnosis of S/P L TKR 09/22/2023 for a total of 4 visit(s). Discharge Date: Please see the following information for a summary of their discharge status. Subjective Subjective: pt came w/ new orders for PT for back. Order given to front office help to address this for pt. pt took pain med before PT session today. Saw surgeon yesterday, per pt, Dr is happy w/ progress. Had x-rays done of back yesterday. Pain L knee: Pain Intensity (Out of 10): 8 LB: Pain Intensity (Out of 10): 7 Objective Objective/Function: 5/10 back pain post session. Modified the ex today to reduce pt LB pain. pt did well w/ this and noted the VASO is helpful and helps reduce her swelling . pt is doing well considering. Goals Goal 1:: PATIENT TO REPORT 3/10 LEFT LE PAIN OR LESS WITH ALL ACTIVITIES. Goal 2:: PATIENT WILL HAVE DECREASED EDEMA IN LLE SYMMETRICAL TO RLE. Goal 3:: PATIENT WILL HAVE INCREASED L KNEE ROM TO AT LEAST 0-120 DEG FLEXION. Goal 4:: PATIENT WILL HAVE INCREASED LLE STRENGTH TO SYMMETRICAL WITH RLE ALLOWING FOR INCREASED STABILITY WITH ALL GAIT ACTIVITIES. Goal 5:: PATIENT WILL HAVE NORMAL GAIT PATTERN WITHOUT USE OF AD. Goal 6:: PATIENT WILL BE ABLE TO NEGOTIATE STEPS WITH 1 HR WITH RECIPROCAL PATTERN WITHOUT LIMITATIONS. Plan Plan: GAIT TRAINING WBAT. EDEMA CONTROL. TKR REHAB FOR ROM AND STRENGTHENING. D/C Information d/c sentence: If there are questions or concerns regarding this patient's physical therapy, please feel free to call me at [phone]. Thank you for the referral of this patient. Sincerely, Denita Wills, PT, Cert MDT Balance/Gait/Functional tests Balance/Special Test Scores WOMAC Total Score: 83 WOMAC Percentage: 13.5503
--- NOTE | 2023-10-13 14:20 | HP.PTREVAL ---
Re-Evaluation Intro: Dr. Sp De Jesus MD, It has been my pleasure to treat ISAURO PLUNKETT over the last 6 visits for S/P L TKR 09/22/2023. Please see the progress note below for an update on the physical therapy plan of care! Subjective Subjective: Present symptoms: CENTRAL AND LEFT LOW BACK PAIN. L BUTTOCK, LEFT THIGH, LEFT LEG, ANKLE AND FOOT (DORSOM) PAIN. PATIENT ALSO REPORTS TINGLING TYPE SYMPTOM DOWN LLE. Present since: CHRONIC. FLARED UP PAIN MEDS FOR TKR WERE WEARING OFF. FLARE UP BEFORE TKR TOO BUT GOT BETTER. Pain Scale: WORST 9/10, LEAST 5/10 Currently: 7/10 Is it getting better, worse or staying the same: GETTING WORSE Commenced as a result of: TKR Worse: PROLONGED SITTING, FLEXING KNEE, SLR'S Better: WALKING WITH WALKER, LYING IN BED WITH ICE MACHINE AND OXICODONE Disturbed sleep: YES Previous history/Previous treatment: NO BACK SX. NO COCO'S. A LOT OF CHIROPRRACTIC FOR ABOUT 10 YEARS. GABAPENTIN. CELEBREX. Treatment this episode: PREDNISONE ON DAY 7 OF 3 WKS. OXICODONE. TYLONOL. Coughing/sneezing/straining: NEGATIVE FOR INCREASED BACK PAIN. Bowel or Bladder Dysfunction: NO LOSS OF BOWEL CONTROL. URINARY INCONTINENCE - WEARS A PAD - PCP AWARE. Imaging: RECENT X-RAYS LAST WK WITH DR. DE JESUS AND IN THE PAST WITH DR. TODD - SCOLIOSIS AND L45 DDD PER REPORT. PATIENT REPORTS DR. DE JESUS TOOK AN X-RAY OF HER HIP AND SAID IT LOOKS GOOD. Objective Objective/Function: PATIENT WAS SEEN TODAY FOR ASSESSMENT OF HER LOW BACK PAIN. SHE RESPONDED WELL TODAY TO UNLOADING OF HER SPINE IN HOOKLYING AND TREATMENT BELOW FOR BACK AND LLE SX'S. UPON EXAM TODAY: Sitting/Standing Posture: ANT PELVIC TILT. NO RELEVANT LATERAL SHIFT Other Observations: INDEP GAIT INTO PT WITH ST CANE. FAIR CADANCE. INDEP TRANSFERS. ROM deficit: L KNEE AROM IN SUPINE WITH HEEL SLIDE 0-105 DEG, (113 DEG WITH PATIENT PASSIVE OVER-PRESSURE) Lumbar mvmt loss: flex - NIL - NE ext - MOD - INCREASE - W R SG - MOD - NE L SG - MOD - INCREASE - W Core strength: POOR Palpation: NO ACUTE LUMBAR, SACRAL OR MARSHA HIP TENDERNESS. TREATMENT: NEUROMUSCULAR REEDUCATION - RETRAINING OF MVMT AND POSTURE FOR SITTING, LYING AND STANDING ACTIVITIES. Plan Plan Plan: CONTINUE TKR REHAB AND ADD: SUPINE ISO ABDOMINALS/TA PPT'S SKTC LTR (MAY WANT TO CONSIDER AQUATIC THERAPY IN FUTURE IF NEEDED ONCE INCISION IS FULLY HEALED). CONT: GAIT TRAINING WBAT. EDEMA CONTROL. TKR REHAB FOR ROM AND STRENGTHENING. Balance/Gait/Functional tests Balance/Special Test Scores Oswestry Low Back Score: 31 WOMAC Total Score: 83 WOMAC Percentage: 13.5500 Goals Goals Goal 1:: PATIENT TO REPORT 3/10 LEFT LE PAIN OR LESS WITH ALL ACTIVITIES. Goal Time Frame: 8-12 Weeks Goal 2:: PATIENT WILL HAVE DECREASED EDEMA IN LLE SYMMETRICAL TO RLE. Goal Time Frame: 8-12 Weeks Goal 3:: PATIENT WILL HAVE INCREASED L KNEE ROM TO AT LEAST 0-120 DEG FLEXION. Goal Time Frame: 8-12 Weeks Goal 4:: PATIENT WILL HAVE INCREASED LLE STRENGTH TO SYMMETRICAL WITH RLE ALLOWING FOR INCREASED STABILITY WITH ALL GAIT ACTIVITIES. Goal Time Frame: 8-12 Weeks Goal 5:: PATIENT WILL HAVE NORMAL GAIT PATTERN WITHOUT USE OF AD. Goal Time Frame: 8-12 Weeks Goal 6:: PATIENT WILL BE ABLE TO NEGOTIATE STEPS WITH 1 HR WITH RECIPROCAL PATTERN WITHOUT LIMITATIONS. Goal Time Frame: 8-12 Weeks Anticipated Interventions Anticipated Interventions Patient/Client Instruction: Educate patient on: Condition, Plan of Care and Risk Factors For the Purpose of:: To improve self management Therapeutic Exercise to Include: Strength training, Flexibilty training, Gait and locomotor training, Neuromotor development, Passive ROM and Active ROM For the Purpose of:: To decrease pain, To decrease swelling/inflammation, To increase ROM, To improve muscle performance and motor function, To improve ability to perform ADL's, To increase tolerance to activity/condition/position, To improve performance and independence with ADL's, To improve ability of physical actions for home/community/work/leisure, To improve gait and locomotor functions, To decrease soft tissue restriction and To increase flexibility/ROM Manual Therapy Techniques to Include: Mobilization and Passive ROM Comment: KNEE INCLUDING PATELLA For the Purpose of:: To increase ROM Cryotherapy (ice pack, ice massage): Yes Vasopneumatic device: Yes For the Purpose of:: To decrease pain and To decrease swelling/inflammation Re-Evaluation Ending Re-evaluation ending: Please do not hesitate to contact me at [phone] by phone or if you have questions or concerns regarding this new plan of care! Sincerely, Denita Wills, PT, Cert MDT
--- NOTE | 2023-10-13 14:39 | HP.PTEVAL ---
Patient's Visit Information Visit Information Visit Information: ISAURO PLUNKETT is a 73 year old F referred to Physical Therapy by Dr. Sp De Jesus MD with a diagnosis of S/P L TKR 09/22/2023. Date of Evaluation: 09/28/23 Physical Therapist: Denita Wills, PT, Cert MDT Visit Plan Frequency: 2-3x /Week Duration: 4-6 Weeks Plan: CONTINUE TKR REHAB AND ADD: SUPINE ISO ABDOMINALS/TA PPT'S SK[facility] LTR (MAY WANT TO CONSIDER AQUATIC THERAPY IN FUTURE IF NEEDED ONCE INCISION IS FULLY HEALED). CONT: GAIT TRAINING WBAT. EDEMA CONTROL. TKR REHAB FOR ROM AND STRENGTHENING. 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 BABYSIT 2 YEAR OLD GRANDCHILD DURING THE SCHOOL YEAR A COUPLE DAYS A WEEK. Present symptoms: L THIGH, KNEE AND LOWER LEG PAIN. A LOT OF SWELLING AND MORE SWELLING THAN SHE REMEMBERS HAVING THE LAST TIME. Present since: CHRONIC L KNEE PAIN Pain Scale: WORST 9/10, LEAST 4/10 Currently: 7/10 Is it getting better, worse or staying the same: STAYING THE SAME Commenced as a result of: ARTHRITIS Worse: STANDING AND WALKING, EXERCISES, VISITING WITH FAMILY Better: ICING AND ELEVATING, OXICODONE, TYLONOL Disturbed sleep: YES. SLEEPING IN BED Previous history/Previous treatment: GEL AND CORTISNE SHOTS PRIOR TO THIS L TKR. Treatment this episode: ONE PT SESSION. HEP 2X'S A DAY 10 TO 20 REPS Gait: USING FWW Bowel or Bladder Dysfunction: URINARY INCONTINENCE Unexplained weight loss: NO PMH/Recent major surgery: R TKR AUGUST 2022. JULY 2021 GALLBLADDER REMOVAL. HYPOTHYROIDISM. HIGH CHOLESTEROL. RLS. OA. SVT ATTACK SEP 02 2022 AFTER LAST TKR BUT CLEARED BY CARDIO FOR THIS TKR. Pain L knee: Pain Intensity (Out of 10): 4 LB: Pain Intensity (Out of 10): 7 Comment: down L LE Objective Objective: GAIT: THIS PATIENT AMBULATES INDEP'LY INTO PT TODAY WITH A FWW, DECREASED CADANCE AND A MILD LIMP ON THE LLE. NO LOB. WOMAC score: 83/96 TU.03 SEC WITH FFW Girth L Patella 52 cm Girth 6 inch suprapatella 69.5 cm L knee flexion AROM: 76 degress L knee ext AROM: -9 MEASURED IN POUNDS OF PEAK FORCE: L knee flex MMT: 8.6, R 11.6 L knee ext MMT: 7.3, R 16.9 L hip MMT: 6.4, R 14.7 MARSHA ANKLE DORSI FLEX MMT: 5/5. Sensory deficit: L LE LIGHT TOUCH SENSATION GROSSLY INTACT EXCEPT DECREASED R LATERAL KNEE DECREASED LIGHT TOUCH SINCE TKR LAST YEAR PER PATIENT REPORT. L TKR BANDAGE PREVENTS FULL L KNEE TESTING. Observation: Large amt. of LLE ecchymosis. There is a small amt. of red drainage on L knee bandage. patient reports she is allowed to remove it tomorrow. Balance/Special Test Scores Oswestry Low Back Score: 31 WOMAC Total Score: 83 WOMAC Percentatge: 13.5500 Goals Goal 1:: PATIENT TO REPORT 3/10 LEFT LE PAIN OR LESS WITH ALL ACTIVITIES. Goal Time Frame: 8-12 Weeks Goal 2:: PATIENT WILL HAVE DECREASED EDEMA IN LLE SYMMETRICAL TO RLE. Goal Time Frame: 8-12 Weeks Goal 3:: PATIENT WILL HAVE INCREASED L KNEE ROM TO AT LEAST 0-120 DEG FLEXION. Goal Time Frame: 8-12 Weeks Goal 4:: PATIENT WILL HAVE INCREASED LLE STRENGTH TO SYMMETRICAL WITH RLE ALLOWING FOR INCREASED STABILITY WITH ALL GAIT ACTIVITIES. Goal Time Frame: 8-12 Weeks Goal 5:: PATIENT WILL HAVE NORMAL GAIT PATTERN WITHOUT USE OF AD. Goal Time Frame: 8-12 Weeks Goal 6:: PATIENT WILL BE ABLE TO NEGOTIATE STEPS WITH 1 HR WITH RECIPROCAL PATTERN WITHOUT LIMITATIONS. Goal Time Frame: 8-12 Weeks Rehabilitation Potential Physical Therapy Diagnosis: PATIENT HAS SIGNS AND SYMPTOMS CONSISTENT WITH L TKA. SHE HAS SUBSEQUENT HYPOMOBILITY, WEAKNESS, SWELLING, DIFFICULTY WALKING AND INCREASED PAIN. SHE WOULD BENEFIT FROM PT TO ADDRESS THE ABOVE LIMITATIONS TO PROGRESS BACK TO ALL RECREATIONAL ACTIVITIES WITHOUT LIMITATIONS. Rehabilitation Potential: Good Anticipated Interventions Patient/Client Instruction: Educate patient on: Condition, Plan of Care and Risk Factors For the Purpose of:: To improve self management Therapeutic Exercise to Include: Strength training, Flexibilty training, Gait and locomotor training, Neuromotor development, Passive ROM and Active ROM For the Purpose of:: To decrease pain, To decrease swelling/inflammation, To increase ROM, To improve muscle performance and motor function, To improve ability to perform ADL's, To increase tolerance to activity/condition/position, To improve performance and independence with ADL's, To improve ability of physical actions for home/community/work/leisure, To improve gait and locomotor functions, To decrease soft tissue restriction and To increase flexibility/ROM Manual Therapy Techniques to Include: Mobilization and Passive ROM Comment: KNEE INCLUDING PATELLA For the Purpose of:: To increase ROM Cryotherapy (ice pack, ice massage): Yes Vasopneumatic device: Yes For the Purpose of:: To decrease pain and To decrease swelling/inflammation Text: Thank you for the opportunity to evaluate your patient. For Medicare and Medicare HMO plans, please review the plan of care and approve it. It will need to be FAXED BACK to us at [phone] for Medicare purposes. For Medicare only, by signing this I certify the plan of care. Please let me know if there are questions or concerns regarding this plan of care. Physician Signature: Date:
--- NOTE | 2023-10-28 14:31 | HP.PTREVAL ---
Re-Evaluation Intro: Dr. Sp De Jesus MD, It has been my pleasure to treat ISAURO PLUNKETT over the last 9 visits for S/P L TKR 09/22/2023. Please see the progress note below for an update on the physical therapy plan of care! Subjective Subjective: PATIENT REPORTS HER KNEE IS DOING REALLY GOOD AND HER BACK IS GETTING BETTER. STATES SHE IS DOING HER HEP AND GOING TO THE CHIROPRACTOR. STATES HER KNEE IS 85% BETTER AND HER BACK ABOUT 60% BETTER. REPORTS SHE IS GETTING STRONGER AND HOPING TO BE ABLE TO SAFELY TRANSITION TO THE MACHINES AND USE HER [employer] MEMBERSHIP WITHOUT HURTING HER BACK. Objective Objective/Function: THIS PATIENT IS MAKING GOOD PROGRESS WITH PT AND IS A GOOD CANDIDATE TO CONTINUE PT FOR CORE AND LE STRENGTHENING ALONG WITH FURHTER R LE EDEMA CONTROL. UPON EXAM TODAY SHE AMBULATES INDEP'LY INTO PT WITHOUT AD AND VEY MILD LIMP ON LLE. NO LOB. SHE IS ABLE TO ASCEND AND DESCEND STEPS RECIP WITH ONE HR WITHOUT LIMITATION. WOMAC score: 23/96 TU.98 SEC W/O AD Girth L Patella 49.5 cm Girth 6 inch suprapatella 66.5 cm L knee flexion AROM: 120 degress L knee ext AROM: FULL EXT OTHER: PATIENT IS ABLE TO INDEP'LY TRANSFER FROM SIT TO STAND WITHOUT UE ASSIST. 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 Plan Plan Plan: CONTINUE PT 1X/WK X 3 WKS FOR FOR CORE AND LE STRENGTHENING ALONG WITH FURHTER R LE EDEMA CONTROL. HELP PATIENT TRANSITION TO INDEP AND SAFE GYM EX PROGRAM WITH FOR INDEP EX WITH USE OF HER [employer] POST PT. Balance/Gait/Functional tests Balance/Special Test Scores Oswestry Low Back Score: 31 WOMAC Total Score: 23 WOMAC Percentage: 76.0500 Goals Goals Goal 1:: PATIENT TO REPORT 3/10 LEFT LE PAIN OR LESS WITH ALL ACTIVITIES. Goal Time Frame: 8-12 Weeks Goal Progress: Progressing Goal 2:: PATIENT WILL HAVE DECREASED EDEMA IN LLE SYMMETRICAL TO RLE. Goal Time Frame: 8-12 Weeks Goal Progress: Progressing Goal 3:: PATIENT WILL HAVE INCREASED L KNEE ROM TO AT LEAST 0-120 DEG FLEXION. Goal Time Frame: 8-12 Weeks Goal Progress: Goal Met Goal 4:: PATIENT WILL HAVE INCREASED LLE STRENGTH TO SYMMETRICAL WITH RLE ALLOWING FOR INCREASED STABILITY WITH ALL GAIT ACTIVITIES. Goal Time Frame: 8-12 Weeks Goal Progress: Progressing Goal 5:: PATIENT WILL HAVE NORMAL GAIT PATTERN WITHOUT USE OF AD. Goal Time Frame: 8-12 Weeks Goal Progress: Progressing Goal 6:: PATIENT WILL BE ABLE TO NEGOTIATE STEPS WITH 1 HR WITH RECIPROCAL PATTERN WITHOUT LIMITATIONS. Goal Time Frame: 8-12 Weeks Goal Progress: Goal Met Anticipated Interventions Anticipated Interventions Patient/Client Instruction: Educate patient on: Condition, Plan of Care and Risk Factors For the Purpose of:: To improve self management Therapeutic Exercise to Include: Strength training, Flexibilty training, Gait and locomotor training, Neuromotor development, Passive ROM and Active ROM For the Purpose of:: To decrease pain, To decrease swelling/inflammation, To increase ROM, To improve muscle performance and motor function, To improve ability to perform ADL's, To increase tolerance to activity/condition/position, To improve performance and independence with ADL's, To improve ability of physical actions for home/community/work/leisure, To improve gait and locomotor functions, To decrease soft tissue restriction and To increase flexibility/ROM Manual Therapy Techniques to Include: Mobilization and Passive ROM Comment: KNEE INCLUDING PATELLA For the Purpose of:: To increase ROM Cryotherapy (ice pack, ice massage): Yes Vasopneumatic device: Yes For the Purpose of:: To decrease pain and To decrease swelling/inflammation Re-Evaluation Ending Re-evaluation ending: Please do not hesitate to contact me at [phone] by phone or if you have questions or concerns regarding this new plan of care! Sincerely, Denita Wills, PT, Cert MDT
--- NOTE | 2023-11-16 20:03 | HP.PTDCSUM ---
Discharge Summary D/C summary: It has been my pleasure to treat ISAURO PLUNKETT referred by Dr. Sp De Jesus MD, with the diagnosis of S/P L TKR 09/22/2023 for a total of 13 visit(s). Discharge Date: 11/16/23 Please see the following information for a summary of their discharge status. Subjective Subjective: PATIENT REPORTS SHE IS 98% BETTER IN TERMS OF HER L HIP (SCIATIC) AND KNEE. SHE REPORTS SHE CAN MANAGE HER SYMPTOMS NOW - THEY COME AND GO. SHE PLANS TO START BABYSITTING HER 2 YR OLD GRANDSON 2 DAYS A WEEK NEXT WEEK - THEY HAVE 3 FLIGHTS OF STEPS. SHE REPORTS SHE HAS DONE THE STEPS AND SHE CAN MANAGE THEM FINE. SHE REPORTS SHE IS DOING HER HOME EX'S AND SHE DOESN'T HAVE ANY QUESTIONS OR CONCERNS AT THIS POINT. Pain L knee: Pain Intensity (Out of 10): 2 LB: Pain Intensity (Out of 10): 1 Overall Improvement % Improvement: 85 Objective Objective/Function: UPON EXAM TODAY THIS PATIENT HAS MADE GOOD PROGRESS AND IS APPROPRIATE FOR AND WOULD LIKE TO BE DISCHARGED. SHE STILL HAS SCAB AT THE DISTAL L KNEE INCISION - NO DRAINAGE. REPORTS DR. DE JESUS TOLD HER TO KEEP A DRY BANDAID ON IT. THERE IS NOT REDNESS AROUND IT OR SIGNS OF INFECTION. ABLE TO GO UP AND DOWN STEPS RECIP. WITHOUT HR. UPON EXAM TODAY SHE AMBULATES INDEP'LY INTO PT WITHOUT AD AND VEY MILD LIMP ON LLE. SHE REPORTS THERE ARE TIMES THAT SHE CAN WALK WITHOUT ANY LIMP AT ALL. WOMAC score: 23/96 TU.95 SEC W/O AD Girth L Patella 48.5 cm Girth 6 inch suprapatella 64.5 cm L knee flexion AROM: 120 degress L knee ext AROM: FULL EXT STRENGTH MEASURED WITH STRAIN GUAGE IN PEAK FORCE POUNDS: HIP FLEXION: L 17.6, R 17.5 LBS KNEE EXT: L 24.8, R 24.6 LBS KNEE FLEX: L 21.1, R 26.2 LBS. Goals Goal 1:: PATIENT TO REPORT 3/10 LEFT LE PAIN OR LESS WITH ALL ACTIVITIES. Goal Progress: Goal Met Goal 2:: PATIENT WILL HAVE DECREASED EDEMA IN LLE SYMMETRICAL TO RLE. Goal Progress: Progressing Goal 3:: PATIENT WILL HAVE INCREASED L KNEE ROM TO AT LEAST 0-120 DEG FLEXION. Goal Progress: Goal Met Goal 4:: PATIENT WILL HAVE INCREASED LLE STRENGTH TO SYMMETRICAL WITH RLE ALLOWING FOR INCREASED STABILITY WITH ALL GAIT ACTIVITIES. Goal Progress: Progressing Goal 5:: PATIENT WILL HAVE NORMAL GAIT PATTERN WITHOUT USE OF AD. Goal Progress: Progressing Goal 6:: PATIENT WILL BE ABLE TO NEGOTIATE STEPS WITH 1 HR WITH RECIPROCAL PATTERN WITHOUT LIMITATIONS. Goal Progress: Goal Met Plan Plan: D/C. PATIENT AGREEABLE. D/C Information d/c sentence: If there are questions or concerns regarding this patient's physical therapy, please feel free to call me at [phone]. Thank you for the referral of this patient. Sincerely, Denita Wills, PT, Cert MDT Balance/Gait/Functional tests Balance/Special Test Scores Oswestry Low Back Score: 31 WOMAC Total Score: 23 WOMAC Percentage: 76.0500 Improvement % Improvement: 85
== END 2023-11-16 19:00 | disposition home or self-care (01) ==
LOC: PT 17:30
PROVIDERS: PCP Family Medicine; Referring Provider Orthopaedic Surgery; Visit Provider Orthopaedic Surgery
DX: M51.36 Other intervertebral disc degeneration, lumbar region (principal); M17.12 Unilateral primary osteoarthritis, left knee
CPT/HCPCS: 97016; 97110; 97140; 97162; 97164; 97530

== ENCOUNTER → 2024-01-01 | Outpatient (CLI) | payer MEDICARE, SELFPAY ==
--- NOTE | 2024-01-01 12:00 | VUL_PTH ---
PATIENT: ISAURO PLUNKETT LOC: [facility] U#:[id number] AGE/SX: 73/F ROOM: RE01/01/[address]: Dr. Mar Verduzco DO : 1950 BED: DIS: 01/01/2024 SPEC #: [id number] RECD: 01/01/24 15:16 STATUS: LATONIA VANNESSA #: [id number] RENETTA: 01/01/24 12:[address]: Mar Verduzco DEPT: SURGICAL PATHOLOGY RECD BY: Lola Jordan ENTERED: 01/04/24 10:38 SP TYPE: VULVA BX OTHR DR: Dr. Nel Engle MD Tissues: Vulva, NOS Procedures: Surgery Specimen Level IV HEADER OPERATION: Vulvar biopsy PRE-OP DIAGNOSIS: Atrophic vaginitis TISSUE SUBMITTED: Perineal biopsy MICROSCOPIC DIAGNOSIS Vulvar biopsy: Acanthosis and hyperkeratosis. Changes suggestive of Lichen sclerosus. Mild dermal chronic inflammation. See comment. 01/05/2024 COMMENT Special stain for fungi is negative for organisms; matched control is appropriate. Clinical correlation and appropriate follow up are necessary. Case has been reviewed in consultation with Dr. Elias who concurs with the above diagnosis. IDC:AM MICROSCOPIC DESCRIPTION Slides are reviewed. GROSS DESCRIPTION Received is one container labeled with the patient's name and not further designated. The specimen consists of one irregular fragment of smith-white skin tissue that measures 0.2 x 0.2 x 0.1 cm. The specimen is totally submitted in one cassette. 01/04/2024 TC:5 CPT:86884,00920
== END | disposition home or self-care (01) ==
LOC: LABSPEC 15:39
PROVIDERS: PCP Family Medicine; Referring Provider Obstetrics & Gynecology; Visit Provider Obstetrics & Gynecology
DX: N76.0 Acute vaginitis (principal)
CPT/HCPCS: 88305

== ENCOUNTER → 2024-01-20 | Outpatient (CLI) | payer MEDICARE, SELFPAY ==
[2024-01-20 12:16] LABS: Absolute Lymphocyte Count 1.74 X10^3/uL (0.83-4.51); Absolute Neutrophil Count 4.4 X10^3/uL (2.0-7.7); Basophil# 0.05 X10^3/uL; Basophil% 0.7 % (0-1); Eosinophil# 0.23 X10^3/uL; Eosinophils% 3.2 % (0-5); Hematocrit 42.9 % (37-47); Hemoglobin 13.5 g/dL (12.0-15.0); Lymphocyte # 1.74 X10^3/ul (0.83-4.51); Lymphocyte % 24.4 % (19-41); Mean Corp Hgb Conc 31.5 g/dL (32-36); Mean Corpuscular Hgb 28.8 pg (27.0-32.0); Mean Corpuscular Volume 91.7 fL (81-99); Mean Platelet Vol. 10.7 fl (6.2-12.0); Monocyte# 0.62 X10^3/uL; Monocyte% 8.7 % (0-10); NRBC Flagged by Analyzer 0 % (0-5); Neutrophil # 4.44 X10^3/uL (2.7-7.7); Neutrophil % 62.3 % (47-70); Platelet Count 328 K/mm3 (150-450); RBC Distribution Width CV 13.2 % (11.6-14.6); RBC Distribution Width SD 43.8 fl (35.1-43.9); Red Blood Count 4.68 M/mm3 (4.2-5.4); White Blood Count 7.1 K/mm3 (4.4-11.0)
[2024-01-20 13:14] LABS: ALB/GLOB Ratio 0.9 RATIO (0.9-2.4); AST(SGOT) 14 U/L (15-37); Alanine Aminotransfer ALT/SGPT 16 U/L (13-56); Albumin, Serum 3.5 g/dL (3.2-5.0); Alkaline Phosphatase 106 U/L (45-117); Anion Gap 4 (5-15); BUN 29 mg/dL (7-18); BUN/Creat Ratio 44.4 RATIO (10-20); Calcium,Total 9.5 mg/dL (8.5-10.1); Chloride 108 mmol/L (98-107); Creatinine, Serum 0.65 mg/dL (0.55-1.02); EST Glomerular Filtration Rate 94 mL/min (>60); Est Glom Filt Rate - Afr Amer 114 mL/min (>60); Glucose 104 mg/dL (74-106); Potassium 4.2 mmol/L (3.5-5.1); Protein, Total 7.5 g/dL (6.4-8.2); Sodium Level 140 mmol/L (136-145)
== END | disposition home or self-care (01) ==
LOC: BFHLAB 09:56
PROVIDERS: PCP Nurse Practitioner Family; Referring Provider Nurse Practitioner Family; Visit Provider Nurse Practitioner Family
DX: I10 Essential (primary) hypertension (principal)
CPT/HCPCS: 36415; 80053; 85025

== ENCOUNTER → 2024-04-04 | Outpatient (CLI) | payer MEDICARE, SELFPAY ==
--- NOTE | 2024-04-04 15:35 | RAD_ITS ---
STUDY: X-RAY CHEST REASON FOR EXAM: Female, 73 years old. RULE OUT PNEUMONIA TECHNIQUE: PA and lateral views of the chest. COMPARISON: 12/09/2017 FINDINGS: The lungs are clear and expanded. There is no demonstrated pleural abnormality. Normal size heart. Normal mediastinum and italo. Normal visualized pulmonary arteries. Normal visualized aortic arch and descending thoracic aorta. Normal visualized thoracic spine. Normal visualized ribs, clavicles, and shoulders. There is no demonstrated abnormality of the visualized soft tissue structures of the upper abdomen. RAD/Chest PA and Lateral IMPRESSION: Normal x-ray examination of the chest. Electronically Signed: Rogelio Hidalgo MD at 13:18 EST ,
== END | disposition home or self-care (01) ==
LOC: MTRAD 15:31
PROVIDERS: PCP Family Medicine; Referring Provider Nurse Practitioner Family; Visit Provider Nurse Practitioner Family
DX: R05.9 Cough, unspecified (principal)
CPT/HCPCS: 71046

== ENCOUNTER → 2024-06-29 | Outpatient (CLI) | payer MEDICARE, SELFPAY ==
[2024-06-29 12:48] LABS: Absolute Lymphocyte Count 1.69 X10^3/uL (0.83-4.51); Absolute Neutrophil Count 3.5 X10^3/uL (2.0-7.7); Basophil# 0.04 X10^3/uL; Basophil% 0.7 % (0-1); Eosinophil# 0.15 X10^3/uL; Eosinophils% 2.5 % (0-5); Hematocrit 43.3 % (37-47); Hemoglobin 14.1 g/dL (12.0-15.0); Lymphocyte # 1.69 X10^3/ul (0.83-4.51); Lymphocyte % 28.5 % (19-41); Mean Corp Hgb Conc 32.6 g/dL (32-36); Mean Corpuscular Hgb 29.4 pg (27.0-32.0); Mean Corpuscular Volume 90.2 fL (81-99); Mean Platelet Vol. 11.7 fl (6.2-12.0); Monocyte# 0.49 X10^3/uL; Monocyte% 8.3 % (0-10); NRBC Flagged by Analyzer 0 % (0-5); Neutrophil # 3.54 X10^3/uL (2.7-7.7); Neutrophil % 59.7 % (47-70); Platelet Count 281 K/mm3 (150-450); RBC Distribution Width CV 12.6 % (11.6-14.6); RBC Distribution Width SD 41.3 fl (35.1-43.9); White Blood Count 5.9 K/mm3 (4.4-11.0)
[2024-06-29 13:24] LABS: ALB/GLOB Ratio 1.4 RATIO (0.9-2.4); AST(SGOT) 22 U/L (<=31); Alanine Aminotransfer ALT/SGPT 19 U/L (<=34); Albumin, Serum 4.3 g/dL (3.4-4.8); Alkaline Phosphatase 106 U/L (35-104); Anion Gap 13 (5-15); BUN 17 mg/dL (4-19); BUN/Creat Ratio 24.5 RATIO (10-20); Carbon Dioxide 24.3 mmol/L (21.0-32.0); Chloride 102 mmol/L (98-108); Cholesterol 170 mg/dL (<=200); Creatinine, Serum 0.71 mg/dL (0.70-1.20); EST Glomerular Filtration Rate 90 (>60); Globulin 3.1 g/dL (2.2-4.2); Glucose 98 mg/dL (70-99); High Density Lipoprotein 46 mg/dL; Low Density Lipoprotein Calc. 99 mg/dL; Potassium 4.4 mmol/L (3.3-5.1); Protein, Total 7.4 g/dL (5.9-8.4); Sodium Level 138 mmol/L (133-145); Thyroid Stim Hormone (TSH) 0.005 uIU/mL (0.300-4.200); Total Bilirubin 1.22 mg/dL (0.00-1.30); Triglycerides 126 mg/dL; Very Low Density Lipoprotein 25 mg/dL (5-40)
== END | disposition home or self-care (01) ==
LOC: BFHLAB 10:19
PROVIDERS: PCP Family Medicine; Visit Provider Family Medicine
DX: E03.9 Hypothyroidism, unspecified (principal); E78.5 Hyperlipidemia, unspecified
CPT/HCPCS: 36415; 80053; 80061; 84439; 84443; 85025

== ENCOUNTER → 2024-09-21 | Outpatient (CLI) | payer MEDICARE, SELFPAY ==
[2024-09-21 11:27] LABS: Thyroid Stim Hormone (TSH) 0.009 uIU/mL (0.300-4.200)
== END | disposition home or self-care (01) ==
LOC: MTLAB 08:49
PROVIDERS: PCP Family Medicine; Referring Provider Family Medicine; Visit Provider Family Medicine
DX: E03.9 Hypothyroidism, unspecified (principal)
CPT/HCPCS: 36415; 84439; 84443

== ENCOUNTER → 2024-11-17 | Outpatient (CLI) | payer MEDICARE, SELFPAY ==
[2024-11-17 10:29] LABS: Hematocrit 39.0 % (37-47); Hemoglobin 12.9 g/dL (12.0-15.0); Immature Granulocytes Count 0.020 X10^3/uL (0.0-0.0); Mean Corp Hgb Conc 33.1 g/dL (32-36); Mean Corpuscular Volume 90.9 fL (81-99); Mean Platelet Vol. 11.1 fl (6.2-12.0); NRBC Flagged by Analyzer 0 % (0-5); Platelet Count 314 K/mm3 (150-450); RBC Distribution Width CV 13.2 % (11.6-14.6); RBC Distribution Width SD 43.1 fl (35.1-43.9); Red Blood Count 4.29 M/mm3 (4.2-5.4); White Blood Count 6.9 K/mm3 (4.4-11.0)
[2024-11-17 14:11] LABS: AST(SGOT) 18 U/L (<=31); Alanine Aminotransfer ALT/SGPT 16 U/L (<=34); Albumin, Serum 4.0 g/dL (3.4-4.8); Alkaline Phosphatase 114 U/L (35-104); Anion Gap 13 (5-15); BUN 16 mg/dL (4-19); BUN/Creat Ratio 24.2 RATIO (10-20); Calcium,Total 9.8 mg/dL (7.6-11.0); Carbon Dioxide 24.5 mmol/L (21.0-32.0); Chloride 103 mmol/L (98-108); Cholesterol 187 mg/dL (<=200); Globulin 3.1 g/dL (2.2-4.2); Glucose 96 mg/dL (70-99); Low Density Lipoprotein Calc. 106 mg/dL; Potassium 4.5 mmol/L (3.3-5.1); Triglycerides 150 mg/dL; Very Low Density Lipoprotein 30 mg/dL (5-40); cholesterol:hdl ratio screen 3.67
== END | disposition home or self-care (01) ==
PROVIDERS: PCP Family Medicine; Referring Provider Family Medicine; Visit Provider Family Medicine
DX: E03.9 Hypothyroidism, unspecified (principal); E78.5 Hyperlipidemia, unspecified
CPT/HCPCS: 36415; 80053; 80061; 84439; 84443; 85025

== ENCOUNTER → 2024-12-15 | Outpatient (CLI) | payer MEDICARE, SELFPAY ==
--- NOTE | 2024-12-15 08:14 | BI_ITS ---
EXAM: SCRN MAMM (CAD)W/SHAWNEE BILAT DATE: 12/15/2024 CLINICAL HISTORY: F, Age 74 y/o , SCREENING Grandmother with breast cancer. TECHNIQUE: Procedure Code: [id number] Modality: MG Procedure: SCRN MAMM (CAD)W/SHAWNEE BILAT COMPARISON: Prior exam(s) dated March 26, 2022.. FINDINGS: TISSUE DENSITY: There are scattered areas of fibroglandular density. Bilateral Breast Mammographic Findings: No significant masses, calcifications or other abnormalities are identified. Stable small benign-appearing bilateral axillary lymph nodes. No suspicious masses, areas of developing architectural distortion, or suspicious calcifications. There has been no significant interval change. BI/SCRN MAMM (CAD)W/SHAWNEE BILAT IMPRESSION: Stable bilateral screening mammogram. OVERALL FINAL ASSESSMENT BI-RADS 2: BENIGN RECOMMENDATION: Routine annual follow-up in 1 Year A letter with findings and recommendations will be mailed to the patient. Reading Location: [facility]
== END | disposition home or self-care (01) ==
LOC: OPBI 08:13
PROVIDERS: PCP Family Medicine; Referring Provider Family Medicine; Visit Provider Family Medicine
DX: Z12.31 Encounter for screening mammogram for malignant neoplasm of breast (principal); Z80.3 Family history of malignant neoplasm of breast
CPT/HCPCS: 77063; 77067

== ENCOUNTER → 2025-01-23 | Outpatient (CLI) | payer MEDICARE, SELFPAY | END | disposition home or self-care (01) | LOC: MTLAB 11:21 | PROVIDERS: PCP Family Medicine; Referring Provider Family Medicine; Visit Provider Family Medicine | DX: E03.9 Hypothyroidism, unspecified (principal) | CPT/HCPCS: 36415; 84439; 84443 ==